=== PATIENT | female | born 1960 | race Caucasian/White ===

== ENCOUNTER 2023-03-20 22:38 | Emergency (ER) | payer OTHER, SELFPAY ==
[2023-03-20 22:45] VITALS: BP 123/101; PULSE 85; RESP 22; O2SAT 92; BMI 48.5
[2023-03-20 23:36] VITALS: PULSE 84; RESP 22; O2SAT 91
[2023-03-20] MEDS: IPRATROPIUM/ALBUTEROL SULFATE 3 ML AMPUL.NEB IH (23:36)
[2023-03-21 00:05] VITALS: BP 122/97; PULSE 84; RESP 20; O2SAT 90
--- NOTE | 2023-03-21 00:05 | ED_ITS ---
HPI - SOB/Dyspnea General Chief Complaint: Shortness of Breath/Dyspnea Stated Complaint: SOB Time Seen by Provider: 03/21/23 00:05 Source: patient Mode of arrival: walk-in History of Present Illness HPI Narrative: history of COPD and diabetes. Presents complaining of shortness of breath for the past week. Increased tonight. No fever or chest pain. no associated nausea. Prescribed zithromax by her PCP and has completed 4 days of therapy. Has noticed a pruritic rash on her extremities and is questioning if she may be allergic to zithromax MD elicited complaint: shortness of breath Pertinent past history: COPD Onset (ago): week(s) Related Data Home Medications Medication Instructions Recorded Confirmed atorvastatin 20 mg tablet mg 03/20/23 citalopram 20 mg tablet mg 03/20/23 empagliflozin 25 mg tablet mg 03/20/23 (Jardiance) glimepiride 4 mg tablet mg 03/20/23 lisinopril 10 mg tablet mg 03/20/23 Allergies Allergy/AdvReac Type Severity Reaction Status Date / Time No Known Drug Allergies Allergy Verified 03/20/23 22:58 Review of Systems ROS Status of ROS 10 or more systems reviewed and unremarkable except as noted in history and below Respiratory Reports: shortness of breath, cough and wheezing Exam Constitutional Vital Signs - 24 hr 03/20/23 22:45 03/20/23 23:36 03/21/23 00:05 Pulse Rate [Monitor] 85 84 84 Respiratory Rate 22 22 20 Blood Pressure [Left Arm] 123/101 H 122/97 H Blood Pressure [Right Arm] Pulse Oximetry 92 L 91 L 90 L Oxygen Delivery Method Room Air Room Air Room Air Oxygen Delivery Flow Rate 03/21/23 00:08 03/21/23 01:00 Pulse Rate [Monitor] 82 77 Respiratory Rate 18 20 Blood Pressure [Left Arm] Blood Pressure [Right Arm] 122/76 H Pulse Oximetry 92 L 93 L Oxygen Delivery Method Nasal Cannula Nasal Cannula Oxygen Delivery Flow Rate 2 1.5 HENMT Common normals: normocephalic and head/scalp atraumatic Eye Common normals: PERRL, EOMs intact bilaterally and conjunctivae normal Neck & C-Spine Common normals: full ROM and no lymphadenopathy Chest Chest: symmetrical chest wall rise Other: diffuse wheeze Cardio Common normals: regular rate, regular rhythm and S1 normal heart sound GI Common normals: Normal to inspection, nondistended, normoactive bowel sounds present and soft to palpation Extremity Common normals: normal to inspection, normal capillary refill and no joint enlargement General: normal exam except as noted Neuro Common normals: oriented x3, CN's II-XII intact bilaterally, moves all extremities and no focal motor deficits Psych Appearance: grossly normal Course Vital Signs Vital signs: Vital Signs Pulse Rate 85 03/20/23 22:45 Respiratory Rate 22 03/20/23 22:45 Blood Pressure 123/101 H 03/20/23 22:45 Pulse Oximetry 92 L 03/20/23 22:45 Oxygen Delivery Method Room Air 03/20/23 22:45 Pulse Rate 77 03/21/23 01:00 Respiratory Rate 20 03/21/23 01:00 Blood Pressure 122/76 H 03/21/23 00:08 Pulse Oximetry 93 L 03/21/23 01:00 Oxygen Delivery Method Nasal Cannula 03/21/23 01:00 Oxygen Delivery Flow Rate 1.5 03/21/23 01:00 MDM - SOB/Dyspnea MDM Narrative Medical decision making narrative: history of COPD and diabetes. Presents ill for the past week with worsening cough. Exam with diffuse wheezing. cxray with bibasiar interstitial opacities. Patient improved and is wheezing less after duoneb x2 and solumedrol 125 IVP. blood cultures ordered and levaquin ordered for CAP. discussed with the hospi talist and patient accepted for admission Differential Diagnosis Differential diagnosis: Likely acute exacerbation of chronic obstructive airways disease and community acquired pneumonia Lab Data Labs: Lab Results 03/21/23 Range/Units 00:00 WBC 11.1 H (4.0-11.0) 10^3/uL RBC 5.41 H (4.20-5.40) 10^6/uL Hgb 14.8 (12.0-16.0) g/dL Hct 45.9 (36.0-48.0) % MCV 84.8 (81.0-99.0) fL MCH 27.4 (26.7-34.0) pg MCHC 32.2 (29.9-35.2) g/dL RDW 15.4 H (11.0-15.0) % Plt Count 319 (150-450) 10^3/uL MPV 10.6 (9.5-13.5) fL Neut % (Auto) 45.6 (43.0-75.0) % Lymph % (Auto) 42.0 (20.5-60.0) % [place] % (Auto) 8.4 (1.7-12.0) % Eos % (Auto) 2.6 (0.9-7.0) % Baso % (Auto) 0.8 (0.2-2.0) % Neut # (Auto) 5.0 (1.4-6.5) 10^3/uL Lymph # (Auto) 4.7 H (1.2-3.8) 10^3/uL [place] # (Auto) 0.9 H (0.3-0.8) 10^3/uL Eos # (Auto) 0.3 (0.0-0.7) 10^3/uL Baso # (Auto) 0.1 (0.0-0.1) 10^3/uL D-Dimer 0.34 (<=0.59) mg/L FEU Sodium 139 (136-145) mmol/L Potassium 4.4 (3.5-5.1) mmol/L Chloride 101 (98-107) mmol/L Carbon Dioxide 25.9 (21.0-32.0) mmol/L Anion Gap 16.5 BUN 13.0 (7.0-18.0) mg/dL Creatinine 0.80 (0.55-1.02) mg/dL Est GFR ( Amer) >60 (>=60) Est GFR (Non-Af Amer) >60 (>=60) BUN/Creatinine Ratio 16.2 Glucose 185 H (74-106) mg/dL Calcium 9.1 (8.5-10.1) mg/dL Troponin I High Sens 4.6 (4.0-51.3) pg/mL NT-Pro-B Natriuret Pep 46.0 (<=900.0) pg/mL Discharge Plan Discharge Chief Complaint: Shortness of Breath/Dyspnea Clinical Impression: Acute exacerbation of chronic obstructive pulmonary disease, Pneumonia, Acute infective exacerbation of chronic obstructive airway disease, Community acquired pneumonia Patient Disposition: Admitted As Inpatient
[2023-03-21 00:08] VITALS: BP 122/76; BP 138/29; PULSE 80; PULSE 82; RESP 16; RESP 18; O2SAT 92; O2SAT 94
--- NOTE | 2023-03-21 00:08 | XR_ITS ---
The [address] [address] Patient Name: MARCIE MENG MRN: [id number] date: 1960 Sex: F Assigned Patient Location: ER Current Patient Location: ER Accession/Order Number: [id number] Exam Date: 03/21/2023 00:10 Report Date: 03/21/2023 01:00 At the request of: CARMELITA BROUSSARD Procedure: XR chest 1V CXR HISTORY: Shortness of breath. COMPARISON: None. TECHNIQUE: 1 view of the chest submitted for review. FINDINGS: Interstitial opacities in the lung bases. The lungs are hyperaerated. The cardiac silhouette measures within normal. Pulmonary vascularity is unremarkable. Osseous structures are normal for age. IMPRESSION: Airspace opacities lung bases. Please correlate for pneumonia vs atelectasis. Electronically authenticated by: KENZIE BHAKTA Date: 03/21/2023 01:00
[2023-03-21 00:30] LABS: Basophils Absolute Auto 0.1 10^3/uL (0.0-0.1); Basophils Percent Auto 0.8 % (0.2-2.0); Eosinophils Absolute Auto 0.3 10^3/uL (0.0-0.7); Eosinophils Percent Auto 2.6 % (0.9-7.0); Hematocrit 45.9 % (36.0-48.0); Hemoglobin 14.8 g/dL (12.0-16.0); Immature Granulocytes Abs Auto 0.07 10^3/uL (0.00-0.03); Immature Granulocytes Pct Auto 0.6 % (0.0-0.5); Lymphocytes Absolute Auto 4.7 10^3/uL (1.2-3.8); Mean Corpuscular HGB Conc 32.2 g/dL (29.9-35.2); Mean Corpuscular Hemoglobin 27.4 pg (26.7-34.0); Mean Corpuscular Volume 84.8 fL (81.0-99.0); Mean Platelet Volume 10.6 fL (9.5-13.5); Monocytes Absolute Auto 0.9 10^3/uL (0.3-0.8); Monocytes Percent Auto 8.4 % (1.7-12.0); Neutrophils Percent Auto 45.6 % (43.0-75.0); Platelet Count 319 10^3/uL (150-450); Red Blood Count 5.41 10^6/uL (4.20-5.40); Red Cell Distribution Width 15.4 % (11.0-15.0); White Blood Count 11.1 10^3/uL (4.0-11.0)
[2023-03-21 00:49] LABS: Anion Gap 16.5; BUN Creatinine Ratio 16.2; Calcium 9.1 mg/dL (8.5-10.1); Carbon Dioxide 25.9 mmol/L (21.0-32.0); Chloride 101 mmol/L (98-107); Estimated GFR (African America >60 (>=60); Estimated GFR (Non-African Ame >60 (>=60); Glucose 185 mg/dL (74-106); Potassium 4.4 mmol/L (3.5-5.1); Sodium 139 mmol/L (136-145); Troponin I High Sensitivity 4.6 pg/mL (4.0-51.3)
[2023-03-21 00:55] LABS: D Dimer 0.34 mg/L FEU (<=0.59)
[2023-03-21] MEDS: METHYLPREDNISOLONE SOD SUCC PF 125 MG/2 ML VIAL IVP (00:55)
[2023-03-21 01:00] VITALS: PULSE 77; RESP 20; O2SAT 93
[2023-03-21] MEDS: IPRATROPIUM/ALBUTEROL SULFATE 3 ML AMPUL.NEB IH (01:00)
--- NOTE | 2023-03-21 03:51 | PC.NURSE ---
Patient zack out AMA. Would not be admitted. RX's provided. Instructed to return if worsens
== END 2023-03-21 03:52 | disposition left against medical advice (07) ==
PROVIDERS: Emergency Provider Internal Medicine; PCP Family Medicine
DX: J18.9 Pneumonia, unspecified organism (principal); J44.1 Chronic obstructive pulmonary disease with (acute) exacerbation; J44.0 Chronic obstructive pulmonary disease with (acute) lower respiratory infection; Z79.899 Other long term (current) drug therapy
CPT/HCPCS: 36415; 71045; 80048; 83880; 84484; 85025; 85378; 87040; 94640; 96365; 96368; 96375; 99285; J2930

== ENCOUNTER 2023-08-20 18:59 | Emergency (ER) | payer OTHER, SELFPAY ==
[2023-08-20 19:01] VITALS: BP 178/78; PULSE 100; RESP 20; TEMP 36.9; O2SAT 96; BMI 49.4
--- NOTE | 2023-08-20 19:09 | XR_ITS ---
The [place] [id number] Patient Name: MARCIE MENG MRN: [id number] date: 1960 Sex: F Assigned Patient Location: ER Current Patient Location: ED.MAIN Accession/Order Number: [id number] Exam Date: 08/20/2023 19:35 Report Date: 08/20/2023 19:56 At the request of: ANNEL MOON Procedure: XR hip RT 2V w/ pelvis EXAM: XR hip RT 2V w/ pelvis HISTORY: Pain COMPARISON: None. TECHNIQUE: AP pelvis and 2 views of the right hip FINDINGS: No osseous lesion, fracture, dislocation or subluxation. Symmetric bilateral hip joint space narrowing and small osteophytes. Age-related changes of the pubic symphysis and sacroiliac joints. Enthesophytes off the tendinous insertions.. No visualized effusion. XR/XR hip RT 2V w/ pelvis IMPRESSION: No visualized acute abnormality Electronically authenticated by: MISA TARIQ Date: 08/20/2023 19:56
--- NOTE | 2023-08-20 19:13 | PC.NURSE ---
pt presents to ED because patient states that she has osteoarthritis to right hip and needs a right hip replacement but has to lose weight before she is able to have the surgery done. patient states that she was on prednisone initially and was told that if that didn't help with the pain then she would end up needing cortisone shots but the patient has been scared to have them done. patient states today she was unable to get in to the bath d/t pain. pt did take a tylenol arthiritis around 9am. patient is able to bear weight to right leg. no new injury.
[2023-08-20] MEDS: KETOROLAC TROMETHAMINE 60 MG/2 ML VIAL IM (19:23)
--- NOTE | 2023-08-20 19:40 | ED.GENADUL1 ---
HPI - General Adult General Chief complaint: Extremity Problem, Nontraumatic Stated complaint: HIP PAIN Time Seen by Provider: 08/20/23 19:09 Source: patient Mode of arrival: walk-in Limitations: no limitations History of Present Illness HPI narrative: 63-year-old female presents here with chief complaint of exacerbation of left hip pain. Patient has chronic hip pain states over last three days since gotten colder she's had increased pain. Patient was taking steroids for her pain previously and states that are not helping. She has seen Dr. Leos for her hip. Patient's had no new injury or trauma.States she was told she needed his way in order to having his hip replacement. Patient is type II diabetic. Patient is ambulating and brought herself to the emergency room. Related Data Home Medications Medication Instructions Recorded Confirmed empagliflozin 25 mg tablet mg 03/20/23 (Jardiance) glimepiride 4 mg tablet mg 03/20/23 lisinopril 10 mg tablet 10 mg PO DAILY 03/20/23 08/20/23 dulaglutide 0.75 mg/0.5 mL mg subcut 08/20/23 subcutaneous pen injector (Trulicity) Allergies Allergy/AdvReac Type Severity Reaction Status Date / Time No Known Drug Allergies Allergy Verified 03/20/23 22:58 Review of Systems ROS Narrative All Systems are negative except as noted/marked.All systems reviewed and otherwise negative PFSH PFS Social History Smoking status: Former smoker Exam Narrative Exam Narrative: Nurses note and vital signs reviewed and patient is not hypoxic. General: The patient appears well and in no apparent distress. Patient is resting comfortably on cart. Skin: Warm, dry, no pallor noted. There is no rash noted. Head: Normocephalic, atraumatic Eye: Normal conjunctiva, no drainage, EOMI. PERRL Ears, Nose, Mouth, and Throat: oral mucosa is moist. Nares patent. Mouth without vesicles. Ear canals patent. Tm's without Erythema Musculoskeletal: left hip tenderness, no leg shortening, neurovascularly intact, all other extremities within normal limits patient has no evidence of calf tenderness, no pitting edema, symmetrical pulses noted bilaterally Neurological: A&O x4, normal speech Psychiatric: Cooperative Constitutional Vital Signs, click to edit/add: Last Vital Signs Temp 98.5 F 08/20/23 19:01 Pulse 100 H 08/20/23 19:01 Resp 20 08/20/23 19:01 BP 178/78 H 08/20/23 19:01 Pulse Ox 96 08/20/23 19:01 O2 Del Method Room Air 08/20/23 19:01 Course Vital Signs Vital signs: Vital Signs Temperature 98.5 F 08/20/23 19:01 Pulse Rate 100 H 08/20/23 19:01 Respiratory Rate 20 08/20/23 19:01 Blood Pressure 178/78 H 08/20/23 19:01 Pulse Oximetry 96 08/20/23 19:01 Oxygen Delivery Method Room Air 08/20/23 19:01 Temperature 98.5 F 08/20/23 19:01 Pulse Rate 100 H 08/20/23 19:01 Respiratory Rate 20 08/20/23 19:01 Blood Pressure 178/78 H 08/20/23 19:01 Pulse Oximetry 96 08/20/23 19:01 Oxygen Delivery Method Room Air 08/20/23 19:01 Medical Decision Making MDM Narrative Medical decision making narrative: Patient presented here chief complaint exacerbation of hip pain. Cc Dr. Leos. X-rays are consistent with chronic arthritis nothing acute. Patient be discharged home and been medicated with Toradol. Discharged home patient patient's 2nd encouraged to follow up with Deric's office. Medical Records Medical records reviewed: Yes I reviewed the patient's medical records Imaging Data hip: Attestation: I have reviewed the pertinent imaging results. My impression: no acute fracture Radiologist's impression: MARCIE MENG MRN: [facility]:[id number] date: 1960 Sex: F Assigned Patient Location: ER Current Patient Location: ED.MAIN Accession/Order Number: [id number] Exam Date: 08/20/2023 19:35 Report Date: 08/20/2023 19:56 At the request of: ANNEL MOON Procedure: XR hip RT 2V w/ pelvis EXAM: XR hip RT 2V w/ pelvis HISTORY: Pain COMPARISON: None. TECHNIQUE: AP pelvis and 2 views of the right hip FINDINGS: No osseous lesion, fracture, dislocation or subluxation. Symmetric bilateral hip joint space narrowing and small osteophytes. Age-related changes of the pubic symphysis and sacroiliac joints. Enthesophytes off the tendinous insertions.. No visualized effusion. IMPRESSION: No visualized acute abnormality Electronically authenticated by: MISA TARIQ Date: 08/20/2023 19 Discharge Plan Discharge Chief Complaint: Extremity Problem, Nontraumatic Clinical Impression: Chronic hip pain Patient Disposition: Home, Self-Care Time of Disposition Decision: 19:52 Condition: Good Prescriptions / Home Meds: No Action lisinopril 10 mg tablet 10 mg PO DAILY glimepiride 4 mg tablet Jardiance 25 mg tablet Trulicity 0.75 mg/0.5 mL pen injector SUBCUT Instructions: Chronic Pain (ED), Hip Pain (ED) Stand Alone Forms: Portal Instructions Referrals: RANJIT BARNARD [Primary Care Provider] - 1 week
== END 2023-08-20 20:21 | disposition home or self-care (01) ==
PROVIDERS: Emergency Provider Emergency Medicine; PCP Family Medicine
DX: M25.552 Pain in left hip (principal); G89.29 Other chronic pain; E11.9 Type 2 diabetes mellitus without complications; Z79.899 Other long term (current) drug therapy; Z87.891 Personal history of nicotine dependence; Z79.85 Long-term (current) use of injectable non-insulin antidiabetic drugs
CPT/HCPCS: 73502; 96372; 99284

== ENCOUNTER 2023-09-07 14:30 | Outpatient (OUT) | payer OTHER, SELFPAY | END 2023-09-07 14:31 | disposition home or self-care (01) | LOC: PST 14:30 | PROVIDERS: PCP Family Medicine; Visit Provider Surgery | DX: Z01.818 Encounter for other preprocedural examination (principal); Z12.11 Encounter for screening for malignant neoplasm of colon; Z86.010 Personal history of colon polyps ==

== ENCOUNTER 2023-09-22 06:23 | Day surgery (SDC) | payer OTHER, SELFPAY ==
--- NOTE | 2023-09-22 | OP_ITS ---
OPERATION DATE: 09/22/2023 PREOPERATIVE DIAGNOSIS: Personal history of colon polyps. POSTOPERATIVE DIAGNOSIS: Sigmoid diverticulosis. PROCEDURE: Colonoscopy to cecum. SURGEON: Caden Villalobos M.D. ANESTHESIA: Monitored anesthesia care. ESTIMATED BLOOD LOSS: Zero. INDICATIONS AND CONSENT: Patient is a 63-year-old female presents for surveillance colonoscopy. Indications, risks, benefits, alternatives of proceeding with colonoscopy were explained extensively to the patient, including the risks of bleeding, colon perforation or anesthetic complications. All of her questions were answered. Informed consent was obtained. PROCEDURE: Patient brought to the operating room, placed in the left lateral decubitus position. Monitored anesthesia care was provided. Rectal exam was performed which revealed no masses or blood. The scope was inserted into the anal canal. Under direct visualization was advanced. It was advanced to the cecum where cecal markings were clearly identified. Upon withdrawal of the scope, mucosal surfaces were carefully examined. There were no mass lesions or polyps. No inflammatory changes or ulcerations. There was moderate sigmoid diverticulosis without inflammatory changes or scarring. The scope was retroflexed in the anal canal. There were prominent rectal veins. No significant hemorrhoidal disease. Scope was then withdrawn. Patient tolerated procedure well, was sent to recovery room in good condition.f/u screening colonoscopy in 10 years. CC: Patient?s family physician, Dr. James GIBSON
[2023-09-22 06:49] VITALS: BP 146/79; PULSE 79; RESP 20; TEMP 35.9; O2SAT 94; BMI 49.1
[2023-09-22 06:54] LABS: Glucometer 176 mg/dL (74-106)
--- NOTE | 2023-09-22 06:54 | PC.NURSE ---
NPO after 2 AM; finished prep at this time
[2023-09-22] MEDS: LACTATED RINGER'S SOLUTION 1,000 ML 50 ML IV (07:02)
[2023-09-22 07:50] VITALS: BP 125/84; PULSE 75; RESP 16; TEMP 36.7; O2SAT 97
[2023-09-22 08:05] VITALS: BP 148/81; PULSE 81; RESP 16; O2SAT 97
[2023-09-22 08:20] VITALS: BP 144/88; PULSE 78; RESP 18; O2SAT 93
== END 2023-09-22 08:20 | disposition home or self-care (01) ==
PROVIDERS: PCP Family Medicine; Visit Provider Surgery
PROC: (CPT 811; principal; 2023-09-22 07:30)
DX: Z12.11 Encounter for screening for malignant neoplasm of colon (principal); Z86.010 Personal history of colon polyps; K57.30 Diverticulosis of large intestine without perforation or abscess without bleeding; J44.9 Chronic obstructive pulmonary disease, unspecified; Z87.891 Personal history of nicotine dependence; I10 Essential (primary) hypertension; E66.01 Morbid (severe) obesity due to excess calories; Z68.42 Body mass index [BMI] 45.0-49.9, adult; E61.1 Iron deficiency; E11.9 Type 2 diabetes mellitus without complications; Z79.85 Long-term (current) use of injectable non-insulin antidiabetic drugs; Z80.0 Family history of malignant neoplasm of digestive organs; Z90.710 Acquired absence of both cervix and uterus; Z79.899 Other long term (current) drug therapy
CPT/HCPCS: 45378; 36415; 82948; J2704

== ENCOUNTER 2024-01-19 08:19 | Outpatient (OUT) | payer OTHER, SELFPAY ==
--- OUTSIDE RECORDS SUMMARY | 2024-01-19 08:22 | XMS_ITS | CCD ---
Author Organization [facility] Care Team Providers Care Auto Service Representative Name Role Phone Keagan Gilliland Primary Care Provider JO-ANN ARNETT Attending Unavailable JO-ANN ARNETT Referring Unavailable KEAGAN GILLILAND Primary Care Unavailable JAMIL MAX Admitting Unavailable JAMIL MAX Consulting Unavailable DARSHANA, DR LESLIE Primary Care Unavailable JAMIL MAX Attending Unavailable DARSHANA, DR LESLIE Consulting Unavailable SUSANVILLE, DR LESLIE Attending Unavailable DARSHANA, DR LESLIE Admitting Unavailable DARSHANA, DR LESLIE Primary Care Unavailable KIET, DR STEVEN Hobbs Consulting Unavailable Roberto Ramirez Primary Care Physician MD Britton Link Attending Provider MD Roberto Ramirez Primary Care Provider Britton Link Attending Unavailable Roberto Ramirez Primary Care Unavailable Britton Link Admitting Unavailable Britton Link Attending Unavailable Roberto Ramirez Primary Care Unavailable Britton Link Admitting Unavailable Roberto Ramirez MD Primary Care Provider [phone] BRITTON NEWSOME Attending Unavailable BRITTON NEWSOME Attending Unavailable BRITTON NEWSOME Attending Unavailable GERALD SCHULTZ Referring Unavailable STEVEN MAZA Attending Unavailable Caden ROLLINS Attending Unavailable Roberto Ramirez Attending Unavailable Roberto Ramirez Attending Unavailable Ginny Gibson Attending Unavailable oRberto Ramirez Attending Unavailable Roberto Ramirez Attending Unavailable Roberto Ramirez Attending Unavailable Roberto Ramirez Attending Unavailable Roberto Ramirez Admitting Unavailable Ginny Gibson Admitting Unavailable Ginny Gibson Attending Unavailable Caden ROLLINS Attending Unavailable Allergies Allergy Classification Reported Allergen(s) Allergy Type Date of Onset Reaction(s) Facility (1 source) Latex Drug allergy (disorder) 5 [facility] Repository (2 sources) Adhesive bandage; Translations: [Adhesive Bandage] Propensity to adverse reactions to substance Eruption of skin (disorder) [facility] (3 sources) natural latex rubber; Translations: [Latex, Natural Rubber] Allergy to substance 3 [facility] (3 sources) Latex Allergy to substance 6 Hives, Rash [facility] Work Phone: (3 sources) Wound Dressing Adhesive Drug Intolerance 3 Rash [facility] (1 source) No Known Medication Allergies; Translations: [No Known Medication Allergies] Propensity to adverse reactions (disorder) [facility] Repository NEGATED: Highlighted row has been ruled out! (1 source) Drug allergy [facility] Medications Current Medications Medication Drug Class(es) Dates Sig (Normalized) Sig (Original) 0.25 MG, 0.5 MG Dose 3 ML semaglutide 0.68 MG/ML Pen Injector [Ozempic] (1 source) Start: 07-08-2023 Ozempic 2 mg/3 mL (0.25 mg or 0.5 mg dose) subcutaneous solution 0.25 mg, SubCutaneous, qWeek, # 1 EA, Refills(s) 0, Pharmacy: [facility] #[id number], 166.5, cm, 07/08/23 8:19:00 EDT, Height/Length Dosing, 136.7, kg, 07/08/23 8:19:00 EDT, Weight Dosing Start Date: 07/08/23 Status: Ordered acetaminophen 325 mg / HYDROcodone bitartrate 5 mg oral tablet (2 sources) Opioid Agonist Start: 10-14-2023 take 1 tablet by mouth every six hours Hydrocodone-Acetam inophen Active 1 TAB PO Q6H October 14, 2023 12:00am atorvastatin 20 mg oral tablet (5 sources) HMG-CoA Reductase Inhibitor Start: 09-08-2023 take 1 tablet by mouth in the morning atorvastatin (Lipitor) 20 MG tablet Take 20 mg by mouth in the morning. 0 09/08/2023 Active Start: 07-08-2023 take 1 tablet by mouth in the morning cholecalciferol 0.05 mg oral capsule (2 sources) Vitamin D Start: 10-14-2023 take 1 capsule by mouth once daily Cholecalciferol (Vitamin D3) (Vitamin D3) 50 mcg (2,000 unit) Capsule Active 50 MCG PO Daily October 14, 2023 12:00am 0.5 ml dulaglutide 3 mg/ml auto-injector (7 sources) GLP-1 Receptor Agonist Start: 07-23-2023 inject 1.5 mg by subcutaneous injection every week Trulicity 1.5 MG/0.5ML solution pen-injector INJECT 1.5 MG SUBCUTANEOUSLY ONCE A WEEK 0 07/23/2023 Active Start: 07-08-2023 inject 1.5 mg by sub cutaneous injection every week Trulicity Pen 0.75 mg/0.5 mL subcutaneous solution 2 mL, INJECT 0.75 MG UNDER THE SKIN ONCE WEEKLY FOR 4 WEEKS THEN INJECT 1.5 MG ONCE WEEKLY THEREAFTER, Refills(s) 0 Start Date: 07/08/23 Status: Ordered empagliflozin 25 mg oral tablet (7 sources) Sodium-Glucose Cotransporter 2 Inhibitor Start: 07-08-2023 take 1 tablet by mouth once daily Empagliflozin (Jardiance) 25 mg tablet Active 25 MG PO Daily October 14, 2023 12:00am fluconazole 150 mg oral tablet (1 source) Azole Antifungal Start: 08-04-2023 take 1 tablet by mouth once Diflucan 150 mg Tab 150 mg = 1 tab(s), Oral, Once, # 1 tab(s), Refills(s) 0, Pharmacy: [facility] #[id number], 166.5, cm, 08/04/23 8:45:00 EDT, Height/Length Dosing, 137.8, kg, 08/04/23 8:45:00 EDT, Weight Dosing Start Date: 08/04/23 Status: Ordered glimepiride 4 mg oral tablet (7 sources) Sulfonylurea Start: 10-14-2023 take 4 mg by mouth once daily Glimepiride Active 4 MG PO Daily October 14, 2023 12:00am Start: 07-08-2023 take 4 tablets by mo uth twice daily, then take 1 tablet by mouth in the morning, then take 1 tablet by mouth at bedtime Incruse Ellipta 62.5 mcg inhalation powder (2 sources) Start: 07-08-2023 take 62.5 ug by inhalation in the morning lisinopril 10 mg oral tablet (7 sources) Angiotensin Converting Enzyme Inhibitor Start: 08-04-2023 take 1 tablet by mouth once daily lisinopril 40 mg Tab 40 mg = 1 tab(s), Oral, Daily, # 90 tab(s), Refills(s) 0, [facility]acy: [facility] #[id number], 166.5, cm, 08/04/23 8:45:00 EDT, Height/Length Dosing, 137.8, kg, 08/04/23 8:45:00 EDT, Weight Dosing Start Date: 08/04/23 Status: Ordered Start: 07-08-2023 take 10 mg by mouth once daily in the morning Lisinopril Active 10 MG PO Every morning October 14, 2023 12:00am Multi Vitamin+ (2 sources) Start: 07-08-2023 Multi Vitamin+ See Instructions, Refill(s) 0, one tab daily Start Date: 07/08/23 Status: Ordered Multiple Vitamin (multivitamin) tablet (3 sources) take 1 tablet by mouth in the morning Multiple Vitamin (multivitamin) tablet Take 1 tablet by mouth in the morning. 0 Active Ds-Rfz-Biwbp-Calcium Carb-K1 (Women's 50 Plus Multivitamin) 400 mcg-500 mg calcium-20 mcg Tablet (2 sources) Start: 10-14-2023 take 1 tablet by mouth once daily Nw-Tkk-Ylupk-Calci um Carb-K1 (Women's 50 Plus Multivitamin) 400 mcg-500 mg calcium-20 mcg Tablet Active 1 TAB PO Daily October 14, 2023 12:00am polysaccharide iron complex 391 mg oral capsule (3 sources) Start: 08-21-2023 take 1 capsule by mouth in the morning ProFe 391.3 (180 Fe) MG capsule Take 1 capsule by mouth in the morning. 0 08/21/2023 Active ProFe 180 mg oral capsule (1 source) Start: 07-12-2023 take 1 capsule by mouth once daily ProFe 180 mg oral capsule 180 mg = 1 cap(s), Oral, Daily, # 100 cap(s), Refills(s) 3, Pharmacy: [facility] #[id number], 166.5, cm, 07/08/23 8:19:00 EDT, Height/Length Dosing, 136.7, kg, 07/08/23 8:19:00 EDT, Weight Dosing Start Date: 07/12/23 Status: Ordered terbinafine 250 mg oral tablet (2 sources) Allylamine Antifungal Start: 10-14-2023 take 25 mg by mouth once daily in the morning Terbinafine Hcl Active 25 MG PO Every morning October 14, 2023 12:00am 7 actuat umeclidinium 0.0625 mg/actuat dry powder inhaler (3 sources) Anticholinergic Umeclidinium [place] (Incruse Ellipta) 62.5 MCG/ACT aerosol powder Inhale. 0 Active Completed/Discontinued Medications Medication Drug Class(es) Dates Sig (Normalized) Sig (Original) citalopram 20 mg oral tablet (2 sources) Serotonin Reuptake Inhibitor Start: 07-08-2023 take 1 tablet by mouth once daily citalopram 20 mg Tab 90 EA, take 1 tablet by mouth once daily, Refills(s) 0 Start Date: 07/08/23 Status: Ordered Problems Active Problems Problem Classification Problem Date Documented Date Episodic/Chronic Chronic obstructive pulmonary disease and bronchiectasis (2 sources) Chronic obstructive lung disease 07-08-2023 Chronic Deficiency and other anemia (1 source) Anemia due to unknown mechanism 07-08-2023 Episodic Diabetes mellitus with complications (4 sources) Type 2 diabetes mellitus with other circulatory complications; Translations: [TYP 2 DM W/CIRC COMPLICATIONS] Onset: 12-22-2022 Chronic Diabetes mellitus without complication (2 sources) Type 2 diabetes mellitus 07-08-2023 Chronic Essential hypertension (3 sources) Essential (primary) hypertension; Translations: [Hypertensive disorder] Onset: 12-25-2022 07-08-2023 Chronic Mycoses (3 sources) Candidiasis of vagina; Translations: [Onychomycosis] 07-22-2023 Episodic Nutritional deficiencies (1 source) Vitamin D deficiency, unspecified; Translations: [VITAMIN D DEFICIENCY UNSPECIFIED] Onset: 12-25-2022 Chronic Nutritional deficiencies (1 source) Iron deficiency 07-12-2023 Episodic Osteoarthritis (1 source) Unilateral primary osteoarthritis, right hip; Translations: [UNI PRIM OSTEOARTHRITIS RT HIP] Onset: 09-26-2022 Chronic Other and unspecified benign neoplasm (2 sources) History of polyp of colon; Translations: [Personal history of colonic polyps] Onset: 08-25-2023 Episodic Other connective tissue disease (2 sources) Pain in toe; Translations: [Pain in unspecified toe(s)] 11-30-2023 Episodic Other female genital disorders (1 source) Other specified noninflammatory disorders of vagina; Translations: [Other specified noninflammatory disorders of vagina] Onset: 10-28-2023 Episodic Other female genital disorders (3 sources) Vaginal mass; Translations: [Other specified noninflammatory disorders of vagina] Onset: 10-19-2023 10-19-2023 Episodic Other nervous system disorders (2 sources) Difficulty walking; Translations: [Difficulty in walking, not elsewhere classified] 11-30-2023 Chronic Other non-traumatic joint disorders (2 sources) Hip pain 07-08-2023 Episodic Other nutritional; endocrine; and metabolic disorders (2 sources) Body mass index 40+ - severely obese; Translations: [Body mass index (BMI) 45.0-49.9, adult] Onset: 08-25-2023 Chronic Other nutritional; endocrine; and metabolic disorders (1 source) Morbid obesity 08-25-2023 Chronic Other screening for suspected conditions (not mental disorders or infectious disease) (1 source) Screening for malignant neoplasm of colon done; Translations: [Encounter for screening for malignant neoplasm of colon] Onset: 08-25-2023 Episodic Other skin disorders (2 sources) Skin tag 07-08-2023 Episodic Other skin disorders (1 source) Epidermal cyst; Translations: [Epidermal cyst] Onset: 10-28-2023 Episodic Other skin disorders (3 sources) Epidermoid cyst; Translations: [Epidermal cyst] Onset: 10-19-2023 10-19-2023 Episodic Other skin disorders (2 sources) Dystrophia unguium; Translations: [Nail dystrophy] 11-30-2023 Episodic Screening and history of mental health and substance abuse codes (2 sources) Ex-smoker 07-08-2023 Episodic Spondylosis; intervertebral disc disorders; other back problems (1 source) Low back pain; Translations: [Low back pain] Episodic Unclassified (3 sources) Patient encounter status 07-08-2023 Unclassified (1 source) Encounter for preprocedural laboratory examination; Translations: [Encounter for preprocedural laboratory examination] Onset: 10-14-2023 Past or Other Problems Problem Classification Problem Date Documented Da te Episodic/Chronic Other non-traumatic joint disorders (4 sources) Pain in right hip; Translations: [PAIN IN RIGHT HIP] Onset: 09-22-2022 Episodic Results Test Name Value Interpretation Reference Range Facil ity Ambulatory Visit Summaryon 0 12-21-2023 Ambulatory Visit Summary KASSI MENG :1960 Visit Date:12/21/2023 Ambulatory Visit Instructions Your Diagnosis HTN (hypertension) BMI 45.0-49.9, adult Class 3 obesity Former smoker Type 2 diabetes mellitus Your Care Team Attending Physician - Roberto Ramirez MD Primary Care Physician - Roberto Ramirez MD This Is Your Medications List lisinopril (lisinopril 20 mg Tab) Contact prescribing physician if questions or concerns atorvastatin (atorvastatin 20 mg Tab) dulaglutide (Trulicity Pen 0.75 mg/0.5 mL subcutaneous solution) empagliflozin (Jardiance 25 mg oral tablet) glimepiride (glimepiride 4 mg Tab) iron polysaccharide (ProFe 180 mg oral capsule) multivitamin (Multi Vitamin+) umeclidinium (Incruse Ellipta 62.5 mcg inhalation powder) Procedures Performed Excision of mass (10/29/2023), Bunionectomy, Colonoscopy, Colonoscopy, Colonoscopy, Correction of hammer toe, AMEE BSO - Total abdominal hysterectomy and bilateral salpingo-oophorecto my, Tonsillectomy and adenoidectomy. Discharge Vitals Temperature (Temporal Artery) 36.2 ?C Heart Rate (Peripheral) 88 Respiratory Rate 16 Blood Pressure 142/80 Height 166.5 cm Height 66 in Weight 137.3 kg Weight 302.06 lb BMI 49.53 What to do next Scheduled Follow-Up Appointments February. 2023 2:00 PM EDT With: Roberto Ramirez MD Where: [facility] Tony Normal [facility] Family Medicine Office/Clini c Noteon 12-21-2023 Family Medicine Office/Clinic Note HPI Staff Kassi is a 63 year old female presenting for 6 week blood pressure check MCKAY elevated BP but not on any meds Patient is here for follow up on hypertension. How often are you checking your blood pressure? Doesnt check BP at home What are your average readings? N/A, Not checking at home Yearly BMP: 07/08/23 flu: UTD 06/24/23 questions/concerns: none History of Present Illness Patient is here for blood pressure recheck. Patient's blood pressure is elevated today. Patient is not checking her blood pressures at home. Patient has a machine but does not use it. Review of Systems PHQ Score Initial Depression Screen Score: 0 SCORE Physical Exam Vitals & Measurements T: 36.2 ?C(Temporal Artery) HR: 88(Peripheral) RR: 16 BP: 142/80 SpO2: 96% HT: 66 in HT: 166.5 cm WT: 137.3 kg WT: 302.06 lb BMI: 49.53 General: alert, no acute distress ENMT: oral mucosa moist, Cardiovascular: regular rate and rhythm, normal peripheral perfusion Respiratory: Lungs CTA, respirations non labored Extremities: no deformity, no trauma Neurological: oriented x 4, LOC appropriate for age, CN II-XII intact, motor strength equal & normal bilaterally, speech normal Abdomen: Soft, Nontender, Non-distended, + BS Assessment/Plan 1. HTN (hypertension) (I10: Essential (primary) hypertension) Patient's blood pressure is elevated today. With that we are going to increase her lisinopril to 20. Patient is a follow-up in 2 months. Ordered: Body Mass Index (BMI) documented 3008F Current tobacco non-user 1036F Depression Screening Negative 3352F Influenza immunization administered or previously received 4274F Most recent diastolic blood pressure 80-89 mm Hg 3079F Most recent systolic blood pressure >= 140 mm Hg 3077F 2. BMI 45.0-49.9, adult (Z68.42: Body mass index [BMI] 45.0-49.9, adult) BMI education uploaded to the chart Ordered: Body Mass Index (BMI) documented 3008F Current tobacco non-user 1036F Depression Screening Negative 3352F Influenza immunization administered or previously received 4274F Most recent diastolic blood pressure 80-89 mm Hg 3079F Most recent systolic blood pressure >= 140 mm Hg 3077F 3. Class 3 obesity (E66.01: Morbid (severe) obesity due to excess calories) Diet and exercise advised Ordered: Body Mass Index (BMI) documented 3008F Current tobacco non-user 1036F Depression Screening Negative 3352F Influenza immunization administered or previously received 4274F Most recent diastolic blood pressure 80-89 mm Hg 3079F Most recent systolic blood pressure >= 140 mm Hg 3077F 4. Former smoker (Z87.891: Personal history of nicotine dependence) Please continue not to smoke Ordered: Body Mass Index (BMI) documented 3008F Current tobacco non-user 1036F Depression Screening Negative 3352F Influenza immunization administered or previously received 4274F Most recent diastolic blood pressure 80-89 mm Hg 3079F Most recent systolic blood pressure >= 140 mm Hg 3077F 5. Type 2 diabetes mellitus (E11.9: Type 2 diabetes mellitus without complications) Patient states the last A1c was 8.1 Encouraged the patient to discuss increasing Trulicity with her hand weaver as soon as possible. Orders: lisinopril, 20 mg = 1 tab(s), Oral, Daily, # 90 tab(s), Refills(s) 0, Pharmacy: [facility] #[id number], 66.5, cm, 12/21/23 13:52:00 EST, Height/Length Dosing, 137.3, kg, 12/21/23 13:52:00 EST, Weight Dosing Follow-up No qualifying data available Patient Education BMI for Adults Problem List/Past Medical History Ongoing BMI 45.0-49.9, adult COPD without exacerbation Former smoker Hip pain, right HTN (hypertension) Iron deficiency Morbid obesity Personal history of colonic polyps Screening for colorectal cancer Screening for malignant neoplasm of colon Skin tag Type 2 diabetes mellitus Vaginal yeast infection Historical No qualifying data Procedure/Surgical History Excision of mass (10/29/2023), Bunionectomy, Colonoscopy, Colonoscopy, Colonoscopy, Correction of hammer toe, AMEE BSO - Total abdominal hysterectomy and bilateral salpingo-oophorecto my, Tonsillectomy and adenoidectomy. Medications atorvastatin 20 mg Tab glimepiride 4 mg Tab, BID Incruse Ellipta 62.5 mcg inhalation powder Jardiance 25 mg oral tablet lisinopril 20 mg Tab, 20 mg= 1 tab(s), Oral, Daily Multi Vitamin+, See Instructions ProFe 180 mg oral capsule, 180 mg= 1 cap(s), Oral, Daily, 3 refills Trulicity Pen 0.75 mg/0.5 mL subcutaneous solution Allergies Adhesive Bandage (Rash) No Known Medication Allergies Social History Alcohol - Denies Alcohol Use, 08/25/2023 Substance Abuse Past, Marijuana, IV drug use: No. Drug use interferes with work/home: No. Ready to change: No. Household substance abuse concerns: No., 08/25/2023 Tobacco Former smoker, quit more than 30 days ago Tobacco Use:. Former smokeless tobacco user, quit more than 30 days ago Smokeless Tobacco Use:. Cigarettes, Vaping (more content not included)... Normal [facility] Comment on above: Result Comment: Elec tronically Signed By: James SORIANO, Roberto Wallace\.br\Date and Time Signed: 12/21/23 14:19 EST Patient Educationon 12-21-19 Patient Education Nutrition BMI for Adults What is BMI? Body mass index (BMI) is a number that is calculated from a person's weight and height. BMI can help estimate how much of a person's weight is composed of fat. BMI does not measure body fat directly. Rather, it is an alternative to procedures that directly measure body fat, which can be difficult and expensive. BMI can help identify people who may be at higher risk for certain medical problems. What are BMI measurements used for? BMI is used as a screening tool to identify possible weight problems. It helps determine whether a person is obese, overweight, a healthy weight, or underweight. BMI is useful for: ? Identifying a weight problem that may be related to a medical condition or may increase the risk for medical problems. ? Promoting changes, such as changes in diet and exercise, to help reach a healthy weight. BMI screening can be repeated to see if these changes are working. How is BMI calculated? BMI involves measuring your weight in relation to your height. Both height and weight are measured, and the BMI is calculated from those numbers. This can be done either in [place] or metric measurements. Note that charts and online BMI calculators are available to help you find your BMI quickly and easily without having to do these calculations yourself. To calculate your BMI in [place] measurements: 1. Measure your weight in pounds (lb). 2. Multiply the number of pounds by 703. ? For example, for a person who weighs 180 lb, multiply that number by 703, which equals 126,540. 3. Measure your height in inches. Then multiply that number by itself to get a measurement called inches squared. ? For example, for a person who is 70 inches tall, the inches squared measurement is 70 inches x 70 inches, which equals 4,900 inches squared. 4. Divide the total from step 2 (number of lb x 703) by the total from step 3 (inches squared): 126,540 ? 4,900 = 25.8. This is your BMI. To calculate your BMI in metric measurements: 1. Measure your weight in kilograms (kg). 2. Measure your height in meters (m). Then multiply that number by itself to get a measurement called meters squared. ? For example, for a person who is 1.75 m tall, the meters squared measurement is 1.75 m x 1.75 m, which is equal to 3.1 meters squared. 3. Divide the number of kilograms (your weight) by the meters squared number. In this example: 70 ? 3.1 = 22.6. This is your BMI. What do the results mean? BMI charts are used to identify whether you are underweight, normal weight, overweight, or obese. The following guidelines will be used: ? Underweight: BMI less than 18.5. ? Normal weight: BMI between 18.5 and 24.9. ? Overweight: BMI between 25 and 29.9. ? Obese: BMI of 30 or above. Keep these notes in mind: ? Weight includes both fat and muscle, so someone with a muscular build, such as an athlete, may have a BMI that is higher than 24.9. In cases like these, BMI is not an accurate measure of body fat. ? To determine if excess body fat is the cause of a BMI of 25 or higher, further assessments may need to be done by a health care provider. ? BMI is usually interpreted in the same way for men and women. Where to find more information For more information about BMI, including tools to quickly calculate your BMI, go to these websites: ? Centers for Disease Control and Prevention: www.cdc.gov ? [place] [employer]: www.heart.org ? National Heart, Lung, and Blood [employer]: www.nhlbi.nih.gov Summary ? Body mass index (BMI) is a number that is calculated from a person's weight and height. ? BMI may help estimate how much of a person's weight is composed of fat. BMI can help identify those who may be at higher risk for certain medical problems. ? BMI can be measured using [place] measurements or metric measurements. ? BMI charts are used to identify whether you are underweight, normal weight, overweight, or obese. This information is not intended to replace advice given to you by your health care provider. Make sure you discuss any questions you have with your health care provider. Document Revised: 06/26/2020 Document Reviewed: 05/03/2020 [employer] Patient Education ? 2022 [employer]. Normal [facility] Consultation Noteon 11-10-19 24 Consultation Note [id number] C#1.00TIFF [facility] Lab Reportson 11-10-2023 Lab Reports [id number] 50#1.00TIFF [facility] Pathology Noteon 11-10-2023 Pathology Note [id number] 760#1.00TIFF [facility] Family Medicine Office/Clini c Noteon 11-04-2023 Family Medicine Office/Clinic Note HPI Staff Kassi is a 63 year old female presenting for 3 month follow up Dm, HTN Patient is here for follow up on hypertension. How often are you checking your blood pressure? Doesnt check BP at home What are your average readings? N/A, Not checking at home Yearly BMP: 07/08/23 Do you have any of the following symptoms? Foot Exam: none Eye Exam: UTD Last A1C: doing A1C tomorrow ( see endo) Statin: atorvastatin 20 flu: UTD 06/24/23 questions/concerns: recent surgery last wednesday, ( mass excised from labia and skin tags off) did biopsy will find out results tomorrow History of Present Illness - Here for follow up. - See staff HPI. Review of Systems PHQ Score Initial Depression Screen Score: 0 SCORE Physical Exam Vitals & Measurements T: 36.7 ?C(Temporal Artery) HR: 82(Peripheral) RR: 16 BP: 150/82 SpO2: 95% HT: 66 in HT: 166.5 cm WT: 139.0 kg WT: 305.8 lb BMI: 50.14 General: alert, no acute distress ENMT: oral mucosa moist, Cardiovascular: regular rate and rhythm, normal peripheral perfusion Respiratory: Lungs CTA, respirations non labored Extremities: no deformity, no trauma Neurological: oriented x 4, LOC appropriate for age, CN II-XII intact, motor strength equal & normal bilaterally, speech normal Abdomen: Soft, Nontender, Non-distended, + BS Assessment/Plan 1. HTN (hypertension) (I10: Essential (primary) hypertension) - Elevated today, but not on meds - Will recheck in 6 weeks - If still elevated, we will increase meds Ordered: Body Mass Index (BMI) documented 3008F Current tobacco non-user 1036F Depression Screening Negative 3352F Influenza immunization administered or previously received 4274F Most recent diastolic blood pressure 80-89 mm Hg 3079F Systolic BP <130 mm Hg (Most Recent) 3074F 2. Type 2 diabetes mellitus (E11.9: Type 2 diabetes mellitus without complications) - Monitor and will get A1c from Endo Ordered: Body Mass Index (BMI) documented 3008F Current tobacco non-user 1036F Depression Screening Negative 3352F Influenza immunization administered or previously received 4274F Most recent diastolic blood pressure 80-89 mm Hg 3079F Systolic BP <130 mm Hg (Most Recent) 3074F 3. BMI 50.0-59.9, adult (Z68.43: Body mass index [BMI] 50.0-59.9, adult) - BMI education given Ordered: Body Mass Index (BMI) documented 3008F Current tobacco non-user 1036F Depression Screening Negative 3352F Influenza immunization administered or previously received 4274F Most recent diastolic blood pressure 80-89 mm Hg 3079F Systolic BP <130 mm Hg (Most Recent) 3074F 4. Class 3 severe obesity due to excess calories in adult (E66.01: Morbid (severe) obesity due to excess calories) - Diet and exercise advised. Ordered: Body Mass Index (BMI) documented 3008F Current tobacco non-user 1036F Depression Screening Negative 3352F Influenza immunization administered or previously received 4274F Most recent diastolic blood pressure 80-89 mm Hg 3079F Systolic BP <130 mm Hg (Most Recent) 3074F 5. Former smoker (Z87.891: Personal history of nicotine dependence) - Please continue to not smoke. Ordered: Body Mass Index (BMI) documented 3008F Current tobacco non-user 1036F Depression Screening Negative 3352F Influenza immunization administered or previously received 4274F Most recent diastolic blood pressure 80-89 mm Hg 3079F Systolic BP <130 mm Hg (Most Recent) 3074F 6. COPD without exacerbation (J44.9: Chronic obstructive pulmonary disease, unspecified) - Stable - Not on meds Orders: lisinopril, 10 mg = 1 tab(s), Oral, Daily, # 30 tab(s), Refills(s) 0, Pharmacy: [facility] #[id number], 166.5, cm, 11/04/23 12:46:00 EST, Height/Length Dosing, 139, kg, 11/04/23 12:46:00 EST, Weight Dosing Follow-up No qualifying data available Problem List/Past Medical History Ongoing BMI 45.0-49.9, adult COPD without exacerbation Former smoker Hip pain, right HTN (hypertension) Iron deficiency Morbid obesity Personal history of colonic polyps Screening for colorectal cancer Screening for malignant neoplasm of colon Skin tag Type 2 diabetes mellitus Vaginal yeast infection Historical No qualifying data Procedure/Surgical History Excision of mass (10/29/2023), Bunionectomy, Colonoscopy, Colonoscopy, Colonoscopy, Correction of hammer toe, AMEE BSO - Total abdominal hysterectomy and bilateral salpingo-oophorecto my, Tonsillectomy and adenoidectomy. Medications atorvastatin 20 mg Tab, Not taking glimepiride 4 mg Tab, BID Incruse Ellipta 62.5 mcg inhalation powder Jardiance 25 mg oral tablet lisinopril 10 mg Tab, 10 mg= 1 tab(s), Oral, Daily Multi Vitamin+, See Instructions ProFe 180 mg oral capsule, 180 mg= 1 cap(s), Oral, Daily, 3 refills Trulicity Pen 0.75 mg/0.5 mL subcutaneous solution, Not taking Allergies Adhesive Bandage (Rash) No Known Medication Allergies Social History Alcohol - Denies Alcohol Use, 08/25/2023 [facility] (more content not included)... Normal [facility] Comment on above: Result Comment: Elec tronically Signed By: James SORIANO, Roberto Wallace\.br\Date and Time Signed: 11/04/23 13:03 EST Glucose Glucometer (BldC) [M ass/Vol]Ordered By: Britton Link on 10-28-2023 Glucose [Mass/Vol] 170 mg/dL [facility] Comment on above: Random Glucose Refer ence Range is dependent on time and content of last meal. Glucose of more than 200 mg/dL in a nonstressed, ambulatory subject supports the diagnosis of Diabetes Mellitus. Glucose Poct Glucometerson 0 10-28-2023 Glucose [Mass/Vol] 170 mg/dL Normal [facility] Comment on above: Result Comment: [place] om Glucose Reference Range is dependent on time and content of last meal. Glucose of more than 200 mg/dL in a nonstressed, ambulatory subject supports the diagnosis of Diabetes Mellitus. PERFORMED BY: [address] [place] [address] PATHOLOGIST TRUCK WASHER MIGUEL FOLEY M.D. Performed By: #### G LULS #### Point of Care testing , Commemt1 Glu2: Cleaned Meter Normal [facility] Comment on above: Result Comment: PERF ORMED BY: [facility] [address] [place] [address] PATHOLOGIST TRUCK WASHER MIGUEL FOLEY M.D. Performed By: #### G LULS #### Point of Care testing , Glucose [Mass/Vol] 217 mg/dL Normal [facility] Comment on above: Result Comment: [place] om Glucose Reference Range is dependent on time and content of last meal. Glucose of more than 200 mg/dL in a nonstressed, ambulatory subject supports the diagnosis of Diabetes Mellitus. Performed By: #### G LULS #### Point of Care testing , Obey 10-28-2023 L Specimen: [id number] Received: 10/28/23 Status: [facility] Num: [id number] Spec Type: Surgical Subm Dr: Britton Link MD Tissues: A Skin-Other than Cyst, tag, debridement or plastic repair (RT THIGH MASS) B Skin-Other than Cyst, tag, debridement or plastic repair (LT LABIAL MASS) C Skin-Other than Cyst, tag, debridement or plastic repair (LT CHEST MASS) Procedures: S 100, HE/3, Gross/Micro L4/3, AE1-AE3, Ki-67, SOX-10 Age/ Patient Sex Location Account Attending Physician Kassi Meng 63/F [place] [id number] Britton Link MD SPEC NUM: [id number] RECD: 10/28/23 STATUS: [facility] [place] NUM: [id number] NANNETTE: 10/28/23 [facility] DR: Britton Link MD ENTERED: 10/28/[address] [facility] [address]: SPEC TYPE: Surgical DEPT: S ORDERED: S 100, HE/3, Gross/Micro L4/3, AE1-AE3, Ki-67, SOX-10 ORDERED: S 100, HE/3, Gross/Micro L4/3, AE1-AE3, Ki-67, SOX-10 Pathological Diagnosis A. Skin Lesion, Right Thigh, Biopsy: Fibroepithelial Polyp (skin Tag). B. Mass, Left Labia, Biopsy: Features consistent with Granular Cell Tumor. Diagnosis is confirmed with SOX10, S100, Pankeratin and Ki67 immunostain. C. Skin Lesion, Left Chest, Biopsy: Fibroepithelial Polyp (skin Tag). Clinical Information Vaginal mass, skin tags Gross Description A. Received in formalin labeled with the patient's name, date of and right thigh mass is a 1.0 x 0.7 x 0.4 cm seals-pink, polypoid skin that is inked and bisected. Entirely submitted in one cassette labeled A1. B. Received in formalin labeled with the patient's name, date of and left labial mass is a 2.0 x 1.3 x 1.3 cm yellow-seals, rubbery tissue that is inked and sectioned. The cut surface is predominantly rubbery, rouse-white with yellow-seals, lobular tissue. Entirely submitted in one cassette labeled B1. Specimen: [id number] Received: 10/28/23 Status: [facility] [place] Num: [id number] Spec Type: Surgical Subm Dr: Britton Link MD Tissues: A Skin-Other than Cyst, tag, debridement or plastic repair (RT THIGH MASS) B Skin-Other than Cyst, tag, debridement or plastic repair (LT LABIAL MASS) C Skin-Other than Cyst, tag, debridement or plastic repair (LT CHEST MASS) Procedures: S 100, HE/3, Gross/Micro L4/3, AE1-AE3, Ki-67, SOX-10 Patient: Kassi Meng [id number] (Continued) Specimen: Received: 10/28/23 (Continued) Gross Description (Continued) Signed (signatur e on file) Maya Pak MD 11/07/23 2249 Specimen: S2 Received: 10/28/23 Status: [facility] [place] Num: [id number] Spec Type: Surgical Subm Dr: Britton Link MD Tissues: A Skin-Other than Cyst, tag, debridement or plastic repair (RT THIGH MASS) B Skin-Other than Cyst, tag, debridement or plastic repair (LT LABIAL MASS) C Skin-Other than Cyst, tag, debridement or plastic repair (LT CHEST MASS) Procedures: S 100, HE/3, Gross/Micro L4/3, AE1-AE3, Ki-67, SOX-10 Patient: TeKassi [id number] (Continued) Specimen: [id number] Received: 10/28/23 (Continued) Gross Description (Continued) C. Received in formalin labeled with the patient's name, date of and left chest mass is a 1.0 x 0.9 x 0.4 cm seals-white, polypoid and wrinkled skin that is inked and bisected. Entirely submitted in one cassette labeled C1. Microscopic Description A. One H E slide reviewed. The microscopic examination confirms the diagnosis. B. One H E slide reviewed. The microscopic examination confirms the diagnosis. C. One H E slide reviewed. The microscopic examination confirms the diagnosis. CPT Codes 06498, 10184g7 Specimen: [id number] Received: 10/28/23 Status: [facility] [place] Num: [id number] Spec Type: Surgical Subm Dr: Britton Link MD Tissues: A Skin-Other than Cyst, tag, debridement or plastic repair (RT THIGH MASS) B Skin-Other than Cyst, tag, debridement or plastic repair (LT LABIAL MASS) C Skin-Other than Cyst, tag, debridement or plastic repair (LT CHEST MASS) Procedures: S 100, HE/3, Gross/Micro L4/3, AE1-AE3, Ki-67, SOX-10 (more content not included)... Normal [facility] No Panel InformationOrdered By: Britton Link on 10-28-2023 Bedside Glucose Comment Glu2: cleaned meter [facility] ECG 12-Leadon 10-20-2023 ECG 12-Lead [id number] 5F#1.00TIFF Normal [facility] Basic Metabolic Panelon 12-2 Anion gap [Moles/Vol] 10.3 mmol/L Normal 6.0-15.0 [facility] Comment on above: Performed By: #### B MP, CBC #### [facility] [address] [place] [address] Calcium [Mass/Vol] 9.3 mg/dL Normal 8.6-10.3 [facility] Comment on above: Result Comment: PERF ORMED BY: [place] [address] PATHOLOGIST TRUCK WASHER MIGUEL FOLEY M.D. Performed By: #### B MP, CBC #### [facility] [address] [place] [address] [place] Chloride [Moles/Vol] 103 mmol/L Normal 98-107 [facility] Comment on above: Performed By: #### B MP, CBC #### [facility] [address] CO2 [Moles/Vol] 27.2 mmol/L Normal 21.0-31.0 [facility] Comment on above: Performed By: #### B MP, CBC #### [address] Creatinine [Mass/Vol] 0.65 mg/dL Normal 0.60-1.20 [facility] Comment on above: Performed By: #### B MP, CBC #### [place] [address] [place] GFR/1.73 sq M.predicted MDRD (S/P/Bld) [Vol rate/Area] mL/min/{1.73_m2} Normal [facility] Comment on above: Performed By: #### B MP, CBC #### [place] [address] [place] Glucose [Mass/Vol] 153 mg/dL High 70-100 [facility] Comment on above: Result Comment: [place] Glucose Reference Range is dependent on time and content of last meal. Glucose of more than 200 mg/dL in a nonstressed, ambulatory subject supports the diagnosis of Diabetes Mellitus. ADA recommended reference range Performed By: #### B MP, CBC #### [address] Potassium [Moles/Vol] 4.5 mmol/L Normal 3.5-5.1 [facility] Comment on above: Performed By: #### B MP, CBC #### [facility] [address] Sodium [Moles/Vol] 136 mmol/L Normal 136-145 [facility] Comment on above: Performed By: #### B MP, CBC #### [facility] [address] Urea nitrogen [Mass/Vol] 15 mg/dL Normal 7-25 [facility] Comment on above: Performed By: #### B MP, CBC #### [facility] [address] Basophils Auto (Bld) [#/Vol] Ordered By: Britton Link on 10-14-2023 Basophils (Bld) [#/Vol] 0.1 10*3/uL 0.0-0.2 [facility] Basophils/100 WBC Auto (Bld) Ordered By: Britton Link on 10-14-2023 Basophils/100 WBC (Bld) 0.7 % . [facility] Calcium [Mass/volume] in Ser um or PlasmaOrdered By: Britton Link on 10-14-2023 Calcium [Mass/Vol] 9.3 mg/dL 8.6-10.3 [facility] Carbon dioxide, total [Moles /volume] in Serum or PlasmaOrdered By: Britton Link on 10-14-2023 CO2 [Moles/Vol] 27.2 mmol/L 21.0-31.0 [facility] Chloride [Moles/volume] in S nadege or PlasmaOrdered By: Britton Link on 10-14-2023 Chloride [Moles/Vol] 103 mmol/L 98-107 [facility] Complete Blood Count Auto Di ffon 10-14-2023 Basophils (Bld) [#/Vol] 0.1 10*3/uL Normal 0.0-0.2 [facility] Comment on above: Result Comment: PERF ORMED BY: [facility] [address] [place] [address] PATHOLOGIST TRUCK WASHER MIGUEL FOLEY M.D. Performed By: #### B MP, CBC #### [facility] [address] [place] [address] [place] Basophils/100 WBC (Bld) 0.7 % Normal . [facility] Comment on above: Performed By: #### B MP, CBC #### [facility] [address] [place] [address] [place] Eosinophils (Bld) [#/Vol] 0.2 10*3/uL Normal 0.0-0.45 [facility] Comment on above: Performed By: #### B MP, CBC #### [facility] [address] Eosinophils/100 WBC (Bld) 1.9 % Normal . [facility] Comment on above: Performed By: #### B MP, CBC #### [address] Erythrocyte distribution width (RBC) [Ratio] 14.9 % Normal 11.9-15.3 [facility] Comment on above: Performed By: #### B MP, CBC #### [address] Hematocrit (Bld) [Volume fraction] 46.4 % Normal 34.0-46.4 [facility] Comment on above: Performed By: #### B MP, CBC #### [address] Hemoglobin (Bld) [Mass/Vol] 15.0 g/dL Normal 11.8-15.4 [facility] Comment on above: Performed By: #### B MP, CBC #### [facility] [address] [place] [address] [place] Lymphocytes (Bld) [#/Vol] 3.7 10*3/uL Normal 1.00-4.8 [facility] Comment on above: Performed By: #### B MP, CBC #### [facility] [address] [place] [address] [place] Lymphocytes/100 WBC (Bld) 32.7 % Normal . [facility] Comment on above: Performed By: #### B MP, CBC #### [facility] [address] MCH (RBC) [Entitic mass] 25.5 pg Normal 24.7-34.3 [facility] Comment on above: Performed By: #### B MP, CBC #### [facility] [address] MCV (RBC) [Entitic vol] 79.1 fL Low 80-100 [facility] Comment on above: Performed By: #### B MP, CBC #### [facility] [address] Mean Corpuscular HGB Conc 32.3 g/dL Normal 32.0-35.0 [facility] Comment on above: Performed By: #### B MP, CBC #### [facility] [address] Monocytes (Bld) [#/Vol] 0.5 10*3/uL Normal 0.0-0.8 [facility] Comment on above: Performed By: #### B MP, CBC #### [facility] [address] [place] [address] [place] Monocytes/100 WBC (Bld) 4.5 % Normal . [facility] Comment on above: Performed By: #### B MP, CBC #### [facility] [address] Neutrophils (Bld) [#/Vol] 6.7 10*3/uL Normal 1.8-7.7 [facility] Comment on above: Performed By: #### B MP, CBC #### [facility] [address] [place] [address] [place] Neutrophils/100 WBC (Bld) 60.2 % Normal . [facility] Comment on above: Performed By: #### B MP, CBC #### [facility] [address] NRBC% 0.1 /100{WBC} Normal 0-0.5 [facility] Comment on above: Performed By: #### B MP, CBC #### [facility] [address] Platelet mean volume (Bld) [Entitic vol] 7.6 fL Normal 6.3-10.7 [facility] Comment on above: Performed By: #### B MP, CBC #### [facility] [address] Platelets (Bld) [#/Vol] 303 10*3/uL Normal 150-450 [facility] Comment on above: Performed By: #### B MP, CBC #### [address] RBC (Bld) [#/Vol] 5.86 10*6/uL High 3.60-5.00 [facility] Comment on above: Performed By: #### B MP, CBC #### [address] WBC (Bld) [#/Vol] 11.2 10*3/uL Normal 3.8-11.6 [facility] Comment on above: Performed By: #### B MP, CBC #### [address] Creatinine [Mass/volume] in Serum or PlasmaOrdered By: Britton Link on 10-14-2023 Creatinine [Mass/Vol] 0.65 mg/dL 0.60-1.20 [facility] ECG 12 lead ECGon 10-14-2023 ECG 12 lead ECG [facility] Main [place] [address] [place] [address] Electrocardiograph Report Signed Patient: Kassi Meng MR#: [id number] 0 : 1960 Acct:[id number] Age/Sex: 63 / F ADM Date: 10/14/23 Loc: Room: Type: [facility] Attending Dr: Britton Link MD Ordering Provider: Britton Link MD Date of Service: 10/14/23 ECG/ECG 12 lead ECG: for surgery 10/28/23 Copies to: Test Reason : Blood Pressure : / mmHG Vent. Rate : 082 BPM Atrial Rate : 082 BPM P-R Int : 182 ms QRS Dur : 074 ms QT Int : 354 ms P-R-T Axes : 053 052 041 degrees QTc Int : 413 ms Normal sinus rhythm Septal infarct , age undetermined Abnormal ECG No previous ECGs available Confirmed by EDITA LUNA DO ([id number]) on 10/14/2023 3:35:35 PM Referred By: NIKOLAY Electronically Signed By:EDITA LUNA DO Transcribed By: MUS Signed By Edita Luna DO 10/14 1535 Normal [facility] Eosinophils Auto (Bld) [#/Vo l]Ordered By: Britton Link on 10-14-2023 Eosinophils (Bld) [#/Vol] 0.2 10*3/uL 0.0-0.45 [facility] Eosinophils/100 WBC Auto (Bl d)Ordered By: Britton Link on 10-14-2023 Eosinophils/100 WBC (Bld) 1.9 % . [facility] Erythrocyte distribution wid th Auto (RBC) [Ratio]Ordered By: Britton Link on 10-14-2023 Erythrocyte distribution width (RBC) [Ratio] 14.9 % 11.9-15.3 [facility] Glucose [Mass/volume] in Ser um or PlasmaOrdered By: Britton Link on 10-14-2023 Glucose [Mass/Vol] 153 mg/dL 70-100 [facility] Comment on above: ADA recommended refe rence rangeRandom Glucose Reference Range is dependent on time and content of last meal. Glucose of more than 200 mg/dL in a nonstressed, ambulatory subject supports the diagnosis of Diabetes Mellitus. Hematocrit Auto (Bld) [Volum e fraction]Ordered By: Britton Link on 10-14-2023 Hematocrit (Bld) [Volume fraction] 46.4 % 34.0-46.4 [facility] Hemoglobin [Mass/volume] in BloodOrdered By: Britton Link on 10-14-2023 Hemoglobin (Bld) [Mass/Vol] 15.0 g/dL 11.8-15.4 [facility] Leukocytes [#/volume] correc mc for nucleated erythrocytes in Blood by Automated counOrdered By: Britton Link on 10-14-2023 WBC corrected for nucl RBC Auto (Bld) [#/Vol] 11.2 10*3/uL 3.8-11.6 [facility] Lymphocytes Auto (Bld) [#/Vo l]Ordered By: Britton Link on 10-14-2023 Lymphocytes (Bld) [#/Vol] 3.7 10*3/uL 1.00-4.8 [facility] Lymphocytes/100 WBC Auto (Bl d)Ordered By: Britton Link on 10-14-2023 Lymphocytes/100 WBC (Bld) 32.7 % . [facility] MCH Auto (RBC) [Entitic mass ]Ordered By: Britton Link on 10-14-2023 MCH (RBC) [Entitic mass] 25.5 pg 24.7-34.3 [facility] MCHC Auto (RBC) [Mass/Vol]Or dered By: Britton Link on 10-14-2023 MCHC (RBC) [Mass/Vol] 32.3 g/dL 32.0-35.0 [facility] MCV Auto (RBC) [Entitic vol] Ordered By: Britton Link on 10-14-2023 MCV (RBC) [Entitic vol] 79.1 fL 80-100 [facility] Monocytes Auto (Bld) [#/Vol] Ordered By: Britton Link on 10-14-2023 Monocytes (Bld) [#/Vol] 0.5 10*3/uL 0.0-0.8 [facility] Monocytes/100 WBC Auto (Bld) Ordered By: Britton Link on 10-14-2023 Monocytes/100 WBC (Bld) 4.5 % . [facility] Neutrophils Auto (Bld) [#/Vo l]Ordered By: Britton Link on 10-14-2023 Neutrophils (Bld) [#/Vol] 6.7 10*3/uL 1.8-7.7 [facility] Neutrophils/100 WBC Auto (Bl d)Ordered By: Britton Link on 10-14-2023 Neutrophils/100 WBC (Bld) 60.2 % . [facility] No Panel InformationOrdered By: Britton Link on 10-14-2023 Estimated GFR (CKD-EPI) > 60.0 mL/Min [facility]acy Creatinine Clearance (Chem N/A [facility] Nucleated erythrocytes [Pres ence] in Blood by Automated countOrdered By: Britton Link on 10-14-2023 Nucleated RBC Auto Ql (Bld) 0.1 /100{WBC} 0-0.5 [facility] Platelet mean volume Auto (B ld) [Entitic vol]Ordered By: Britton Link on 10-14-2023 Platelet mean volume (Bld) [Entitic vol] 7.6 fL 6.3-10.7 [facility] Platelets Auto (Bld) [#/Vol] Ordered By: Britton Link on 10-14-2023 Platelets (Bld) [#/Vol] 303 10*3/uL 150-450 [facility] Potassium [Moles/volume] in Serum or PlasmaOrdered By: Britton Link on 10-14-2023 Potassium [Moles/Vol] 4.5 mmol/L 3.5-5.1 [facility] RBC Auto (Bld) [#/Vol]Ordere d By: Britton Link on 10-14-2023 RBC (Bld) [#/Vol] 5.86 10*6/uL 3.60-5.00 [facility] Serum or plasma anion gap de terminationOrdered By: Britton Link on 10-14-2023 Anion gap [Moles/Vol] 10.3 mmol/L 6.0-15.0 [facility] Sodium [Moles/volume] in Ser um or PlasmaOrdered By: Britton Link on 10-14-2023 Sodium [Moles/Vol] 136 mmol/L 136-145 [facility] Urea nitrogen [Mass/volume] in Serum or PlasmaOrdered By: Britton Link on 10-14-2023 Urea nitrogen [Mass/Vol] 15 mg/dL 7-25 [facility] WBC Auto (Bld) [#/Vol]Ordere d By: Britton Link on 10-14-2023 WBC (Bld) [#/Vol] 11.2 10*3/uL 3.8-11.6 [facility] Outside Colonoscopyon 2022 Outside Colonoscopy [id number] 9A#1.00TIFF [facility] Reminderson 09-24-2023 Reminders -- From: Kimberly Birmingham LPN To: N - Clinical; Sent: 09/24/2023 08:37:43 EST Show up: 08/23/2033 07:00:00 EST Subject: colonoscopy recall Due Date/Time: 09/22/2033 07:00:00 EST Reminder/Recall Patient due for screening colonoscopy 09/22/2033. [facility] Lab Reportson 09-23-2023 Lab Reports [id number] 7B#1.00TIFF [facility] Consultation Noteon 09-15-20 Consultation Note [id number] 53#1.00TIFF [facility] Insurance Correspondenceon 11-06-2022 Insurance Correspondence [id number] 447#1.00TIFF [facility] Consent for Procedure/Surger yon 08-26-2023 Consent for Procedure/Surgery [id number] 6B#1.00TIFF [facility] Ambulatory Visit Summaryon 10-25-2022 Ambulatory Visit Summary KASSI MENG :1960 Visit Date:08/25/2023 Ambulatory Visit Instructions Your Diagnosis Screening for malignant neoplasm of colon BMI 45.0-49.9, adult Your Care Team Attending Physician - AYO SORIANO, Caden Hobbs Primary Care Physician - James SORIANO, Roberto Wallace This Is Your Medications List Contact prescribing physician if questions or concerns atorvastatin (atorvastatin 20 mg Tab) citalopram (citalopram 20 mg Tab) dulaglutide (Trulicity Pen 0.75 mg/0.5 mL subcutaneous solution) empagliflozin (Jardiance 25 mg oral tablet) fluconazole (Diflucan 150 mg Tab) glimepiride (glimepiride 4 mg Tab) iron polysaccharide (ProFe 180 mg oral capsule) lisinopril (lisinopril 40 mg Tab) multivitamin (Multi Vitamin+) umeclidinium (Incruse Ellipta 62.5 mcg inhalation powder) Procedures Performed Bunionectomy, Colonoscopy, Colonoscopy, Colonoscopy, Correction of hammer toe, AMEE BSO - Total abdominal hysterectomy and bilateral salpingo-oophorecto my, Tonsillectomy and adenoidectomy. Discharge Vitals Heart Rate (Peripheral) 64 Respiratory Rate 16 Blood Pressure 120/66 Height 166.5 cm Height 66 in Weight 138 kg Weight 303.6 lb BMI 49.78 What to do next Scheduled Follow-Up Appointments 2023 1:00 PM EST With: Roberto Ramirez MD Where: [facility] Consultation Noteon 08-24-20 Consultation Note [id number] B#1.00TIFF [facility] RAD - MISCon 08-24-2023 [facility] [id number] 8D#1.00TIFF [facility] Ambulatory Visit Summaryon 1 Ambulatory Visit Summary KASSI MENG :1960 Visit Date:08/04/2023 Ambulatory Visit Instructions Your Diagnosis HTN (hypertension) Type 2 diabetes mellitus BMI 45.0-49.9, adult Class 3 obesity Iron deficiency COPD without exacerbation Your Care Team Attending Physician - Roberto Ramirez MD Primary Care Physician - Roberto Ramirez MD This Is Your Medications List atorvastatin (atorvastatin 20 mg Tab) citalopram (citalopram 20 mg Tab) dulaglutide (Trulicity Pen 0.75 mg/0.5 mL subcutaneous solution) empagliflozin (Jardiance 25 mg oral tablet) glimepiride (glimepiride 4 mg Tab) iron polysaccharide (ProFe 180 mg oral capsule) lisinopril (lisinopril 10 mg Tab) multivitamin (Multi Vitamin+) umeclidinium (Incruse Ellipta 62.5 mcg inhalation powder) Procedures Performed Surgery, AMEE BSO - Total abdominal hysterectomy and bilateral salpingo-oophorecto my, Tonsillectomy and adenoidectomy. Discharge Vitals Temperature (Temporal Artery) 36.6 ?C Heart Rate (Peripheral) 74 Respiratory Rate 16 Blood Pressure 156/82 Height 66 in Height 166.5 cm Weight 303.16 lb Weight 137.8 kg BMI 49.71 What to do next Scheduled Follow-Up Appointments 2023 1:00 PM EST With: James SORIANO, Roberto Wallace Where: [facility] Family Medicine Office/Clini c Noteon 08-04-2023 Family Medicine Office/Clinic Note HPI Staff Kassi is a 63 year old female presenting for follow up dm, Htn Do you have any of the following symptoms? Foot Exam: none Eye Exam: UTD Last A1C: 7.5% 07/21/23 Statin: atorvastatin 10mg but she forgets it often Patient is here for follow up on hypertension. How often are you checking your blood pressure? Doesnt check BP at home What are your average readings? N/A, Not checking at home Yearly BMP: 07/08/23 flu: UTD questions/concerns: trulicty not agreeing with her. Dr Max upped the dose and she itches all over and has loose bowels from it. Previously on ozempic and she liked it but insurance won't cover History of Present Illness Here for follow up. - No issues today except with her Trulicity - GI upset and Itching. No rash noted - Wants to change meds - Discussed hydration. Review of Systems PHQ Score Initial Depression Screen Score: 0 Physical Exam Vitals & Measurements T: 36.6 ?C(Temporal Artery) HR: 74(Peripheral) RR: 16 BP: 156/82 SpO2: 96% HT: 66 in HT: 166.5 cm WT: 137.8 kg WT: 303.16 lb BMI: 49.71 General: alert, no acute distress ENMT: oral mucosa moist, Cardiovascular: regular rate and rhythm, normal peripheral perfusion Respiratory: Lungs CTA, respirations non labored Extremities: no deformity, no trauma Neurological: oriented x 4, LOC appropriate for age, CN II-XII intact, motor strength equal & normal bilaterally, speech normal Abdomen: Soft, Nontender, Non-distended, + BS Assessment/Plan 1. HTN (hypertension) (I10: Essential (primary) hypertension) - Elevated today. - Will increase meds - Will recheck. Ordered: Body Mass Index (BMI) documented 3008F Current tobacco non-user 1036F Depression Screening Negative 3352F Influenza immunization administered or previously received 4274F Most recent diastolic blood pressure 80-89 mm Hg 3079F Most recent systolic blood pressure >= 140 mm Hg 3077F 2. Type 2 diabetes mellitus (E11.9: Type 2 diabetes mellitus without complications) - Not controlled at this time. - Seeing Endo - May need to switch to Ozempic given Ordered: Body Mass Index (BMI) documented 3008F Current tobacco non-user 1036F Depression Screening Negative 3352F Influenza immunization administered or previously received 4274F Most recent diastolic blood pressure 80-89 mm Hg 3079F Most recent systolic blood pressure >= 140 mm Hg 3077F 3. BMI 45.0-49.9, adult (Z68.42: Body mass index [BMI] 45.0-49.9, adult) - BMI education given. Ordered: Body Mass Index (BMI) documented 3008F Current tobacco non-user 1036F Depression Screening Negative 3352F Influenza immunization administered or previously received 4274F Most recent diastolic blood pressure 80-89 mm Hg 3079F Most recent systolic blood pressure >= 140 mm Hg 3077F 4. Class 3 obesity (E66.01: Morbid (severe) obesity due to excess calories) - Diet and exercise advised. Ordered: Body Mass Index (BMI) documented 3008F Current tobacco non-user 1036F Depression Screening Negative 3352F Influenza immunization administered or previously received 4274F Most recent diastolic blood pressure 80-89 mm Hg 3079F Most recent systolic blood pressure >= 140 mm Hg 3077F 5. Iron deficiency (E61.1: Iron deficiency) - Continue Iron Supplement - Will recheck in 3 months. 6. COPD without exacerbation (J44.9: Chronic obstructive pulmonary disease, unspecified) - Stable. - Continue on meds. Orders: lisinopril, 40 mg = 1 tab(s), Oral, Daily, # 90 tab(s), Refills(s) 0, Pharmacy: [id number], 166.5, cm, 08/04/23 8:45:00 EDT, Height/Length Dosing, 137.8, kg, 08/04/23 8:45:00 EDT, Weight Dosing Follow-up No qualifying data available Problem List/Past Medical History Ongoing COPD without exacerbation Former smoker Hip pain, right HTN (hypertension) Iron deficiency Screening for colorectal cancer Skin tag Type 2 diabetes mellitus Vaginal yeast infection Historical No qualifying data Procedure/Surgical History Surgery, AMEE BSO - Total abdominal hysterectomy and bilateral salpingo-oophorecto my, Tonsillectomy and adenoidectomy. Medications atorvastatin 20 mg Tab citalopram 20 mg Tab glimepiride 4 mg Tab, BID Incruse Ellipta 62.5 mcg inhalation powder Jardiance 25 mg oral tablet lisinopril 40 mg Tab, 40 mg= 1 tab(s), Oral, Daily Multi Vitamin+, See Instructions ProFe 180 mg oral capsule, 180 mg= 1 cap(s), Oral, Daily, 3 refills Trulicity Pen 0.75 mg/0.5 mL subcutaneous solution Allergies No Known Allergies Social History Substance Abuse Current, Marijuana, IV drug use: No. Drug use interferes with work/home: No. Ready to change: No. Household substance abuse concerns: No., 07/08/2023 Tobacco Never (less than 100 in lifetime) Tobacco Use:. Never Smokeless Tobacco Use:. Household tobacco concerns: No., 08/04/2023 Family History Family history is negative Immunizations Vaccine Date Status influenza virus vaccine, [facility] (more content not included)... Normal [facility] Comment on above: Result Comment: Elec tronically Signed By: James SORIANO, Roberto Wallace\.br\Date and Time Signed: 08/04/23 09:26 EDT PAP [id number] 07-27-2023 Cytology report Cyto stain Doc (Cvx/Vag) Note Invalid Interpretation Code [facility] Comment on above: Result Comment: TEST S RESULT FLAG UNITS REF RANGE LAB Clinician Provided Cytology Information Source.............Vagina No. of containers..01 ThinPrep Vial DIAGNOSIS: 01 NEGATIVE FOR INTRAEPITHELIAL LESION OR MALIGNANCY. FUNGAL ORGANISMS MORPHOLOGICALLY CONSISTENT WITH HARRY SPECIES ARE PRESENT. Specimen adequacy: 01 Satisfactory for evaluation. Performed by: 01 Christy Aly, Refueler ([facility]) . 01 Note: Note 01 The Pap smear is a screening test designed to aid in the detection of premalignant and malignant conditions of the uterine cervix. It is not a diagnostic procedure and should not be used as the sole means of detecting cervical cancer. Both false-positive and false-negative reports do occur. Test Methodology: Note 01 This liquid based ThinPrep(R) pap test was screened with the use of an image guided system. HPV Genotype Reflex Note 01 Criteria not met, HPV Genotype not performed. FLAG LEGEND: L-Low Normal,H-High Normal,LL-Alert Low,HH-Alert High <-Panic Low,>-Panic High,A-Abnormal,AA-Critical Abnormal Performed at: [address] [address] Pricila Recinos MD, Performed By: #### 1 [id number] ####[address] [place] [address] HPV 16+18+31+33+35+39+45+51 +52+56+58+59+66+68 DNA Probe+sig amp Ql (Cvx) Negative Invalid Interpretation Code Negative [facility] Comment on above: Result Comment: This nucleic acid amplification test detects fourteen high-risk HPV types (16,18,31,33,35,39,45,51,52,56,58,59,66,68) without differentiation. Performed at: [facility] [address] [facility] [address] [place], [place] [id number] MD Jorje Mcnulty Performed at: =G [facility] [address] [place], [place] [id number] MD Jorje Mcnulty Performed By: #### 1 [id number] ####[facility] [address] [place] [address] Consultation Noteon 07-26-20 Consultation Note [id number] 2E#1.00TIFF Normal [facility] Family Medicine Office/Clini c Noteon 07-22-2023 Family Medicine Office/Clinic Note HPI Staff Kassi is a 63 year old female presenting for well woman Woman check up: Last pap: 2011 Results of lap pap: normal Where was it done: Dr Ocampo hx: # of pregnancies..2. abortions... live births..2. living children...2 menstrual cycle (normal,heavy,ect): none History of STD: no Do you want tested for STD today: no Vaginal discharge, odor, itching: no Self breast exam at home? yes Hx of breast, cervical or uterine cancer in the family: no pt would like to discuss any medication for hair growing on chin History of Present Illness pt presents today for well woman exam. pt had hysterectomy in 1988 Review of Systems PHQ Score Initial Depression Screen Score: 0 Constitutional: No fever, No chills, No sweats, No weakness. No Weight change; No fatigue. Skin: No rash, No lesions. ENMT: No ear pain, No sore throat, No congestion. Respiratory: No shortness of breath, No cough, No orthopnea, No wheezing. Cardiovascular: No chest pain, No palpitations, No peripheral edema. Gastrointestinal: No nausea, No vomiting, No diarrhea, No GI bleeding. Genitourinary: No dysuria, No hematuria, No discharge, No pain. Gynecology: No abnormal vaginal discharge, No vaginal itching/burning, No vaginal dryness, No painful periods, No abnormal bleeding, No pelvic pain, No painful intercourse, No hair loss/growth, No hot flashes Breast: No breast pain, No skin changes, No masses/lumps, No nipple discharge. Musculoskeletal: No back pain, No trauma. Neurological: No headache, No dizziness, No numbness, No weakness. Psychiatric: No sleeping problems, No irritability, No mood swings/depression. Heme/Lymph: No bleeding tendency, No bruising tendency, No petechiae, No swollen. Physical Exam Vitals & Measurements HR: 80(Peripheral) RR: 18 BP: 138/80 SpO2: 95% HT: 66 in HT: 166.5 cm WT: 137.3 kg WT: 302.06 lb BMI: 49.53 General: Well developed, well nourished, in no acute distress Neck: Neck supple. No masses or palpable cervical nodes. Trachea midline. Thyroid without nodules, masses, tenderness, or enlargement Breast: No mass, nodule, discharge, or erythema bilaterally, and no axillary lymphadenopathy Lungs: Normal respiratory effort and clear to auscultation Cardio: Regular rate and rhythm, normal S1 and S2, no murmur, no rub Abdomen: Soft, non-distended, non-tender, normal bowel sounds x4 Gyno: normal external genitalia. Urethra no discharge. Vagina normal without lesions, thich white vaginal discharge. Hysterectomy Neurologic: Grossly normal Skin: [place], moist, no tenting Lymph Nodes: No cervical adenopathy, nodes normal Mental Status: Alert and oriented x3. Normal mood and affect Assessment/Plan 1. Well woman exam (Z01.419: Encounter for gynecological examination (general) (routine) without abnormal findings) pt presents today for well woman exam. had hysterectomy many years ago. pap obtained without difficulty. large amount of thick white vaginal discharge noted on exam. will send in Diflucan. BSE discussed. pt had mammogram last month at [facility] that was negative. all questions answered. RTC as needed 2. Cervical cancer screening (Z12.4: Encounter for screening for malignant neoplasm of cervix) cells obtained from vaginal wall Ordered: PAP w/ HPV and Genotype rflx 3. Vaginal yeast infection (B37.31: Acute candidiasis of vulva and vagina) Diflucan sent to pharmacy 4. BMI 45.0-49.9, adult (Z68.42: Body mass index [BMI] 45.0-49.9, adult) BMI education complete Ordered: PAP w/ HPV and Genotype rflx 5. Non-smoker (Z78.9: Other specified health status) continue not smoking Ordered: PAP w/ HPV and Genotype rflx Follow-up No qualifying data available Problem List/Past Medical History Ongoing Cervical cancer screening COPD without exacerbation Former smoker Hip pain, right HTN (hypertension) Iron deficiency Screening for colorectal cancer Skin tag Type 2 diabetes mellitus Vaginal yeast infection Well woman exam Historical No qualifying data Procedure/Surgical History Surgery, AMEE BSO - Total abdominal hysterectomy and bilateral salpingo-oophorecto my, Tonsillectomy and adenoidectomy. Medications atorvastatin 20 mg Tab citalopram 20 mg Tab glimepiride 4 mg Tab, BID Incruse Ellipta 62.5 mcg inhalation powder Jardiance 25 mg oral tablet lisinopril 10 mg Tab Multi Vitamin+, See Instructions ProFe 180 mg oral capsule, 180 mg= 1 cap(s), Oral, Daily, 3 refills Trulicity Pen 0.75 mg/0.5 mL subcutaneous solution Allergies No Known Allergies Social History Substance Abuse Current, Marijuana, IV drug use: No. Drug use interferes with work/home: No. Ready to change: No. Household substance abuse concerns: No., 07/08/2023 Tobacco Never (less than 100 in lifetime) Tobacco Use:. Never Smokeless Tobacco Use:. Household tobacco concerns: No., 07/22/2023 Immunizations Vaccine Date Status influenza virus va (more content not included)... Normal [facility] Comment on above: Result Comment: Elec tronically Signed By: Ginny Woods\.br\Date and Time Signed: 07/22/23 09:56 EDT PAP [id number] 07-22-2023 Gynecological Body Site VAGINA Normal [facility] Comment on above: Performed By: #### 1 [id number] ####[facility] [address] [place] [address] Pre-Certification Formon Pre-Certification Form [id number] E#1.00CD:127 Normal [facility] Lab Reportson 07-12-2023 Lab Reports [id number] B#1.00CD:127 Normal [facility] Ambulatory Visit Summaryon 0 07-08-2023 Ambulatory Visit Summary KASSI MENG :1960 Visit Date:07/08/2023 Ambulatory Visit Instructions Your Diagnosis HTN (hypertension) Type 2 diabetes mellitus COPD without exacerbation Anemia of unknown etiology Non-smoker Skin tag Hip pain, right Screening for colorectal cancer BMI 45.0-49.9, adult Former smoker Encounter for screening for malignant neoplasm of rectum Your Care Team Attending Physician - Roberto Ramirez MD Primary Care Physician - Roberto Ramirez MD This Is Your Medications List semaglutide (Ozempic 2 mg/3 mL (0.25 mg or 0.5 mg dose) subcutaneous solution) Contact prescribing physician if questions or concerns atorvastatin (atorvastatin 20 mg Tab) citalopram (citalopram 20 mg Tab) dulaglutide (Trulicity Pen 0.75 mg/0.5 mL subcutaneous solution) empagliflozin (Jardiance 25 mg oral tablet) glimepiride (glimepiride 4 mg Tab) lisinopril (lisinopril 10 mg Tab) multivitamin (Multi Vitamin+) umeclidinium (Incruse Ellipta 62.5 mcg inhalation powder) Procedures Performed Surgery, AMEE BSO - Total abdominal hysterectomy and bilateral salpingo-oophorecto my, Tonsillectomy and adenoidectomy. Discharge Vitals Heart Rate (Peripheral) 74 Respiratory Rate 18 Blood Pressure 128/68 Height 166.5 cm Height 66 in Weight 136.7 kg Weight 300.74 lb BMI 49.31 What to do next Scheduled Follow-Up Appointments 2022 9:20 AM EDT With: Ginny Woods Where: [facility] Normal [address] [place] [address]- \.br\ Someone Will Contact You Regarding These Appointments\.b r\ [facility] [place] External Ambulatory Referral, Dermatology, 07/08/23 8:48:00 EDT, Skin tag\.br\ Medications\.br \ What How Much When Instructions\.b r\ New semaglutide (Ozempic 2 mg/ 3 mL (0.25 mg or 0.5 mg dose) subcutaneous solution) 0.25 Milligram Subcutaneous Every week Pickup at [facility] #[id number]\.br\ Unchanged atorvastatin (atorvastatin 20 mg Tab) 20 Unknown, oral, 1 Refill(s), Take 1 tablet (20 mg total) by mouth in the morning. Contact prescribing physician if questions or concerns \.br\ Unchanged citalopram (citalopram 20 mg Tab) 90 EA, take 1 tablet by mouth once daily Contact prescribing physician if questions or concerns \.br\ Unchanged dulaglutide (Trulicity Pen 0.75 mg/ 0.5 mL subcutaneous solution) 2 mL, INJECT 0.75 MG UNDER THE SKIN ONCE WEEKLY FOR 4 WEEKS THEN INJECT 1.5 MG ONCE WEEKLY THEREAFTER Contact prescribing physician if questions or concerns \.br\ Unchanged empagliflozin (Jardiance 25 mg oral tablet) 25 Unknown, oral, 1 Refill(s), Take 1 tablet (25 mg total) by mouth in the morning. Contact prescribing physician if questions or concerns \.br\ Unchanged glimepiride (glimepiride 4 mg Tab) 2 times a day 4 Unknown, oral, 1 Refill(s), Take 1 tablet (4 mg total) by mouth in the morning and 1 tablet (4 mg total) before bedtime. Contact prescribing physician if questions or concerns \.br\ Unchanged lisinopril (lisinopril 10 mg Tab) 10 Unknown, oral, 1 Refill(s), Take 1 tablet (10 mg total) by mouth in the morning. Contact prescribing physician if questions or concerns \.br\ Unchanged multivitamin (Multi Vitamin+) See instructions one tab daily Contact prescribing physician if questions or concerns \.br\ Unchanged umeclidinium (Incruse Ellipta 62.5 mcg inhalation powder) 1 Unknown, 1 Refill(s), 1 puff in the morning. Contact prescribing physician if questions or concerns \.br\ Pharmacy Information\.br \ [facility] #[id number]: [address], [place] [id number] [phone]\.br\ Allergies\.br\ No active allergies\.br\ Problems\.br\ Ongoing - Any problem that you are currently receiving treatment for.\.br\ Anemia of unknown etiology\.br\ COPD without exacerbation\.b r\ Former smoker\.br\ Hip pain, right\.br\ HTN (hypertension)\ .br\ Screening for colorectal cancer\.br\ Skin tag\.br\ Type 2 diabetes mellitus\.br\ \.br\ [facility] Auto Diffon 07-08-2023 Basophils/100 WBC (Bld) 0.6 % Normal 0.0-2.0 [facility] Comment on above: Order Comment: Order Added by Discern Expert. Performed By: #### 2 [id number], [id number], [id number], [id number] ####[facility] [address] [place] [address] Basophils/Leukocytes Auto (Bld) [Pure # fraction] 0.1 E9/L Normal 0.0-0.2 [facility] Comment on above: Order Comment: Order Added by Discern Expert. Performed By: #### 2 [id number], [id number], [id number], [id number] ####[address] [address] Eosinophils/100 WBC (Bld) 3.2 % Normal 0.0-8.0 [facility] Comment on above: Order Comment: Order Added by Discern Expert. Performed By: #### 2 409250, [id number], 8812120, 5011251 ####[address] [place] [address] Eosinophils/Leukocytes Auto (Bld) [Pure # fraction] 0.3 E9/L Normal 0.0-0.5 [facility] Comment on above: Order Comment: Order Added by Discern Expert. Performed By: #### 2 098861, [id number], 2235614, 2236160 ####[address] [place] [address] Lymphocytes/100 WBC (Bld) 44.4 % Normal 14.0-50.0 [facility] Comment on above: Order Comment: Order Added by Discern Expert. Performed By: #### 2 946359, [id number], 1799207, 3905868 ####[facility] [address] [place] [address] Lymphocytes/Leukocytes Auto (Bld) [Pure # fraction] 4.0 E9/L Normal 1.0-4.0 [facility] Comment on above: Order Comment: Order Added by Discern Expert. Performed By: #### 2 179846, 83692382, 6615497, 9261028 ####[address] [place] [address] Monocytes/100 WBC (Bld) 6.0 % Normal 4.0-14.0 [facility] Comment on above: Order Comment: Order Added by Discern Expert. Performed By: #### 2 398002, [id number], 3590412, 7510013 ####[address] [place] [address] Monocytes/Leukocytes Auto (Bld) [Pure # fraction] 0.5 E9/L Normal 0.2-1.0 [facility] Comment on above: Order Comment: Order Added by Discern Expert. Performed By: #### 2 280739, [id number], 8431590, 9860426 ####[address] [address] Neutrophils/100 WBC (Bld) 45.8 % Normal 36.0-75.0 [facility] Comment on above: Order Comment: Order Added by Discern Expert. Performed By: #### 2 555375, 74466607, 9150649, 9435198 ####[address] [address] Neutrophils/Leukocytes Auto (Bld) [Pure # fraction] 4.2 E9/L Normal 2.0-7.5 [facility] Comment on above: Order Comment: Order Added by Discern Expert. Performed By: #### 2 753984, [id number], 1027236, 9323518 ####[address] [place] [address] CBC w/ Auto Diffon 3 Erythrocyte distribution width (RBC) [Ratio] 15.6 % High 10.9-14.2 [facility] Comment on above: Performed By: #### 2 845838, [id number], 1606001, 3917237 ####[facility] [address] [place] [address] Hematocrit (Bld) [Volume fraction] 47.2 % High 34.0-46.0 [facility] Comment on above: Performed By: #### 2 176423, [id number], 5327994, 0951112 ####[facility] [id number] Hemoglobin (Bld) [Mass/Vol] 15.2 g/dL Normal 12.0-16.0 [facility] Comment on above: Performed By: #### 2 111105, 33046931, 2581282, 1276246 ####[address] MCH (RBC) [Entitic mass] 25.6 pg Low 27.0-34.0 [facility] Comment on above: Performed By: #### 2 475392, 65898024, 8241330, 3489316 ####[address] [address] MCHC (RBC) [Mass/Vol] 32.1 g/dL Normal 31.4-36.0 [facility] Comment on above: Performed By: #### 2 030017, [id number], 8362238, 6329255 ####[address] [address] MCV (RBC) [Entitic vol] 79.8 fL Low 80.0-100.0 [facility] Comment on above: Performed By: #### 2 785187, 44255150, 0217649, 9828069 ####[address] [address] Platelet mean volume (Bld) [Entitic vol] 8.1 fL Normal 6.4-10.8 [facility] Comment on above: Performed By: #### 2 637356, 20834722, 5051645, 0842573 ####[address] [place] [address] Platelets (Bld) [#/Vol] 297.0 E9/L Normal 150.0-500.0 [facility] Comment on above: Performed By: #### 2 304611, 12660573, 8587916, 4891929 ####[facility] [address] [place] [address] RBC (Bld) [#/Vol] 5.9 E12/L Normal 4.3-5.9 [facility] Comment on above: Performed By: #### 2 443157, 21567387, 9387320, 6753989 ####[facility] [address] [place] [address] WBC corrected for nucl RBC Auto (Bld) [#/Vol] 9.1 E9/L Normal 4.0-11.0 [facility] Comment on above: Performed By: #### 2 618291, 00223099, 8848352, 9001551 ####[facility] [address] [place] [address] CHEMISTRYOrdered By: SYSTEM SYSTEM on 07-08-2023 Albumin [Mass/Vol] 4.1 g/dL Normal 3.3 - 5.0 gm/dL [facility] Albumin/Globulin [Mass ratio] 1.1 {ratio} Normal 1.1 - 2.2 [facility] Rem[facility] ALP [Catalytic activity/Vol] 79 [iU]/d Normal 21 - 98 Int._Unit/L [facility] Remisol ALT No additional P-5'-P [Catalytic activity/Vol] 29 [iU]/d Normal 6 - 46 Int._Unit/L [facility] Anion gap [Moles/Vol] 15 mmol/L Normal 6 - 16 mEq/L [facility] Remisol AST [Catalytic activity/Vol] 24 [iU]/d Normal 5 - 43 Int._Unit/L [facility] Bilirubin [Mass/Vol] 0.2 mg/dL Normal 0.0 - 1.1 mg/dL [facility] Calcium [Mass/Vol] 9.1 mg/dL Normal 8.9 - 11. 1 mg/dL [facility] Chloride [Moles/Vol] 102 mmol/L Normal 101 - 1 11 mmol/L [facility] CO2 [Moles/Vol] 23 mmol/L Normal 21 - 31 mmol/L [facility] Creatinine [Mass/Vol] 0.7 mg/dL Normal 0.5 - 1.3 mg/d L [facility] [place] Remisol GFR/1.73 sq M.predicted among non-blacks MDRD (S/P/Bld) [Vol rate/Area] 98 mL/min/1.73 m2 Normal >=59mL/min/1.73 m2 [facility] [place] Chem S Globulin (S) [Mass/Vol] 3.6 g/dL Normal 1.4 - 4.0 gm /dL FT Remisol Glucose [Mass/Vol] 138 mg/dL Normal 55 - 199 mg/dL [facility] Remisol Potassium [Moles/Vol] 4.4 mmol/L Normal 3.5 - 5.3 mmol/L [facility] [place] Remisol Protein [Mass/Vol] 7.7 g/dL Normal 6.0 - 7.8 gm/dL [facility] [place] Remisol Sodium [Moles/Vol] 136 mmol/L Normal 135 - 145 mmol/L [facility] [place] Remisol Urea nitrogen [Mass/Vol] 15 mg/dL Normal 5 - 21 mg/dL [facility] [place] Remisol Urea nitrogen/Creatinine [Mass ratio] 21 mg/mg High 10 - 20 [facility] [place] Remisol CMPon 07-08-2023 Albumin [Mass/Vol] 4.1 g/dL Normal 3.3-5.0 [facility] Comment on above: Performed By: #### 2 [id number], [id number], [id number], [id number] ####[facility] [address] [place] [address] Albumin/Globulin (S) [Mass conc ratio] 1.1 Normal 1.1-2.2 [facility] Comment on above: Performed By: #### 2 [id number], [id number], [id number], [id number] ####[facility] [address] [place] [address] ALP [Catalytic activity/Vol] 79 Int._Unit/L Normal 21-98 [facility] Comment on above: Performed By: #### 2 544025, [id number], [id number], 6388192 ####[facility] [address] [place] [address] ALT No additional P-5'-P [Catalytic activity/Vol] 29 Int._Unit/L Normal 6-46 [facility] Comment on above: Performed By: #### 2 591477, [id number], 2845927, 9117058 ####[facility] [address] [place] [address] Anion gap [Moles/Vol] 15 mmol/L Normal 6-16 [facility] Comment on above: Performed By: #### 2 018921, [id number], 4242424, 4833223 ####[address] [place] [address] AST [Catalytic activity/Vol] 24 Int._Unit/L Normal 5-43 [facility] Comment on above: Performed By: #### 2 703418, [id number], 6582856, 7833408 ####[facility] [address] [place] [address] Bilirubin [Mass/Vol] 0.2 mg/dL Normal 0.0-1.1 [facility] Comment on above: Performed By: #### 2 329225, [id number], 7546621, 4854825 ####[facility] [address] [place] [address] Calcium [Mass/Vol] 9.1 mg/dL Normal 8.9-11.1 [facility] Comment on above: Performed By: #### 2 606847, [id number], 1511209, 1508347 ####[facility] [address] [place] [address] Chloride [Moles/Vol] 102 mmol/L Normal 101-111 [facility] Comment on above: Performed By: #### 2 961982, [id number], 8469681, 1747302 ####[facility] [address] [place] [address] CO2 [Moles/Vol] 23 mmol/L Normal 21-31 [facility] Comment on above: Performed By: #### 2 467768, 38657773, 8771301, 6734104 ####[facility] [address] [place] [address] Creatinine [Mass/Vol] 0.7 mg/dL Normal 0.5-1.3 [facility] Comment on above: Performed By: #### 2 170123, [id number], 6059739, 8950852 ####[facility] [address] [place] [address] Globulin (S) [Mass/Vol] 3.6 g/dL Normal 1.4-4.0 [facility] Comment on above: Performed By: #### 2 378682, [id number], 0563474, 5481038 ####[facility] [address] [place] [address] Glucose [Mass/Vol] 138 mg/dL Normal 55-199 [facility] Comment on above: Result Comment: If t his glucose result represents a fasting glucose, interpretation should refer to the following reference range: 55-99 mg/dL Performed By: #### 2 032068, [id number], 7320672, 8250887 ####[facility] [address] [place] [address] Potassium [Moles/Vol] 4.4 mmol/L Normal 3.5-5.3 [facility] Comment on above: Performed By: #### 2 696370, 71439095, 9774396, 8843516 ####[facility] [address] [place] [address] Protein [Mass/Vol] 7.7 g/dL Normal 6.0-7.8 [facility] Comment on above: Performed By: #### 2 596832, 78276772, 0552077, 5252867 ####[facility] [address] [place] [address] Sodium [Moles/Vol] 136 mmol/L Normal 135-145 [facility] Comment on above: Performed By: #### 2 858340, 74642526, 3458183, 0025305 ####[facility] [address] [place] [address] Urea nitrogen [Mass/Vol] 15 mg/dL Normal 5-21 [facility] Comment on above: Performed By: #### 2 233145, 38821923, 6340986, 6466313 ####[facility] [address] [place] [address] Urea nitrogen/Creatinine [Mass ratio] 21 No Units High 10-20 [facility] Comment on above: Performed By: #### 2 379700, 18104279, 2489679, 7414673 ####[facility] [address] [place] [address] Family Medicine Office/Clini c Noteon 07-08-2023 Family Medicine Office/Clinic Note HPI Staff Kassi is a 63 year old female presenting to establish care Establish Care: History: htn,DM, copd, anemia Any previous diagnosis: History of seeing any specialist(s): no When was your last doctor visit: Last provider: Dr Gilliland Any recent labs: yes, [facility] within the last year(labs requested from [facility]) Health Maintenence UTD: Colonoscopy:6 years ago, Family Hx colon cancer mom and both uncles of colon cancer Mammogram: 1 month ago, normal Pelvic/pap: 10 years ago normal covid: UTD flu: UTD 06/24/23 Acute: Current issues/complaints: pt wants to discuss losing weight she states she was denied a colonoscopy due to BMI pt has skin tags would like referral to derm no refills needed at this time History of Present Illness - Here to establish - Former patient of [facility] - See staff HPI Review of Systems PHQ Score Initial Depression Screen Score: 0 Physical Exam Vitals & Measurements HR: 74(Peripheral) RR: 18 BP: 128/68 SpO2: 98% HT: 66 in HT: 166.5 cm WT: 136.7 kg WT: 300.74 lb BMI: 49.31 General: alert, no acute distress, Morbidly Obese ENMT: oral mucosa moist, Cardiovascular: regular rate and rhythm, normal peripheral perfusion Respiratory: Lungs CTA, respirations non labored Extremities: no deformity, no trauma Neurological: oriented x 4, LOC appropriate for age, CN II-XII intact, motor strength equal & normal bilaterally, speech normal Abdomen: Soft, Nontender, Non-distended, + BS Irritated skin tags noted Assessment/Plan 1. HTN (hypertension) (I10: Essential (primary) hypertension) - Controlled - Continue meds as before Ordered: CBC w/ Auto Diff Cologuard Screening Test Comprehensive Metabolic Panel [facility] [place] Internal Ambulatory Referral 2. Type 2 diabetes mellitus (E11.9: Type 2 diabetes mellitus without complications) - Not controlled. - Cannot take metformin - Trulicity wylie - Would like ozempic Ordered: CBC w/ Auto Diff Cologuard Screening Test Comprehensive Metabolic Panel [facility] [place] Internal Ambulatory Referral 3. COPD without exacerbation (J44.9: Chronic obstructive pulmonary disease, unspecified) - Continue with meds as before Ordered: CBC w/ Auto Diff Cologuard Screening Test Comprehensive Metabolic Panel [facility] [place] Internal Ambulatory Referral 4. Anemia of unknown etiology (D64.9: Anemia, unspecified) - Will check labs today Ordered: CBC w/ Auto Diff Cologuard Screening Test Comprehensive Metabolic Panel [facility] [place] Internal Ambulatory Referral 5. Non-smoker (Z78.9: Other specified health status) - Please continue not to smoke Ordered: CBC w/ Auto Diff Cologuard Screening Test Comprehensive Metabolic Panel [facility] [place] Internal Ambulatory Referral 6. Skin tag (L91.8: Other hypertrophic disorders of the skin) - Will send to Derm Ordered: CBC w/ Auto Diff Comprehensive Metabolic Panel [facility] [place] External Ambulatory Referral 7. Hip pain, right (M25.551: Pain in right hip) - Diet and exercise advised Ordered: CBC w/ Auto Diff Comprehensive Metabolic Panel 8. Screening for colorectal cancer (Z12.11: Encounter for screening for malignant neoplasm of colon) - Will order Cologuard - Will send for colonoscopy with our group to see if they will take her with an elevated BMI Ordered: CBC w/ Auto Diff Comprehensive Metabolic Panel 9. BMI 45.0-49.9, adult (Z68.42: Body mass index [BMI] 45.0-49.9, adult) - As above Ordered: CBC w/ Auto Diff Comprehensive Metabolic Panel 10. Former smoker (Z87.891: Personal history of nicotine dependence) - Encouraged that the patient has stopped smoking Ordered: CBC w/ Auto Diff Comprehensive Metabolic Panel Encounter for screening for malignant neoplasm of rectum (Z12.12: Encounter for screening for malignant neoplasm of rectum) - As above Orders: semaglutide, 0.25 mg, SubCutaneous, qWeek, # 1 EA, Refills(s) 0, Pharmacy: [id number], 166.5, cm, 07/08/23 8:19:00 EDT, Height/Length Dosing, 136.7, kg, 07/08/23 8:19:00 EDT, Weight Dosing Follow-up No qualifying data available Problem List/Past Medical History Ongoing Anemia of unknown etiology COPD without exacerbation Former smoker Hip pain, right HTN (hypertension) Screening for colorectal cancer Skin tag Type 2 diabetes mellitus Historical No qualifying data Procedure/Surgical History Surgery, AMEE BSO - Total abdominal hysterectomy and bilateral salpingo-oophorecto my, Tonsillectomy and adenoidectomy. Medications atorvastatin 20 mg Tab citalopram 20 mg Tab glimepiride 4 mg Tab, BID Incruse Ellipta 62.5 mcg inhalation powder Jardiance 25 mg oral tablet lisinopril 10 mg Tab Multi Vitamin+, See Instructions Ozempic 2 mg/3 mL (0.25 mg or 0.5 mg dose) subcutaneous solution, 0.25 mg, SubCutaneous, qWeek Trulicity Pen 0.75 mg/0.5 mL subcutaneous solution Allergies No active allergies Social History Substance Abuse Current, Marijuana, IV drug use: No. Drug use interferes (more content not included)... Normal [facility] Comment on above: Result Comment: Elec tronically Signed By: James SORIANO, Roberto Chinchilla.br\Date and Time Signed: 07/08/23 08:51 EDT Formson 07-08-2023 Forms [id number] 4#1.00CD:127 Normal [facility] HEMATOLOGYOrdered By: SYSTEM SYSTEM on 07-08-2023 Basophils/100 WBC (Bld) 0.6 % Normal 0.0 - 2.0 % [facility] Basophils/Leukocytes Auto (Bld) [Pure # fraction] 0.1 E9/L Normal 0.0 - 0.2 E9/L [facility] Eosinophils/100 WBC (Bld) 3.2 % Normal 0.0 - 8.0 % [facility] Eosinophils/Leukocytes Auto (Bld) [Pure # fraction] 0.3 E9/L Normal 0.0 - 0.5 E9/L [facility] Lymphocytes/100 WBC (Bld) 44.4 % Normal 14.0 - 50.0 % [facility] Lymphocytes/Leukocytes Auto (Bld) [Pure # fraction] 4.0 E9/L Normal 1.0 - 4.0 E9/L [facility] Monocytes/100 WBC (Bld) 6.0 % Normal 4.0 - 14.0 % [facility] Monocytes/Leukocytes Auto (Bld) [Pure # fraction] 0.5 E9/L Normal 0.2 - 1.0 E9/L [facility] Neutrophils/100 WBC (Bld) 45.8 % Normal 36.0 - 75.0 % [facility] Neutrophils/Leukocytes Auto (Bld) [Pure # fraction] 4.2 E9/L Normal 2.0 - 7.5 E9/L [facility] HEMATOLOGYOrdered By: Elle Pittman on 07-08-2023 Erythrocyte distribution width (RBC) [Ratio] 15.6 % High 10.9 - 14.2 % [facility] Hematocrit (Bld) [Volume fraction] 47.2 % High 34.0 - 46.0 % [facility] Hemoglobin (Bld) [Mass/Vol] 15.2 g/dL Normal 12.0 - 16.0 gm/dL [facility] MCH (RBC) [Entitic mass] 25.6 pg Low 27.0 - 34.0 pg [facility] MCHC (RBC) [Mass/Vol] 32.1 g/dL Normal 31.4 - 36.0 gm/dL [facility] MCV (RBC) [Entitic vol] 79.8 fL Low 80.0 - 100.0 fL [facility] Platelet mean volume (Bld) [Entitic vol] 8.1 fL Normal 6.4 - 10.8 fL [facility] Platelets (Bld) [#/Vol] 297.0 E9/L Normal 150. 0 - 500.0 E9/L [facility] RBC (Bld) [#/Vol] 5.9 E12/L Normal 4.3 - 5.9 E12/L [facility] HemeAutoSS WBC corrected for nucl RBC Auto (Bld) [#/Vol] 9.1 E9/L Normal 4.0 - 11.0 E9/L [facility] [place] [facility] HemeAutoSS Physician Referralon 023 Physician Referral [id number] 636#1.00CD:127 Normal [facility] eGFRon 07-08-2023 GFR/1.73 sq M.predicted among non-blacks MDRD (S/P/Bld) [Vol rate/Area] 98 mL/min/1.73 m2 Normal >=59 [facility] Comment on above: Order Comment: Order added by Discern Expert. Result Comment: Work Manager rivera kidney disease could be indicated at eGFR's of less than 60 mL/min/1.73m2. Kidney failure is indicated at less than 15 mL/min/1.73m2. Performed By: #### 2 [id number], [id number], [id number], [id number] ####[facility] [address] [place] [address] LIPID PROFILEon 12-22-2022 CHOL-HDL RATIO NORM SEE BELOW Normal [facility] Comment on above: Result Comment: 3.3 - 4.4 LOW RISK 4.4 - 7.1 AVERAGE RISK 7.1 - 11.0 MODERATE RISK >11.0 HIGH RISK Performed By: #### R ENAL, LIPID #### [facility] [address] [address] [address] Martha Sutherland Cholesterol [Mass/Vol] 253 mg/dL Critically high <=200 [facility] Comment on above: Performed By: #### R ENAL, LIPID #### [facility] [address] [place], [place] [address] Dr. Martha Sutherland Cholesterol in HDL [Mass/Vol] 45 mg/dL Normal 40-60 [facility] Comment on above: Performed By: #### R ENAL, LIPID #### [facility] [address] [place], [place] [address] Dr. Martha Sutherland Cholesterol in LDL [Mass/Vol] 153.4 mg/dL Normal [facility] Comment on above: Performed By: #### R ENAL, LIPID #### [facility] [address] [address] [address] Martha Sutherland Cholesterol.total/Liyah sterol in HDL [Mass ratio] 5.6 {ratio} Normal [facility] Comment on above: Performed By: #### R ENAL, LIPID #### [facility] [address] [address] [address] Martha Sutherland HDL NORMAL > or = 60 mg/dl - LOW CARDIOVASCULAR RISK <40 mg/dl - HIGH CARDIOVASCULAR RISK Normal [facility] Comment on above: Performed By: #### R ENAL, LIPID #### [facility] [address] [address] [address] Martha Sutherland LDL CALC NORMAL SEE BELOW Normal [facility] Comment on above: Result Comment: <100 mg/dl OPTIMAL 100 - 129 mg/dl NEAR OR ABOVE OPTIMAL 130 - 159 mg/dl BORDERLINE HIGH 160 - 189 mg/dl HIGH >190 mg/dl VERY HIGH Performed By: #### R ENAL, LIPID #### [facility] [address] [address] [address] Martha Sutherland Triglyceride [Mass/Vol] 273 mg/dL Critically high <=150 [facility] Comment on above: Performed By: #### R ENAL, LIPID #### [facility] [address] [address] [address] Martha Sutherland VLDL CALC 54.6 mg/dL Normal [facility] Comment on above: Performed By: #### R ENAL, LIPID #### [facility] [address] [address] [address] Martha Sutherland MICROALB CREAT RATIO RANDOMo n 12-22-2022 mALB 2.0 mg/L Normal <=30.0 [facility] Comment on above: Performed By: #### M CRR #### [facility] [address] [place] [address] Dr. Martha Sutherland MALB CR RATIO 28.7 mg/g Normal 0.0-29.9 [facility] Comment on above: Performed By: #### M CRR #### [facility] [address] [address] [address] Martha Sutherland MALB CR RATIO RANGE SEE BELOW Normal [facility] Comment on above: Result Comment: NO M ICROALBUMINURIA 0-29 MG/G CLINICAL MICROALBUMINURIA 30-300 MG/G MACROALBUMINURIA >300 MG/G Performed By: #### M CRR #### [facility] [address] [address] [address] Martha Sutherland URINE CREAT 69.72 mg/dL Normal 20.00-300.00 [facility] Comment on above: Performed By: #### M CRR #### [facility] [address] [address] [address] Martha Sutherland RENAL FUNCTION PANELon 12-22 Albumin [Mass/Vol] 3.6 g/dL Normal 3.4-5.0 [facility] Comment on above: Performed By: #### R ENJAKNI, LIPID #### [facility] [address] [address] [address] Martha Sutherland Calcium [Mass/Vol] 9.2 mg/dL Normal 8.5-10.1 [facility] Comment on above: Performed By: #### R ENJANKI, LIPID #### [facility] [address] [address] [address] Martha Sutherland Chloride [Moles/Vol] 102 mmol/L Normal 98-107 [facility] Comment on above: Performed By: #### R ENAL, LIPID #### [facility] [address] [address] [address] Martha Sutherland CO2 [Moles/Vol] 29.6 mmol/L Normal 21.0-32.0 [facility] Comment on above: Performed By: #### R ENAL, LIPID #### [facility] [address] [address] [address] Martha Sutherland Creatinine [Mass/Vol] 0.76 mg/dL Normal 0.55-1.02 [facility] Comment on above: Performed By: #### R ENAL, LIPID #### [facility] [address] [address] [address] Martha Sutherland EGFR-AF CITIZEN OF [place] >60 Normal >=60 [facility] Comment on above: Performed By: #### R ENAL, LIPID #### [facility] [address] [place] [address] Dr. Martha Sutherland EGFR-NON AF CITIZEN OF [place] >60 Normal >=60 [facility] Comment on above: Performed By: #### R ENAL, LIPID #### [facility] [address] [place] [address] Dr. Martha Sutherland Glucose [Mass/Vol] 212 mg/dL Critically high 74-106 [facility] Comment on above: Performed By: #### R ENAL, LIPID #### [facility] [address] [place] [address] Dr. Martha Sutherland Phosphate [Mass/Vol] 3.3 mg/dL Normal 2.6-4.7 [facility] Comment on above: Performed By: #### R ENJANKI, LIPID #### [facility] [address] [place] [address] Dr. Martha Sutherland Potassium [Moles/Vol] 5.0 mmol/L Normal 3.5-5.1 [facility] Comment on above: Performed By: #### R ENJANKI, LIPID #### [facility] [address] [place] [address] Dr. Martha Sutherland Sodium [Moles/Vol] 140 mmol/L Normal 136-145 [facility] Comment on above: Performed By: #### R ENAL, LIPID #### [facility] [address] [place] [address] Dr. Martha Sutehrland Urea nitrogen [Mass/Vol] 13.0 mg/dL Normal 7.0-18.0 [facility] Comment on above: Performed By: #### R ENAL, LIPID #### [facility] [address] [place] [address] Dr. Martha Sutherland VITAMIN D 25 OHon 12-22-2022 VIT D 25-OH 28.5 ng/mL Normal [facility] Comment on above: Performed By: #### V ITAD #### [facility] [address] [place] [address] Dr. Martha Sutherland VIT D RANGES SEE BELOW Normal [facility] Comment on above: Result Comment: <20 ng/mL Vit D deficient 20 - <30 ng/mL Vit D insufficient 30 - 100 ng/mL Vit D sufficient >100 ng/mL Potential Toxicity Performed By: #### V ITAD #### [facility] [address] [address] [address] Martha Sutherland XR LUMBAR SPINE 2-3 VIEWS (S TANDARD)on 11-23-2018 XR LUMBAR SPINE 2-3 VIEWS (STANDARD) EXAMINATION: XR LUMBAR SPINE 2-3 VIEWS (STANDARD): HISTORY: ORDERING SYSTEM PROVIDED HISTORY: Low back pain, TECHNOLOGIST PROVIDED HISTORY: Reason for exam: lbp radiates down rt side Illness/Other Cancer History: n Surgery, RadiationHistory: n Encounter Type: Ongoing Additional signs and symptoms: n ORDERING SYSTEM PROVIDED DIAGNOSIS CODES: M54.5 Low back pain Low back pain. COMPARISON: None. TECHNIQUE: Three views of the lumbar spine. FINDINGS: Bones appear osteopenic. There are 5 ong-mze-ixvtgpo lumbar type vertebral bodies segments noted. Convex right curvature of the thoracolumbar junction. Pedicles appear symmetric. No compression fracture is identified. No malalignment is seen. Ogrz-rf-igxzbgeq endplate spur along the lumbar spine is noted. Facet disease most pronounced along the lower lumbar spine. Mild calcific plaque in the abdominal aorta is seen. IMPRESSION: 1. Osteopenia. No acute fracture identified. 2. Convex right curvature of the thoracolumbar spine with zeya-bf-dythfhcr degenerative disc disease. MPH/aw Workstation ID: [id number] Dictated by: BAYLEE TYSON on WedNov 23, 2018 2:09:01 PM EST Transcribed by: SHOAIB TORRES on WedNov 23, 2018 2:34:25 PM EST Finalized by: BAYLEE TYSON on WedNov 23, 2018 2:38:[address] [facility] Comment on above: Order Comment: Reaso n for exam?:lbp radiates down rt side Injury/Trauma or Illness?:Illness/Other How long have you had these symptoms (acute/chronic)?:Chronic History of cancer?:n Surgeries, chemotherapy, or radiation?:n Type of Exam?:Ongoing Additional signs and symptoms?:n XR Lumbar Spine 2-3 Views (S tandard)on 11-23-2018 1. Osteopenia. No acute fracture identified. 2. Convex right curvature of the thoracolumbar spine with eryt-ut-ovlywijh degenerative disc disease. MPH/[employer] Workstation ID: [id number] [facility] EXAMINATION: XR LUMBAR SPINE 2-3 VIEWS (STANDARD): HISTORY: ORDERING SYSTEM PROVIDED HISTORY: Low back pain, TECHNOLOGIST PROVIDED HISTORY: Reason for exam: lbp radiates down rt side Illness/Other Cancer History: n Surgery, RadiationHistory: n Encounter Type: Ongoing Additional signs and symptoms: n ORDERING SYSTEM PROVIDED DIAGNOSIS CODES: M54.5 Low back pain Low back pain. COMPARISON: None. TECHNIQUE: Three views of the lumbar spine. FINDINGS: Bones appear osteopenic. There are 5 yhu-itx-jkylmrs lumbar type vertebral bodies segments noted. Convex right curvature of the thoracolumbar junction. Pedicles appear symmetric. No compression fracture is identified. No malalignment is seen. Ppyi-nk-rjzdfops endplate spur along the lumbar spine is noted. Facet disease most pronounced along the lower lumbar spine. Mild calcific plaque in the abdominal aorta is seen. [facility] Interface[facility]/23/2018 2:41 PM EST EXAMINATION: XR LUMBAR SPINE 2-3 VIEWS (STANDARD): HISTORY: ORDERING SYSTEM PROVIDED HISTORY: Low back pain, TECHNOLOGIST PROVIDED HISTORY: Reason for exam: lbp radiates down rt side Illness/Other Cancer History: n Surgery, RadiationHistory: n Encounter Type: Ongoing Additional signs and symptoms: n ORDERING SYSTEM PROVIDED DIAGNOSIS CODES: M54.5 Low back pain Low back pain. COMPARISON: None. TECHNIQUE: Three views of the lumbar spine. FINDINGS: Bones appear osteopenic. There are 5 ooo-vur-zgygycb lumbar type vertebral bodies segments noted. Convex right curvature of the thoracolumbar junction. Pedicles appear symmetric. No compression fracture is identified. No malalignment is seen. Tfub-lr-cswstmbh endplate spur along the lumbar spine is noted. Facet disease most pronounced along the lower lumbar spine. Mild calcific plaque in the abdominal aorta is seen. IMPRESSION: 1. Osteopenia. No acute fracture identified. 2. Convex right curvature of the thoracolumbar spine with jlhn-iy-pegarawe degenerative disc disease. M[facility]/[employer] Workstation ID: [id number] [facility] Vital Signs Date Time Vital Sign Value Performing Clinician Facility 11-30-2023 10:10-0500 Body height 167.6 cm Steven Maza DPM Work Phone: [facility] 11-30-2023 10:10-0500 Body mass index (BMI) [Ratio] 48.74 kg/m2 Steven Maza DPM Work Phone: [facility] 11-30-2023 10:10-0500 Body weight 136.99 kg Steven Maza DPM Work Phone: [facility] 10-28-2023 10:50-0500 Diastolic blood pressure 83 mm[Hg] MD Roberto Ramirez Work Phone: [facility] [facility]28[facility]23 10:50-0500 Heart rate 68 /min MD Roberto Ramirez Work Phone: [facility] 10-28-2023 10:50-0500 Respiratory rate 18 /min MD Roberto Ramirez Work Phone: [facility] 10-28-2023 10:50-0500 SaO2% (BldA) [Mass fraction] 94 % MD Roberto Ramirez Work Phone: [facility] 10-28-2023 10:50-0500 Systolic blood pressure 164 mm[Hg] MD Roberto Ramirez Work Phone: [facility] 10-28-2023 10:20-0500 Inhaled oxygen flow rate 8 L/min MD Roberto Ramirez Work Phone: [facility] 10-28-2023 09:11-0500 Body height 167.64 cm MD Roberto Ramirez Work Phone: [facility] 10-28-2023 09:11-0500 Body mass index (BMI) [Ratio] 49.1 kg/m2 MD Roberto Ramirez Work Phone: [facility] 10-28-2023 09:11-0500 Body weight 138 kg MD Roberto Ramirez Work Phone: [facility] 10-28-2023 07:23-0500 Body temperature 98 [degF] MD Roberto Ramirez Work Phone: [facility] 08-25-2023 15:05-0500 Blood Pressure Location Caden ROLLINS [facility] [place] 08-25-2023 15:05-0500 Diastolic blood pressure 66 mm[Hg] Caden TEEL [facility] [place] 08-25-2023 15:05-0500 Heart rate 64 /min Caden TEEL [facility] 08-25-2023 15:05-0500 Respiratory rate 16 /min Caden ROLLINS [facility] [place] 08-25-2023 15:05-0500 Systolic blood pressure 120 mm[Hg] Caden ROLLINS [facility] [place] Encounters Encounter Date Encounter Type Care Provider Facility Start: 02-17-2024 ambulatory Roberto Ramirez Facility :[facility] [place] Start: 12-21-2023 End: 12-22-2023 ambulatory Roberto Ramirez Facility:[facility] Start: 11-30-2023 Bamboo flowsheet Steven Yin er DPM Work Phone: [facility] Start: 11-30-2023 Bamboo flowsheet Steven Yin er DPM Work Phone: [facility] Start: 11-30-2023 End: 11-30-2023 ambulatory STEVEN MAZA Not Available Start: 11-30-2023 End: 11-30-2023 Office outpatient visit 15 minutes Steven Maza DPM Work Phone: [facility] Comment on above: Onychomycosis (Prima ry Dx); Dystrophic nail; Pain around toenail; Difficulty walking Start: 11-09-2023 End: 11-09-2023 ambulatory BRITTON LINK V Not Available Start: 11-04-2023 End: 11-05-2023 ambulatory Roberto Ramirez Facility:[facility] Start: 10-28-2023 End: 10-28-2023 ambulatory Britton Link Facility:[facility] Start: 10-28-2023 End: 10-28-2023 Admission to same day surgery center MD Roberto Ramirez Work Phone: [facility] [place] Start: 10-28-2023 End: 10-28-2023 ambulatory MD Roberto Ramirez Work Phone: [facility] Work Phone: Start: 10-19-2023 End: 10-19-2023 ambulatory BRITTON LINK V Not Available Start: 10-14-2023 End: 10-14-2023 ambulatory Britton Link Facility:[facility] Start: 10-14-2023 End: 10-14-2023 ambulatory MD Roberto Ramirez Work Phone: [facility] Work Phone: Start: 10-14-2023 End: 10-14-2023 Patient encounter procedure MD Roberto Ramirez Work Phone: [facility] Work Phone: Start: 09-22-2023 End: 09-23-2023 ambulatory Caden R NILL Facility:CD:[id number] Start: 09-15-2023 End: 09-15-2023 ambulatory BRITTON LINK V Not Available Start: 08-25-2023 End: 08-26-2023 ambulatory Caden R NILL Facility:[facility] Start: 08-25-2023 End: 08-25-2023 Patient encounter procedure Caden R NILL [facility] Start: 08-04-2023 End: 08-05-2023 ambulatory Roberto Ramirez Facility:[facility] Start: 08-03-2023 ambulatory Caden NILL Facility:[facility] Start: 07-23-2023 ambulatory Caden NILL Facility:[facility] Start: 07-22-2023 End: 07-23-2023 ambulatory Ginny Gibson Facility:[facility] Start: 07-08-2023 End: 07-09-2023 ambulatory Roberto Ramirez Facility:[facility] Start: 07-08-2023 End: 07-08-2023 Lab Drop off Roberto Ramirez [facility] Start: 06-08-2023 ambulatory Caden ROLLINS Facility:[facility] Start: 12-22-2022 End: 12-23-2022 ambulatory JAMIL ORLANDOGH Facility:[facility] Start: 09-22-2022 End: 09-23-[address] KEAGAN GILLILAND Facility:[facility] Start: 11-23-2018 End: 11-24-2018 Patient encounter procedure JO-ANN PORFIRIO [facility] Start: 11-23-2018 End: 11-23-2018 Patient encounter procedure Jo-Ann Zhu [facility] Work Phone: [facility] Comment on above: Low back pain Procedures Date Procedure Procedure Detail Performing Clinician Start: 10-28-2023 Excision of cyst MD Dao Ramirez Work Phone: Start: 05-14-2023 Mammography Steven simmons DPM Work Phone: Start: 11-23-2018 Radex spine lumbosac ral 2/3 views External Transcribed Colonoscopy Caden ROLLINS Excision of bunion Caden HERNANDEZ Hammer toe operation Caden ROLLINS Surgical procedure Roberto johns Tonsillectomy and adenoidectomy Roberto Ramirez Total abdominal hysterectomy with bilateral salpingo-oophorectomy Roberto Ramirez Plan of Treatment Date Care Activity Detail Author Start: 05-14-2024 Screening for malign ant neoplasm of breast Mammogram [facility] Start: 02-28-2024 End: 02-28-2024 Patient encounter procedure 02/28/2024 10:30 AM EDT Office Visit [facility] [address] [place] [address] Steven Maza, FRANKLYN [address] [place], [place] [id number] [facility] Start: 11-30-2023 End: 11-30-2023 Patient encounter procedure 11/30/2023 10:15 AM EST Office Visit [facility] [address] [place] [address] Steven Maza DPM [address] [place] [address] Arrived [facility] Comment on above: Arrived Start: 10-28-2023 [facility] Start: 10-28-2023 [facility] Start: 06-18-2018 Influenza vaccinatio n given SEQUENTIAL INFLUENZA VACCINE (#1) [facility] Start: 1991 Screening for malign ant neoplasm of cervix [facility] Start: 1982 Screening for malign ant neoplasm of cervix Pap Smear [facility] Start: 1961 Hepatitis C antibody , confirmatory test HEPATITIS C SCREENING [facility] Start: 1961 Protein mass conc COLONOSCOPY [facility] Start: 1961 Screening for malign ant neoplasm of cervix PAP SMEAR [facility] Start: 1961 Screening for malign ant neoplasm of colon [facility] Start: 1961 Tetanus vaccination TETANUS EVERY 10 YR [facility] Patient Education Laceration Rep air With Glue (DC) [facility] Work Phone: Patient referral [facility] Work Phone: Immunizations Immunization Date Immunization Notes Care Provider Fa cility 06-24-2023 influenza virus vacc ine, unspecified formulation Roberto Ramirez [facility] 06-03-2022 influenza virus vacc ine, unspecified formulation Roberto Ramirez [facility] 06-03-2022 zoster vaccine recombinant Roberto Ramirez [facility] 02-27-2022 COVID-19 (Pfizer) MD Roberto Ramirez Work Phone: [facility] 02-27-2022 SARS-CoV-2 mRNA (sxxihszyccm-vgar-uikvkz e) vaccine Roberto Ramirez [facility] 08-17-2021 COVID-19 (Pfizer) MD Roberto Ramirez Work Phone: [facility] 08-17-2021 SARS-CoV-2 (COVID-19 ) mRNA BNT-162b2 vax Roberto Ramirez [facility] 07-15-2021 influenza virus vacc ine, unspecified formulation Roberto Ramirez [facility] 07-15-2021 zoster vaccine recombinant Roberto Ramirez [facility] 01-31-2021 COVID-19 (Pfizer) MD Roberto Ramirez Work Phone: [facility] 01-31-2021 SARS-CoV-2 (COVID-19 ) mRNA BNT-162b2 vax Roberto Ramirez [facility] 01-10-2021 COVID-19 (Pfizer) MD Roberto Ramirez Work Phone: [facility] 01-10-2021 SARS-CoV-2 (COVID-19 ) mRNA BNT-162b2 vatravis Ramirez [facility] 07-21-2020 influenza virus vacc ine, unspecified formulation Roberto Ramirez [facility] 07-21-2020 pneumococcal conjuga te vaccine, 13 valent Roberto Ramirez [facility] 06-06-2019 influenza virus vacc ine, unspecified formulation Roberto Ramirez [facility] 06-22-2018 influenza virus vacc ine, unspecified formulation Roberto Ramirez [facility] 06-22-2018 pneumococcal polysaccharide vaccine, 23 valent Roberto Ramirez [facility] 05-28-2017 influenza virus vacc ine, unspecified formulation Roberto Ramirez [facility] 08-16-2016 influenza virus vacc ine, unspecified formulation Roberto Ramirez [facility] 07-31-2015 influenza virus vacc ine, unspecified formulation Roberto Ramirez [facility] Payers Date Payer Category Payer Self-pay [id number] 2019 Medicaid [employer] [place] [employer] [id number] 2019-Present [address] [place] [address] [id number] 2016 Unknown [employer] xxxxxxxxxxxx 2016-Present [id number] 1961 Unknown [id number] [id number] 1961 Unknown [id number] [id number]3 1961 Unknown [id number] 2.16.840.1.280056.3.579.2.593 1961 Unknown [id number] 2.16.840.1.428563.3.579.2.125 9 1961 Unknown [id number] 2.16.840.1.139045.3.579.2.125 9 1961 Unknown [id number] 2.16.840.1.958366.3.579.2.125 9 1961 Unknown [id number] 2.16.840.1.882444.3.579.2.125 9 1961 Unknown [id number] 2.16.840.1.207280.3.579.2.727 1961 Unknown [id number] 2.16.840.1.573645.3.579.2.727 1961 Unknown [id number] 2.16.840.1.956480.3.579.2.727 1961 Unknown [id number] 2.16.840.1.960924.3.579.2.727 1961 Unknown [id number] 2.16.840.1.034925.3.579.2.727 1961 Unknown [id number] 2.16.840.1.674445.3.579.2.727 1961 Unknown [id number] 2.16.840.1.582403.3.579.2.727 1961 Unknown [id number] 2.16.840.1.497333.3.579.2.727 1961 Unknown [id number] 2.16840.1.867201.3.579.2.727 1961 Unknown [id number] 2.16.840.1.670270.3.579.2.727 1959 Unknown [id number] Unknown [id number] 2.16840.1.106253.3.579.2.531 Unknown [id number] [id number] Social History Date Type Detail Facility Tobacco smoking stat [facility] Unknown if ever smoked [facility] Sex Assigned At Not on file [facility] Start: 07-08-2023 Tobacco smoking status Never smoked tobacco (finding) [facility] Start: 11-09-2023 Sex Assigned At Female [facility] Start: 08-25-2023 End: 09-15-2023 Tobacco smoking status Ex-smoker (finding) [facility] Start: 1960 Sex Assigned At Female [facility] Start: 10-18-1975 End: 10-18-2016 History of tobacco use Current smoker [facility] Start: 10-18-1975 End: 10-18-2016 History of tobacco use Cigarette Smoker [facility] Start: 09-15-2023 End: 11-09-2023 Cigarettes smoked current (pack per day) - Reported 2 [facility] Start: 09-15-2023 Tobacco use and exposure Smokeless tobacco non-user [facility] Start: 11-09-2023 End: 11-30-2023 Alcohol intake Lifetime non-drinker (finding) [facility] Start: 07-14-2023 Gender identity Identifies as female gender (finding) [facility] Start: 07-14-2023 Sexual orientation Heterosexual (finding) [facility] Goals Date Patient Goal Desired Activity /State Functional Status Date Assessment Result Facility 08-25-2023 Functional Status N/A [facility] Clinical Notes 09-22-2022 to 11-30-2023 Steven Maza, [facility] - 11/30/2023 10:15 AM ESTPatient Instructions Note Date & Type Note Facility 11-30-2023 History of Present illness Narrative Images from the original note were not included. Subjective Patient ID: Dayana Meng is a 63 y.o. female who presents for DM Foot Care (Pt presents today requesting nail care, /BS: 147 A1C: 8.1/Lv Dr. Max 11-05-2023/SS: 9.5-10). HPI Follow-up assessment: Symptomatic onychodystrophy/mycosis right great toe. Patient completed most recent 90 day course of oral terbinafine therapy early October 2023 without adverse effects. She does note slight interval improvement. The condition is again symptomatic with shoe gear pressure, impacting ADLs and walking activity. Denies bleeding or drainage. Attempts at self-care are difficult, ineffective and not practical; increasing risk exposure. Family members unable to provide effective care. Risk factors: Type II diabetes. Mobility and flexibility restraints. Toenail deformity. Digital and/or shoe trauma and related complications. Medications Current Outpatient Medications: atorvastatin (Lipitor) 20 MG tablet, Take 20 mg by mouth in the morning., Disp: , Rfl: empagliflozin (Jardiance) 25 MG, Take 25 mg by mouth., Disp: , Rfl: glimepiride (Amaryl) 4 MG tablet, Take 4 mg by mouth in the morning. Take before meals., Disp: , Rfl: lisinopril 10 MG tablet, Take 10 mg by mouth in the morning., Disp: , Rfl: Multiple Vitamin (multivitamin) tablet, Take 1 tablet by mouth in the morning., Disp: , Rfl: ProFe 391.3 (180 Fe) MG capsule, Take 1 capsule by mouth in the morning., Disp: , Rfl: Trulicity 1.5 MG/0.5ML solution pen-injector, INJECT 1.5 MG SUBCUTANEOUSLY ONCE A WEEK, Disp: , Rfl: Umeclidinium Austin (Incruse Ellipta) 62.5 MCG/ACT aerosol powder , Inhale., Disp: , Rfl: Allergies Latex and Wound dressing adhesive Past Surgical History Past Surgical History: Procedure Laterality Date BUNIONECTOMY Right 2007 hammertoes SECTION, LOW TRANSVERSE 1995 COLONOSCOPY FOOT SURGERY 1971 blood vessel broken HYSTERECTOMY 1998 OTHER SURGICAL HISTORY Left 2006 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 Pleasant disposition. FOOT EXAM: Date of Last Foot Exam 11/30/2023 Sensory testing performed: sensations normal Sensory and motor testing performed: strength normal Pedal pulse taking performed: 2+ Vascular: DORSALIS PEDIS PULSE:2/4, bilaterally. POSTERIOR TIBIAL PULSE:2/4, bilaterally. TEMPERATURE GRADIENT:warm to cool. EDEMA:none. CAPILLARY FILLING TIME(sec):capillary fill intact bilateral digits less than 3 secs. Neurologic: SHARP SENSATION:tactile and light touch sensation intact. SEMMES-BALWINDER 5.07 MONOFILAMENT normal. Dermatologic: SKIN FINDINGS:intact. Skin turgor is good. HYPERTROPHIC LESION:no forefoot or digital discrete keratotic pressure lesions are noted. NAIL PATHOLOGY: Right great toe: Estimate 20-25% residual DSO along the medial margin; reflecting interval proximal nail plate clearing. The distal nail plate remains thickened, dystrophic, discolored, with subungual and periungual keratotic and mycotic debris. No drainage is noted. The lunula remains spared. The lateral paronychia margin is cryptotic, tender, non-inflamed, without drainage. 5th digit right foot: Toenail dystrophy, discoloration and clinical mycosis. All remaining toenails: Clear and minimally dystrophic INGROWN NAIL PATHOLOGY:medial margin right great toe. MYCOSIS SCALE: total with debris; right great toe at baseline. INTERDIGITAL MACERATION:clean, dry, non-inflamed. TINEA PEDIS:dry keratotic scaling bilateral; minimally inflamed base. Orthopedic: JOINT RANGE OF MOTION:functional ankle, subtalar, midtarsal and MTP joint range of motion. 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 MUSCLE STRENGTHno focal deficits. Radiology: Assessment/Plan Recalcitrant, symptomatic onychodystrophy/mycosis right great toe; generally improved from baseline with previous oral terbinafine therapy, completed 90 day course without adverse effects. Type II diabetes. Surgical reduction HAV and digital deformities right foot ([facility]) Plan: Clinical Notes: review of clinical findings, etiology and contributing factors, response to date, treatment strategy, rationale and objectives. Review of overall efficacy, anticipated time frame for effective nail plate clearing; potential for recalcitrance and/or relapse and the need for further therapy. Adjunctive topical care: Use of vinegar and/or Listerine as directed; compliance is encouraged as able to do so. Diabetic education and assessment. Hygiene and skin care measures discussed. Procedure: Toenail Debridement: Aseptic technique: power/manual instrumentation: onychodebridement length and thickness, curretage of offending crypotic margins, nick-ungual debris, providing effective pressure and symptom relief, reducing shoe and digital trauma; reducing fungal reservoir. This note was created with the assistance of a speech recognition program. While intending to generate a timely document that accurately reflects the content of the visit, no guarantee can be provided that every grammatical or spelling mistake has been or will be identified or corrected. Thank you for your understanding. Steven Maza DPM documented in this encounter [facility] 11-30-2023 Instructions Steven Maaz DPM - 11/30/2023 10:15 AM EST As noted documented in this encounter [facility] 08-25-2023 Note Chief Complaint consultation for colonoscopy HPI Staff 63 year old female presents on consultation from Dr. Ramirez for surveillance colonoscopy. Denies abdominal or rectal pain. Patient with chronic rectal bleeding. Reports frequent loose stools for which she contributes to use of Trulicity. Denies nausea, vomiting or unexplained weight loss. Patient reports last colonoscopy completed within the past 10 years; reports normal. She reports remote history of colon polyp; pathology not available for review at this time. Mother with history of colon cancer, diagnosed age 81. History of Present Illness 63 yo female with h/o htn, DMII, COPD, referred for surveillance colonoscopy; h/o colon polyps in remote past; denies change in bms or blood in stools, no abd complaints; abdominal operations significant for AMEE with bso; last colonoscopy reportedly within the last 10 years, reportedly normal at that time; no asa or NSAID use, no SBE prophylaxis, fmhx of colon cancer in patient's mother, dx in her 80's; no fmhx of IBD; former smoker. Review of Systems ROS - Provider Constitutional: no fever, no sweats, no weight loss. Eyes: no glasses, no blurred vision, no visual loss. ENMT: no dentures, no hoarseness, no swallowing difficulties, no hearing loss, no ear infection(s), no nose bleeds. Cardiovascular: normal blood pressure, no chest pain, regular heartbeat, no heart murmur. Respiratory: no shortness of breath, no cough, no asthma, no wheezing. Gastrointestinal: no nausea, no vomiting, no diarrhea, no constipation, no blood in stool, no change in bowel habits, no abdominal pain, no hepatitis. Genitourinary: no kidney stones, no urine infection, no dysuria. Musculoskeletal: no pain, no weakness. Skin: no changing moles, no rash, no skin lumps. Neurologic: no seizures, no epilepsy, no headache. Psychiatric: no emotional or psychiatric problem. Heme/Lymph: no bleeding problems, no anemia, no blood clots, no transfusions. Allergy/Immunologic: no swollen lymph nodes/glands, no IV drug abuse. Other: Additional ROS info: Except as noted in the above Review of Systems and in the History of Present Illness, all other systems have been reviewed and are negative or noncontributory. Physical Exam Vitals & Measurements HR: 64(Peripheral) RR: 16 BP: 120/66 HT: 66 in HT: 166.5 cm WT: 138 kg WT: 303.6 lb BMI: 49.78 HEENT: normal conjunctiva, sclera clear, no scleral icterus, EOM intact, PERRLA, oral mucosa moist without lesions. Neck: trachea midline, no mass, symmetric, no thyromegaly or nodules, no adenopathy Respiratory: lungs CTA, respirations non labored. Cardiovascular: regular rate and rhythm, no murmur, no pedal edema or varicosities. Gastrointestinal: obese, soft, non distended, no tenderness, no masses, no palpable hernias, diastasis recti no, no hepatosplenomegaly; normal bs Lymphatic: no cervical adenopathy, no supraclavicular adenopathy. Musculoskeletal: normal gait, digits and nails without infection, nodes, cyanosis, clubbing. Skin: no rashes, no lesions, no ulcers, no subcutaneous nodules, induration. Psychiatric/Neuro: oriented to time, place, person, judgement normal, affect appropriate for age, insight intact, no focal deficits. Tests: review of old records completed , Discussed surgical options, risks, and possible complications with patient. Assessment/Plan 1. Personal history of colonic polyps (Z86.010: Personal history of colonic polyps) plan colonoscopy under anesthesia, informed consent obtained. 2. Screening for malignant neoplasm of colon (Z12.11: Encounter for screening for malignant neoplasm of colon) see # 1 3. BMI 45.0-49.9, adult (Z68.42: Body mass index [BMI] 45.0-49.9, adult) recommend diet and exercise. Follow-up No qualifying data available Problem List/Past Medical History Ongoing BMI 45.0-49.9, adult COPD without exacerbation Former smoker Hip pain, right HTN (hypertension) Iron deficiency Morbid obesity Personal history of colonic polyps Screening for colorectal cancer Screening for malignant neoplasm of colon Skin tag Type 2 diabetes mellitus Vaginal yeast infection Historical No qualifying data Procedure/Surgical History Bunionectomy, Colonoscopy, Colonoscopy, Colonoscopy, Correction of hammer toe, AMEE BSO - Total abdominal hysterectomy and bilateral salpingo-oophorectomy, Tonsillectomy and adenoidectomy. Medications atorvastatin 20 mg Tab citalopram 20 mg Tab Diflucan 150 mg Tab, 150 mg= 1 tab(s), Oral, Once glimepiride 4 mg Tab, BID Incruse Ellipta 62.5 mcg inhalation powder Jardiance 25 mg oral tablet lisinopril 40 mg Tab, 40 mg= 1 tab(s), Oral, Daily Multi Vitamin+, See Instructions ProFe 180 mg oral capsule, 180 mg= 1 cap(s), Oral, Daily, 3 refills Trulicity Pen 0.75 mg/0.5 mL subcutaneous solution Allergies Adhesive Bandage (Rash) No Known Medication Allergies Social History Alcohol - Denies Alcohol Use, 08/25/2023 Substance A (more content not included)... [facility] Comment on above: Result Comment: Elec tronically Signed By: AYO SORIANO, Caden Ellison.yuli\Date and Time Signed: 08/25/23 15:51 EST 09-22-2022 Note PROCEDURE: XR HIP RT 2 3V WO PELVIS HISTORY: Pain in right hip joint COMPARISON: None. FINDINGS: BONES:Moderate narrowing of the hip joint space with periarticular degenerative osteophytes. No fracture or dislocation. SOFT TISSUES:No visible soft tissue swelling. EFFUSION:None visible. OTHER: Negative. IMPRESSION: 1. Moderate degenerative joint disease. 2. No acute bone abnormality. Electronically authenticated by: STEVEN SANTA Date: 2022-09-22 14:35 [facility] Evaluation + Plan note Future Appointments Appointment Date:07/22/2023 09:20:00 AM Scheduled Provider:Ginny oWods Location:[facility] Appointment Type: Open Appointment Date:08/04/2023 03:00:00 PM Scheduled Provider:Roberto Ramirez MD Location:[facility] Appointment Type:[facility] Evaluation + Plan note Future Appointments Appointment Date:11/04/2023 01:00:00 PM Scheduled Provider:Roberto Ramirez MD Location:[facility] Appointment Type: Open General Surgery [place] Evaluation note No assessment inform ation available [facility] Work Phone: Evaluation note Diagnosis Onychomycosis- Primary Dermatophytosis of nail Dystrophic nail Other specified disease of nail Pain around toenail Difficulty walking Difficulty in walking documented in this encounter [facility] Narrative No data available for this section [facility] Dis[facility] No data available for this section [facility] note No data available for this section [facility] Diagnosis Low back pain Lumbago Advance Directives No Advanced Directives Records Found Advance Directive Response Recorded Date/ Time Advance Directives No December 22 2:21pm Summary Purpose Family History No Family History Records Found Relationship Condition Age at Onset Recorded Date/T leticia Not Specified Malignant neoplasm of colon Unknown father Myocardial infarction Unknown family member Malignant neoplasm of colon Unknown Chief Complaint and Reason for Visit Chief Complaint Vaginal Mass, Skin T ags Chief Complaint Vaginal Mass, Skin T ags Vaginal Mass, Skin Tags Additional Source Comments INFORMATION SOURCE (unrecogn ized section and content) DATE CREATED AUTHOR 07/23/2019 [facility] DATE CREATED AUTHOR AUTHOR'S ORGANIZ ATION 12/26/2022 [facility] DATE CREATED AUTHOR AUTHOR'S ORGANIZ ATION 11/10/2023 [facility] DATE CREATED AUTHOR AUTHOR'S ORGANIZ ATION 12/01/2023 [facility] EPIC DATE CREATED AUTHOR AUTHOR'S ORGANIZ ATION 12/22/2023 [facility] Patient Care team informatio n (unrecognized section and content) Team Status: Active Member Role Status Dates Roberto Ramirez MD Primary Care Provider Active Team Status: Inactive Member Role Status Dates Britton Link MD Attending Provider Active Roberto Ramirez MD Primary Care Provider Active Auto Service Representative Relationship Specialty Start Date End Date Roberto Ramirez MD [address] [facility] [place] [address] PCP - General Family Medicine 09/15/23 Auto Service Representative Relationship Specialty Start Date End Date Roberto Ramirez MD [address] [place] [address] PCP - General Family Medicine 09/15/23 Goals (unrecognized section and content) Goals may be documented in a n alternate section Reason for Visit (unrecogniz ed section and content) Reason Comments DM Foot Care Pt presents today re questing nail care, BS: 147 A1C: 8.1Lv Dr. Max 11-05-2023SS: 9.5-10 FOR RECORDS PERTAINING TO PATIENTS WHO ARE OR HAVE BEEN ENROLLED IN A CHEMICAL DEPENDENCY/SUBSTANCEABUSE PROGRAM, SOME INFORMATION MAY BE OMITTED. This clinical summary was aggregated from multiple sources. Caution should be exercised in using it in the provision of clinical care. This summary normalizes information from multiple sources, and as a consequence, information in this document may materially change the coding, format and clinical context of patient data. In addition, data may be omitted in some cases. CLINICAL DECISIONS SHOULD BE BASED ON THE PRIMARY CLINICAL RECORDS. [employer] provides no warranty or guarantee of the accuracy or completeness of information in this document.
[2024-01-19 12:23] LABS: Creatinine Urine Random 65.92 mg/dL (20.00-300.00); Microalbumin Urine Random <1.3 mg/dL (<=30.0)
[2024-01-19 12:35] LABS: Albumin Level 3.5 g/dL (3.4-5.0); Anion Gap 12.1; BUN Creatinine Ratio 19.4; Calcium 9.2 mg/dL (8.5-10.1); Carbon Dioxide 29.4 mmol/L (21.0-32.0); Chloride 100 mmol/L (98-107); Chol HDL Ratio 4.9; Cholesterol 225 mg/dL (<=200); Estimated GFR (African America >60 (>=60); Estimated GFR (Non-African Ame >60 (>=60); Glucose 137 mg/dL (74-106); HDL Cholesterol 46 mg/dL (40-60); Phosphorus 3.9 mg/dL (2.6-4.7); Potassium 4.5 mmol/L (3.5-5.1); Sodium 137 mmol/L (136-145); Triglycerides 311 mg/dL (<=150); VLDL CHOLESTEROL 62.2 mg/dL
== END 2024-01-19 08:20 | disposition home or self-care (01) ==
LOC: LAB 08:19
PROVIDERS: PCP Family Medicine; Visit Provider Internal Medicine
DX: E27.8 Other specified disorders of adrenal gland (principal); E11.59 Type 2 diabetes mellitus with other circulatory complications; Z71.3 Dietary counseling and surveillance; E66.01 Morbid (severe) obesity due to excess calories
CPT/HCPCS: 36415; 80061; 80069; 82043; 82306; 82570; 84681

== ENCOUNTER 2024-09-05 13:53 | Outpatient (OUT) | payer OTHER, SELFPAY ==
--- NOTE | 2024-09-05 13:56 | MM_ITS ---
Patient Name: MARCIE MENG MR#: [id number] : 1960 Exam Date: 09/05/2024 Ordering Doctor: DR. RANJIT BARNARD . RADIOLOGY REPORT PROCEDURE: MM TOMOSYNTHESIS SCREENING BI COMPARISON: MM TOMOSYNTHESIS SCREENING BI, 12/05/2021. MM TOMOSYNTHESIS SCREENING BI, 05/14/2023. INDICATIONS: Screening Calculator Name NCI Breast Cancer Risk Assessment Tool 5 Year Breast Cancer Risk 1.40% Lifetime Breast Cancer Risk 6.00% Personal Breast Cancer No Personal Ovarian Cancer No Treatments None Family Cancers Mother with colon cancer at age 81; Uncle-maternal with colon cancer at age ~75. LOCATION: [facility] BREAST COMPOSITION: There are scattered areas of fibroglandular density. FINDINGS: DIAGNOSTIC CATEGORY 2--BENIGN FINDING. NO CHANGE FROM COMPARISON. Scattered benign-appearing nodules are present. Scattered benign-appearing calcifications are present. Scattered benign-appearing lymph nodes are present. RIGHT BREAST: No significant suspicious finding. LEFT BREAST: No significant suspicious finding. RECOMMENDATIONS: ROUTINE MAMMOGRAM AND CLINICAL EVALUATION IN 12 MONTHS. PLEASE NOTE: A NORMAL MAMMOGRAM DOES NOT EXCLUDE THE POSSIBILITY OF BREAST CANCER. A CLINICALLY SUSPICIOUS PALPABLE LUMP SHOULD BE BIOPSIED. Dictated by: Juan Luis Hood MD on 09/06/2024 at 08:24 Approved by: Juan Luis Hood MD on 09/06/2024 at 08:25
== END 2024-09-05 13:54 | disposition home or self-care (01) ==
LOC: MAMMO 13:53
PROVIDERS: PCP Family Medicine; Visit Provider Family Medicine
DX: Z12.31 Encounter for screening mammogram for malignant neoplasm of breast (principal); Z80.0 Family history of malignant neoplasm of digestive organs
CPT/HCPCS: 77063; 77067

== ENCOUNTER 2025-02-26 08:00 | Outpatient (OUT) | payer OTHER, SELFPAY ==
--- OUTSIDE RECORDS SUMMARY | 2025-02-26 08:13 | XMS_ITS | CCD ---
Author Organization [facility] [place] [facility] Care Team Providers Care Technical Translator Name Role Phone Keagan Gilliland Primary Care Provider RAMÓN ARNETT Attending Unavailable RAMÓN ARNETT Referring Unavailable KEAGAN GILLILAND Primary Care Unavailable CIPRIANO MAX Admitting Unavailable CIPRIANO MAX Consulting Unavailable DARSHANA, DR LESLIE Primary Care Unavailable CIPRIANO MAX Attending Unavailable DARSHANA, DR LESLIE Consulting Unavailable COOLIDGE, DR LESLIE Attending Unavailable DARSHANA, DR LESLIE Admitting Unavailable DARSHANA, DR LESLIE Primary Care Unavailable [facility], DR ABHILASH Hobbs Consulting Unavailable Roberto Ramirez Primary Care Physician MD Britton Sainz Attending Provider MD Roberto Ramirez Primary Care Provider [phone] Britton Sainz Attending Unavailable Roberto Ramirez Primary Care Unavailable Britton Sainz Admitting Unavailable Britton Sainz Attending Unavailable Roberto Ramirez Primary Care Unavailable Britton Sainz Admitting Unavailable Roberto Ramirez MD Primary Care Provider Roberto Ramirez Admitting Unavailable Roberto Ramirez Attending Unavailable Roberto Ramirez Attending Unavailable Roberto Ramirez Attending Unavailable Roberto Ramirez MD Primary Care Provider CIPRIANO MAX Attending Unavailable ABHILASH MAZA Attending Unavailable CIPRIANO MAX Attending Unavailable CIPRIANO MAX Referring Unavailable Ginny Gibson Attending Unavailable Roberto Ramirez Attending Unavailable Roberto Ramirez Attending Unavailable Ginny Gibson Attending Unavailable Roberto Ramirez Admitting Unavailable Roberto Ramirez Attending Unavailable Allergies Allergy Classification Reported Allergen(s) Allergy Type Date of Onset Reaction(s) Facility (1 source) Latex Drug allergy (disorder) 5 [facility] Repository (4 sources) Adhesive bandage; Translations: [Adhesive Bandage] Propensity to adverse reactions to substance Eruption of skin (disorder) [facility] [place] (3 sources) natural latex rubber; Translations: [Latex, Natural Rubber] Allergy to substance 3 [facility] (9 sources) Latex Allergy to substance 6 Hives, Rash [facility] Healthcare Work Phone: (9 sources) Wound Dressing Adhesive Drug Intolerance 3 [facility] (2 sources) No Known Medication Allergies; Translations: [No Known Medication Allergies] Propensity to adverse reactions (disorder) [facility] Repository NEGATED: Highlighted row has been ruled out! (1 source) Drug allergy [facility] NEGATED: Highlighted row has been ruled out! (1 source) Drug allergy [facility] Medications Current Medications Medication Drug Class(es) Dates Sig (Normalized) Sig (Original) 0.25 MG, 0.5 MG Dose 3 ML semaglutide 0.68 MG/ML Pen Injector [Ozempic] (1 source) Start: 07-08-2023 Ozempic 2 mg/3 mL (0.25 mg or 0.5 mg dose) subcutaneous solution 0.25 mg, SubCutaneous, qWeek, # 1 EA, Refills(s) 0, [facility]: [facility] #[id number], 166.5, cm, 07/08/23 8:19:00 EDT, Height/Length Dosing, 136.7, kg, 07/08/23 8:19:00 EDT, Weight Dosing Start Date: 07/08/23 Status: Ordered acetaminophen 325 mg / HYDROcodone bitartrate 5 mg oral tablet (8 sources) Opioid Agonist Start: 10-14-2023 take 1 tablet by mouth every six hours as needed HYDROcodone-acetamin ophen ([place]) 5-325 MG tablet Take 1 tablet by mouth every 6 (six) hours if needed 10/14/2023 Active albuterol 0.83 mg/ml inhalation solution (1 source) beta2-Adrenergi c Agonist Start: 08-24-2024 take 2.5 mg by inhalation every six hours for wheezing albuterol 0.083% Inh Mya 3 mL 2.5 mg, 3 mL, Inhalation, q6hr for wheezing, 60 EA, Refill(s) 0, [id number], 166.5, cm, 08/24/24 13:01:00 EST, Height/Length Dosing, 134.5, kg, 08/24/24 13:01:00 EST, Weight Dosing Start Date: 08/24/24 Status: Ordered atorvastatin 20 mg oral tablet (12 sources) HMG-CoA Reductase Inhibitor Start: 07-08-2023 take 1 tablet by mouth once daily atorvastatin (Lipitor) 20 MG tablet Take 20 mg by mouth Daily 09/08/2023 Active cholecalciferol 0.05 mg oral capsule (2 sources) Vitamin D Start: 10-14-2023 take 1 capsule by mouth once daily Cholecalciferol (Vitamin D3) (Vitamin D3) 50 mcg (2,000 unit) Capsule Active 50 MCG PO Daily October 14, 2023 12:00am 0.5 ml dulaglutide 3 mg/ml auto-injector (13 sources) GLP-1 Receptor Agonist Start: 07-23-2023 Trulicity 1.5 MG/0.5ML solution pen-injector 07/23/2023 Active Start: 07-08-2023 inject 1.5 mg by sub cutaneous injection every week Trulicity Pen 0.75 mg/0.5 mL subcutaneous solution 2 mL, INJECT 0.75 MG UNDER THE SKIN ONCE WEEKLY FOR 4 WEEKS THEN INJECT 1.5 MG ONCE WEEKLY THEREAFTER, Refills(s) 0 Start Date: 07/08/23 Status: Ordered empagliflozin 25 mg oral tablet (16 sources) Sodium-Glucose Cotransporter 2 Inhibitor Start: 07-08-2023 End: 01-02-2025 take 1 tablet by mouth once daily empagliflozin (Jardiance) 25 MG Indications: Type 2 diabetes mellitus with hyperglycemia, without long-term current use of insulin ([facility]) Take 1 tablet by mouth once daily 30 tablet 5 12/08/2024 Active fluconazole 150 mg oral tablet (1 source) Azole Antifungal Start: 08-04-2023 take 1 tablet by mouth once Diflucan 150 mg Tab 150 mg = 1 tab(s), Oral, Once, # 1 tab(s), Refills(s) 0, Pharmacy: [facility] #[id number], 166.5, cm, 08/04/23 8:45:00 EDT, Height/Length Dosing, 137.8, kg, 08/04/23 8:45:00 EDT, Weight Dosing Start Date: 08/04/23 Status: Ordered glimepiride 4 mg oral tablet (16 sources) Sulfonylurea Start: 10-14-2023 End: 04-02-2025 take 1 tablet by mouth in the morning glimepiride (Amaryl) 4 MG tablet Indications: Type 2 diabetes mellitus with hyperglycemia, without long-term current use of insulin (CMS/[facility]ER[facility]) Take 1 tablet (4 mg) by mouth in the morning and 1 tablet (4 mg) before bedtime. 180 tablet 1 10/04/2024 04/02/2025 Active Start: 07-08-2023 take 4 tablets by mo ut twice daily, then take 1 tablet by mouth in the morning, then take 1 tablet by mouth at bedtime Handicap Placard, 5 years. (1 source) Start: 02-17-[address], 5 years. Handicap Placard, 5 years., See Instructions, 1 EA, 0, Handicap Placard, 5 years., Supply Start Date: 02/17/24 Status: Ordered Incruse Ellipta 62.5 mcg inhalation powder (3 sources) Start: 08-24-2024 Start: 07-08-2023 take 62.5 ug by inhalation in the morning lisinopril 20 mg oral tablet (14 sources) Angiotensin Converting Enzyme Inhibitor Start: 08-24-2024 take 1 tablet by mouth once daily lisinopril 20 mg Tab See Instructions, Take 1 tablet by mouth once daily, # 90 tab(s), Refills(s) 0, Pharmacy: [id number], 166.5, cm, 08/24/24 13:01:00 EST, Height/Length Dosing, 134.5, kg, 08/24/24 13:01:00 EST, Weight Dosing Start Date: 08/24/24 Status: Ordered Start: 08-04-2023 take 1 tablet by asdia once daily lisinopril 40 mg Tab 40 mg = 1 tab(s), Oral, Daily, # 90 tab(s), Refills(s) 0, [facility]acy: [facility] #[id number], 166.5, cm, 08/04/23 8:45:00 EDT, Height/Length Dosing, 137.8, kg, 08/04/23 8:45:00 EDT, Weight Dosing Start Date: 08/04/23 Status: Ordered Start: 07-08-2023 take 10 mg by mouth once daily in the morning Lisinopril Active 10 MG PO Every morning October 14, 2023 12:00am Multi Vitamin+ (3 sources) Start: 07-08-2023 Multi Vitamin+ See Instructions, Refill(s) 0, one tab daily Start Date: 07/08/23 Status: Ordered Multiple Vitamin (multivitamin) tablet (9 sources) take 1 tablet by mouth once daily Multiple Vitamin (multivitamin) tablet Take 1 tablet by mouth Daily Active take 1 tablet by mouth in the mo rning Multiple Vitamin (multivitamin) tablet Take 1 tablet by mouth in the morning. Active take 1 tablet by mouth in the mo rning Multiple Vitamin (multivitamin) tablet Take 1 tablet by mouth in the morning. 0 Active Um-Tqk-Tskwd-Calcium Carb-K1 (Women's 50 Plus Multivitamin) 400 mcg-500 mg calcium-20 mcg Tablet (2 sources) Start: 10-14-2023 take 1 tablet by mouth once daily Zt-Wmv-Eporm-Calcium Carb-K1 (Women's 50 Plus Multivitamin) 400 mcg-500 mg calcium-20 mcg Tablet Active 1 TAB PO Daily October 14, 2023 12:00am polysaccharide iron complex 391 mg oral capsule (9 sources) Start: 08-21-2023 take 1 capsule by mouth once daily ProFe 391.3 (180 Fe) MG capsule Take 1 capsule by mouth Daily 08/21/2023 Active Start: 08-21-2023 take 1 capsule by mo [facility] in the morning ProFe 391.3 (180 Fe) MG capsule Take 1 capsule by mouth in the morning. 08/21/2023 Active ProFe 180 mg oral capsule (2 sources) Start: 08-24-2024 take 1 capsule by mouth once daily ProFe 180 mg oral capsule 180 mg = 1 cap(s), Oral, Daily, # 100 cap(s), Refills(s) 3, Pharmacy: [id number], 166.5, cm, 08/24/24 13:01:00 EST, Height/Length Dosing, 134.5, kg, 08/24/24 13:01:00 EST, Weight Dosing Start Date: 08/24/24 Status: Ordered Start: 07-12-2023 take 1 capsule by [facility] once daily ProFe 180 mg oral capsule 180 mg = 1 cap(s), Oral, Daily, # 100 cap(s), Refills(s) 3, Pharmacy: [facility] #[id number], 166.5, cm, 07/08/23 8:19:00 EDT, Height/Length Dosing, 136.7, kg, 07/08/23 8:19:00 EDT, Weight Dosing Start Date: 07/12/23 Status: Ordered 1 mg dose 1.5 ml semaglutide 1.34 mg/ml pen injector (8 sources) Start: 08-24-2024 End: 03-21-2025 inject 1 mg by subcutaneous injection every week semaglutide (Ozempic) 2 MG/1.5ML solution pen-injector Indications: Type 2 diabetes mellitus with hyperglycemia, without long-term current use of insulin (CMS/[facility]) Inject 1 mg under the skin 1 (one) time per week 9 mL 1 10/04/2024 02/14/2025 Discontinued (Dose adjustment) Semaglutide, 2 MG/DOSE, (Ozempic, 2 MG/DOSE,) 8 MG/3ML solution pen-injector (2 sources) Start: 02-14-2025 End: 05-15-2025 Semaglutide, 2 MG/DOSE, (Ozempic, 2 MG/DOSE,) 8 MG/3ML solution pen-injector Indications: Type 2 diabetes mellitus with hyperglycemia, without long-term current use of insulin (CMS/HCC) Inject 2 mg under the skin every 7 (seven) days 6 mL 1 02/14/2025 05/15/2025 Active terbinafine 250 mg oral tablet (2 sources) Allylamine Antifungal Start: 10-14-2023 take 25 mg by mouth once daily in the morning Terbinafine Hcl Active 25 MG PO Every morning October 14, 2023 12:00am 7 actuat umeclidinium 0.0625 mg/actuat dry powder inhaler (9 sources) Anticholinergic Umeclidinium [place] (Incruse Ellipta) 62.5 MCG/ACT aerosol powder Inhale Active Completed/Discontinued Medications Medication Drug Class(es) Dates Sig (Normalized) Sig (Original) citalopram 20 mg oral tablet (2 sources) Serotonin Reuptake Inhibitor Start: 07-08-2023 take 1 tablet by mouth once daily citalopram 20 mg Tab 90 EA, take 1 tablet by mouth once daily, Refills(s) 0 Start Date: 07/08/23 Status: Ordered Problems Active Problems Problem Classification Problem Date Documented Date Episodic/Chronic Administrative/social admission (4 sources) Patient encounter status; Translations: [Dietary counseling and surveillance] 10-04-2024 Episodic Chronic obstructive pulmonary disease and bronchiectasis (9 sources) Chronic obstructive lung disease; Translations: [Chronic obstructive pulmonary disease, unspecified] Onset: 05-05-2023 07-08-2023 Chronic Diabetes mellitus with complications (10 sources) Type 2 diabetes mellitus with other circulatory complications; Translations: [Hyperglycemia due to type 2 diabetes mellitus] Onset: 12-22-2022 Chronic Diabetes mellitus without complication (9 sources) Type 2 diabetes mellitus; Translations: [Type 2 diabetes mellitus without complication] Onset: 02-08-2024 07-08-2023 Chronic Essential hypertension (14 sources) Essential (primary) hypertension; Translations: [Hypertensive disorder] Onset: 12-25-2022 07-08-2023 Chronic Mycoses (4 sources) Candidiasis of vagina; Translations: [Onychomycosis] 07-22-2023 Episodic Nutritional deficiencies (5 sources) Vitamin D deficiency, unspecified; Translations: [Vitamin D deficiency] Onset: 12-25-2022 10-04-2024 Chronic Osteoarthritis (13 sources) Unilateral primary osteoarthritis, right hip; Translations: [Arthritis] Onset: 09-26-2022 02-08-2024 Chronic Other and unspecified benign neoplasm (3 sources) History of polyp of colon; Translations: [Personal history of colonic polyps] Onset: 08-25-2023 Episodic Other connective tissue disease (2 sources) Pain in toe; Translations: [Pain in unspecified toe(s)] 11-30-2023 Episodic Other endocrine disorders (10 sources) Disorder of adrenal gland; Translations: [Disorder of adrenal gland, unspecified] Onset: 05-05-2023 02-08-2024 Chronic Other female genital disorders (1 source) Other specified noninflammatory disorders of vagina; Translations: [Other specified noninflammatory disorders of vagina] Onset: 10-28-2023 Episodic Other lower respiratory disease (1 source) Cough 04-14-2024 Episodic Other lower respiratory disease (1 source) Wheezing 04-14-2024 Episodic Other nervous system disorders (2 sources) Difficulty walking; Translations: [Difficulty in walking, not elsewhere classified] 11-30-2023 Chronic Other nutritional; endocrine; and metabolic disorders (9 sources) Body mass index 40+ - severely obese; Translations: [Body mass index (BMI) 45.0-49.9, adult] Onset: 08-25-2023 Chronic Other nutritional; endocrine; and metabolic disorders (8 sources) Morbid obesity; Translations: [Morbid (severe) obesity due to excess calories] Onset: 02-08-2024 08-25-2023 Chronic Other nutritional; endocrine; and metabolic disorders (4 sources) Severe obesity; Translations: [Class 3 severe obesity due to excess calories with serious comorbidity and body mass index (BMI) of 45.0 to 49.9 in adult (CMS/FORMERLY [facility])] 10-04-2024 Chronic Other screening for suspected conditions (not mental disorders or infectious disease) (1 source) Screening for malignant neoplasm of colon done; Translations: [Encounter for screening for malignant neoplasm of colon] Onset: 08-25-2023 Episodic Other skin disorders (3 sources) Skin tag 07-08-2023 Episodic Other skin disorders (1 source) Epidermal cyst; Translations: [Epidermal cyst] Onset: 10-28-2023 Episodic Other skin disorders (2 sources) Dystrophia unguium; Translations: [Nail dystrophy] 11-30-2023 Episodic Screening and history of mental health and substance abuse codes (3 sources) Ex-smoker 07-08-2023 Episodic Spondylosis; intervertebral disc disorders; other back problems (1 source) Low back pain; Translations: [Low back pain] Episodic Unclassified (6 sources) Patient encounter status 07-08-2023 Unclassified (1 source) Encounter for preprocedural laboratory examination; Translations: [Encounter for preprocedural laboratory examination] Onset: 10-14-2023 Past or Other Problems Problem Classification Problem Date Documented Date Episodic/Chronic Deficiency and other anemia (7 sources) Anemia due to unknown mechanism ; Translations: [Anemia, unspecified] Onset: 02-08-2024 07-08-2023 Episodic Nutritional deficiencies (8 sources) Iron deficiency; Translations: [Iron deficiency] Onset: 02-08-2024 07-12-2023 Episodic Other female genital disorders (9 sources) Vaginal mass; Translations: [Other specified noninflammatory disorders of vagina] Onset: 10-19-2023 10-19-2023 Episodic Other non-traumatic joint disorders (4 sources) Pain in right hip; Translations: [PAIN IN RIGHT HIP] Onset: 09-22-2022 Episodic Other non-traumatic joint disorders (9 sources) Hip pain; Translations: [Pain in right hip] Onset: 02-08-2024 07-08-2023 Episodic Other skin disorders (9 sources) Epidermoid cyst; Translations: [Epidermal cyst] Onset: 10-19-2023 10-19-2023 Episodic Results Test Name Value Interpretation Reference Range Facility Family Medicine Office/Clini c Noteon 02-22-2025 Family Medicine Office/Clinic Note Family Medicine Office/Clinic Note Chief Complaint 6m follow up Difficulty remembering to take medication and dietary restrictions related to statin treatment HPI Staff 6m follow up Patient is here for follow up on hypertension. How often are you checking your blood pressure? _NO Yearly BMP: _ BUN: 15 mg/dL (08/24/24 13:37:00) Calcium Lvl: 10.2 mg/dL (08/24/24 13:37:00) Chloride: 96 mmol/L Low (08/24/24 13:37:00) CO2: 35 mmol/L High (08/24/24 13:37:00) Creatinine: 0.9 mg/dL (08/24/24 13:37:00) eGFR: 72 mL/min/1.73 m2 (08/24/24 13:37:00) Glucose Lvl: 84 mg/dL (08/24/24 13:37:00) Potassium Lvl: 4.6 mmol/L (08/24/24 13:37:00) Sodium Lvl: 137 mmol/L (08/24/24 13:37:00) Patient is here for follow up on Diabetes. How often are you checking your blood sugars? _ daily What are your average readings? _120-150 Paresthesias, Ulcerations or sores? no Lisinopril, aspirin, statin therapy? Yes Foot Exam: none Eye Exam: [place] this past June Last A1c: Hgb A1C %: 7.3 % High (08/24/24 13:37:00) Did call our office 10/13/25 c/o possible yeast infection. Medication requested. Diflucan sent to pharmacy. Questions/Concerns: Taking Aleve daily due to hip pain. No refills needed at this time. Did say Dr Howard has orders for blood draw. NEG Mammo 09/05/24 Review of Systems PHQ Score Initial Depression Screen Score: 0 SCORE Physical Exam Vitals & Measurements T: 36.8 ???C(Tympanic) HR: 82(Peripheral) RR: 20 BP: 140/86 SpO2: 96% HT: 165.5 cm HT: 65 in WT: 134.4 kg WT: 296.301 lb BMI: 49.07 Assessment/Plan 1. Type 2 diabetes mellitus (E11.9: Type 2 diabetes mellitus without complications) Ordered: rosuvastatin, 20 mg = 1 tab(s), Oral, Daily, # 90 tab(s), Refills(s) 0, [id number], 165.5, cm, 02/22/25 12:53:00 EDT, Height/Length Dosing, 134.4, kg, 02/22/25 12:53:00 EDT, Weight Dosing Body Mass Index (BMI) documented 3008F Comprehensive Metabolic Panel CT Chest, Low Dose Screening Current tobacco non-user 1036F Depression Screening Negative 3352F Discharge medications reconciled with current medications in outpatient record 1111F Influenza immunization status assessed 1030F Iron Level Medication list documented in medical record 1159F Most recent diastolic blood pressure 80-89 mm Hg 3079F Most recent systolic blood pressure >= 140 mm Hg 3077F Patient screen for fall risk: no falls in last year or 1 fall with no injury in last year 1101F Review of all meds by a prescribing practitioner or clinical pharmacist documented in EHR 1160F 2. COPD without exacerbation (J44.9: Chronic obstructive pulmonary disease, unspecified) Ordered: rosuvastatin, 20 mg = 1 tab(s), Oral, Daily, # 90 tab(s), Refills(s) 0, Pharmacy: [facility], 165.5, cm, 02/22/25 12:53:00 EDT, Height/Length Dosing, 134.4, kg, 02/22/25 12:53:00 EDT, Weight Dosing Comprehensive Metabolic Panel CT Chest, Low Dose Screening Iron Level 3. BMI 45.0-49.9, adult (Z68.42: Body mass index [BMI] 45.0-49.9, adult) Ordered: rosuvastatin, 20 mg = 1 tab(s), Oral, Daily, # 90 tab(s), Refills(s) 0, Pharmacy: [facility], 165.5, cm, 02/22/25 12:53:00 EDT, Height/Length Dosing, 134.4, kg, 02/22/25 12:53:00 EDT, Weight Dosing Comprehensive Metabolic Panel CT Chest, Low Dose Screening Iron Level Screening mammography documented and reviewed 3014F 4. Morbid obesity (E66.01: Morbid (severe) obesity due to excess calories) Ordered: rosuvastatin, 20 mg = 1 tab(s), Oral, Daily, # 90 tab(s), Refills(s) 0, Pharmacy: [facility], 165.5, cm, 02/22/25 12:53:00 EDT, Height/Length Dosing, 134.4, kg, 02/22/25 12:53:00 EDT, Weight Dosing Comprehensive Metabolic Panel CT Chest, Low Dose Screening Iron Level 5. HTN (hypertension) (I10: Essential (primary) hypertension) Ordered: rosuvastatin, 20 mg = 1 tab(s), Oral, Daily, # 90 tab(s), Refills(s) 0, Pharmacy: [facility], 165.5, cm, 02/22/25 12:53:00 EDT, Height/Length Dosing, 134.4, kg, 02/22/25 12:53:00 EDT, Weight Dosing Comprehensive Metabolic Panel CT Chest, Low Dose Screening Iron Level 6. Former smoker (Z87.891: Personal history of nicotine dependence) Ordered: rosuvastatin, 20 mg = 1 tab(s), Oral, Daily, # 90 tab(s), Refills(s) 0, Pharmacy: [facility], 165.5, cm, 02/22/25 12:53:00 EDT, Height/Length Dosing, 134.4, kg, 02/22/25 12:53:00 EDT, Weight Dosing Comprehensive Metabolic Panel CT Chest, Low Dose Screening Iron Level 7. Hyperlipidemia, unspecified (E78.5) Ordered: rosuvastatin, 20 mg = 1 tab(s), Oral, Daily, # 90 tab(s), Refills(s) 0, Pharmacy: [facility], 165.5, cm, 02/22/25 12:53:00 EDT, Height/Length Dosing, 134.4, kg, 02/22/25 12:53:00 EDT, Weight Dosing Comprehensive Metabolic Panel Iron Level Orders: MA Mamm Screen w/CAD if perf and 3D Edgar Follow-up No qualifying data available Patient Education BMI for Adults Problem List/Past Medical History [place] (more content not included)... Normal [facility] Comment on above: Result Comment: Elec tronically Signed By: James SORIANO, Roberto Wallace\.br\Date and Time Signed: 02/22/25 15:22 EDT Family Medicine Office/Clinic Note Family Medicine Office/Clinic Note Chief Complaint 6m follow up Difficulty remembering to take medication and dietary restrictions related to statin treatment HPI Staff 6m follow up Patient is here for follow up on hypertension. How often are you checking your blood pressure? _NO Yearly BMP: _ BUN: 15 mg/dL (08/24/24 13:37:00) Calcium Lvl: 10.2 mg/dL (08/24/24 13:37:00) Chloride: 96 mmol/L Low (08/24/24 13:37:00) CO2: 35 mmol/L High (08/24/24 13:37:00) Creatinine: 0.9 mg/dL (08/24/24 13:37:00) eGFR: 72 mL/min/1.73 m2 (08/24/24 13:37:00) Glucose Lvl: 84 mg/dL (08/24/24 13:37:00) Potassium Lvl: 4.6 mmol/L (08/24/24 13:37:00) Sodium Lvl: 137 mmol/L (08/24/24 13:37:00) Patient is here for follow up on Diabetes. How often are you checking your blood sugars? _ daily What are your average readings? _120-150 Paresthesias, Ulcerations or sores? no Lisinopril, aspirin, statin therapy? Yes Foot Exam: none Eye Exam: [place] this past June Last A1c: Hgb A1C %: 7.3 % High (08/24/24 13:37:00) Did call our office 10/13/25 c/o possible yeast infection. Medication requested. Diflucan sent to pharmacy. Questions/Concerns: Taking Aleve daily due to hip pain. No refills needed at this time. Did say Dr Howard has orders for blood draw. NEG Mammo 09/05/24 History of Present Illness - The patient is a 64 year old female presenting for diabetes and hypertension management. - Reports recent A1c of 7.1 with Type 2 diabetes, managed with Ozempic, increased to 2.0, with improved glucose control. - Difficulty remembering statin intake due to grapefruit preference causing interaction concerns. - Reports elevated blood pressure today and missed medication dose. - Past history of hypertension, COPD without exacerbation, morbid obesity, and history of nicotine dependence. - Discussion of recent A1c of 7.1, diabetes managed with increased Ozempic to 2.0 mg. - Blood pressure monitoring and management; discussion of dietary interactions with statins. - Plans for comprehensive management of diabetes and hypertension, including medication adherence and dietary modifications. - Exploration of potential alternatives to statin choice allowing grapefruit intake (Crestor). Review of Systems PHQ Score Initial Depression Screen Score: 0 SCORE Physical Exam Vitals & Measurements T: 36.8 ???C(Tympanic) HR: 82(Peripheral) RR: 20 BP: 140/86 SpO2: 96% HT: 165.5 cm HT: 65 in WT: 134.4 kg WT: 296.301 lb BMI: 49.07 General: alert, no acute distress ENMT: oral mucosa moist Cardiovascular: Regular rate and rhythm, normal peripheral perfusion Respiratory: Lungs clear to auscultation, respirations non labored Extremities: no deformity, no trauma Neurological: oriented x 4, level of consciousness appropriate for age, CN II-XII intact, motor strength equal & normal bilaterally, speech normal Abdomen: Soft, Non-tender, Non-distended, + Bowel sounds Assessment/Plan 1. Type 2 diabetes mellitus (E11.9: Type 2 diabetes mellitus without complications) - Ozempic increased, noted improvement. Monitor A1c for glycemic control. Ordered: Body Mass Index (BMI) documented 3008F Comprehensive Metabolic Panel CT Chest, Low Dose Screening Current tobacco non-user 1036F Depression Screening Negative 3352F Discharge medications reconciled with current medications in outpatient record 1111F Influenza immunization status assessed 1030F Iron Level Medication list documented in medical record 1159F Most recent diastolic blood pressure 80-89 mm Hg 3079F Most recent systolic blood pressure >= 140 mm Hg 3077F Patient screen for fall risk: no falls in last year or 1 fall with no injury in last year 1101F Review of all meds by a prescribing practitioner or clinical pharmacist documented in EHR 1160F 2. COPD without exacerbation (J44.9: Chronic obstructive pulmonary disease, unspecified) - NO COPD issues at this time Ordered: Comprehensive Metabolic Panel CT Chest, Low Dose Screening Iron Level 3. BMI 45.0-49.9, adult, (Z68.42: Body mass index [BMI] 45.0-49.9, adult)Body mass index [BMI] 45.0-49.9, adult - BMI education added Ordered: Comprehensive Metabolic Panel CT Chest, Low Dose Screening Iron Level Screening mammography documented and reviewed 3014F 4. Morbid obesity (E66.01: Morbid (severe) obesity due to excess calories) - Diet and exercise advised. - Encouraged with the patient's weight loss Ordered: Comprehensive Metabolic Panel CT Chest, Low Dose Screening Iron Level 5. HTN (hypertension) (I10: Essential (primary) hypertension) - Evaluate blood pressure due to missed dose. Recheck management strategies. Ordered: Comprehensive Metabolic Panel CT Chest, Low Dose Screening Iron Level 6. Former smoker (Z87.891: Personal history of nicotine dependence) - Please continue to not smoke. Ordered: Comprehensive Metabolic Panel CT Chest, Low Dose Screening Iron Level 7. H (more content not included)... Normal [facility] Comment on above: Result Comment: Elec tronically Signed By: James SORIANO, Roberto Wallace\.br\Date and Time Signed: 02/22/25 13:18 EDT Glucose (Bld) [Mass/Vol]on 0 02-14-2025 Glucose Blood, POC 144 mg/dL [facility] - Hematology and Cell countson 02-14-2025 HbA1c (Bld) [Mass fraction] 7.1 % [facility] No Panel Informationon 02-14 [facility] Glucose (Bld) [Mass/Vol]Orde red By: Arelis Esqueda on 10-04-2024 Glucose Blood, POC 150 mg/dL [facility] - Hematology and Cell countson 10-04-2024 HbA1c (Bld) [Mass fraction] 7.3 % [facility] No Panel InformationOrdered By: Arelis Esqueda on 10-04-2024 [facility] Healthcare Ambulatory Visit Summaryon 1 11-12-2023 Ambulatory Visit Summary Ambulatory Visit Summary KASSI MENG :1960 Visit Date:09/12/2024 Ambulatory Visit Instructions Your Diagnosis BMI 45.0-49.9, adult Exogenous obesity Former smoker Your Care Team Attending Physician - Roberto Ramirez MD Primary Care Physician - Robetro Ramirez MD This Is Your Medications List [facility] Prescription (Handicap Nora, 5 years.) albuterol (albuterol 0.083% Inh Mya 3 mL) atorvastatin (atorvastatin 20 mg Tab) empagliflozin (Jardiance 25 mg oral tablet) glimepiride (glimepiride 4 mg Tab) iron polysaccharide (ProFe 180 mg oral capsule) lisinopril (lisinopril 20 mg Tab) multivitamin (Multi Vitamin+) semaglutide (Ozempic 2 mg/1.5 mL (1 mg dose) subcutaneous solution) umeclidinium (Incruse Ellipta 62.5 mcg inhalation powder) Procedures Performed Excision of mass (10/29/2023), Bunionectomy, Colonoscopy, Colonoscopy, Colonoscopy, Correction of hammer toe, AMEE BSO - Total abdominal hysterectomy and bilateral salpingo-oophorectom y, Tonsillectomy and adenoidectomy. Discharge Vitals Temperature (Oral) 36.9 ???C Heart Rate (Peripheral) 80 Respiratory Rate 16 Blood Pressure 136/84 Height 165.5 cm Height 65 in Weight 136.6 kg Weight 301.151 lb BMI 49.87 What to do next Scheduled Follow-Up Appointments 2024 1:00 PM EDT With: Roberto Ramirez MD Where: [facility] [place] [id number]- Medications What How Much When Why Instructions Unchanged albuterol (albuterol 0.083% Inh Mya 3 mL) 3 Milliliter Inhalation Every 6 hours as needed for for wheezing Unchanged atorvastatin (atorvastatin 20 mg Tab) 20 Unknown, oral, 1 Refill(s), Take 1 tablet (20 mg total) by mouth in the morning. Unchanged empagliflozin (Jardiance 25 mg oral tablet) 25 Unknown, oral, 1 Refill(s), Take 1 tablet (25 mg total) by mouth in the morning. Unchanged glimepiride (glimepiride 4 mg Tab) 2 times a day 4 Unknown, oral, 1 Refill(s), Take 1 tablet (4 mg total) by mouth in the morning and 1 tablet (4 mg total) before bedtime. Unchanged iron polysaccharide (ProFe 180 mg oral capsule) 1 Capsules By Mouth Every day Unchanged lisinopril (lisinopril 20 mg Tab) See instructions Take 1 tablet by mouth once daily Unchanged Misc Prescription (Handicap Nora, 5 years.) See instructions HTN (hypertension) BMI 45.0-49.9, adult Class 3 severe obesity due to excess calories with body mass index (BMI) of 45.0 to 49.9 in adult Former smoker COPD without exacerbation Hip pain, right Type 2 diabetes mellitus Handicap Placard, 5 years. Unchanged multivitamin (Multi Vitamin+) See instructions one tab daily Unchanged semaglutide (Ozempic 2 mg/ 1.5 mL (1 mg dose) subcutaneous solution) See instructions 1.0mg sub q once a week Unchanged umeclidinium (Incruse Ellipta 62.5 mcg inhalation powder) 1 Inhalation Inhalation Every 24 hours 1 Unknown, 1 Refill(s), 1 puff in the morning. Allergies Adhesive Bandage (Rash) No Known Medication Allergies Problems Ongoing - Any problem that you are currently receiving treatment for. BMI 45.0-49.9, adult COPD without exacerbation Cough Former smoker Hip pain, right HTN (hypertension) Iron deficiency Leukocytosis Morbid obesity Personal history of colonic polyps Physical exam Screening for malignant neoplasm of colon Screening mammogram, encounter for Skin tag Type 2 diabetes mellitus Vaginal yeast infection Wheezing Patient Survey You may receive a survey via text or e-mail asking about your office visit. Please share your experience with us by completing your survey. We appreciate your feedback and thank you for choosing us for your care. Normal [facility] Family Medicine Office/Clini c Noteon 09-12-2024 Family Medicine Office/Clinic Note Family Medicine Office/Clinic Note [facility] Staff Kassi is a 64 year old female presenting for sick visit Acute: congestion, ear pain Fevers: no Sinus congestion: yes Sneezing: yes Cough: yes Ear pain: yes bilateral Ear itching, popping, fullness, ringing, muffled hearing: muffled Ear drainage: no Swollen nodes: no Sore throat: on and off Ear pain worse with chewing: no DIfficulty hearing: none History of Present Illness The patient is a 64-year-old female presenting with respiratory symptoms and sinus pressure. She reports a cough that started approximately four days ago, which has worsened over the past two days. There was a recent attendance at a wedding and , where she was potentially exposed to viral infections, including COVID-19 and streptococcal infections, as she mentioned someone at the wedding was sick with strep throat. The patient has experienced increased mucus production, attempted to hack out mucus, and reports a mild cough. She denies any smoking currently but has a history of smoking. No other respiratory symptoms were mentioned. The patient expressed concern due to an elevated white blood cell count noted previously. The patient is worried about exacerbating COPD or having developed a new infection, considering her respiratory symptoms. Review of Systems PHQ Score Initial Depression Screen Score: 1 SCORE Physical Exam Vitals & Measurements T: 36.9 ???C(Oral) HR: 80(Peripheral) RR: 16 BP: 136/84 SpO2: 95% HT: 65 in HT: 165.5 cm WT: 136.6 kg WT: 301.151 lb BMI: 49.87 General: alert, no acute distress ENMT: oral mucosa moist, ears with a little bit of fluid, not red, landmarks visible, slightly bulging Cardiovascular: Regular rate and rhythm, normal peripheral perfusion Respiratory: Lungs clear to auscultation, respirations non labored, lungs sound really good Extremities: no deformity, no trauma Neurological: oriented x 4, level of consciousness appropriate for age, CN II-XII intact, motor strength equal & normal bilaterally, speech normal Abdomen: Soft, Non-tender, Non-distended, + Bowel sounds Assessment/Plan 1. Acute sinusitis, unspecified (J01.90) The patient reported sinus congestion and pressure. Mucinex (plain) was suggested to help alleviate mucus build-up without impacting blood pressure. Monitoring for symptom progression was recommended, and oral steroids included aim to relieve sinus-related inflammation. COVID-negative at this time. 2. Chronic obstructive pulmonary disease, unspecified (J44.9) The patient???s lung auscultation was clear, but given the history of COPD and recent symptoms, a short course of oral steroids and azithromycin was suggested as a precautionary measure to manage potential exacerbation. Discussion indicated assessing symptom improvement over the coming days and considering spirometry once symptoms resolve and the patient is baseline, in order to evaluate lung function outside of an acute episode. Will treat as a COPD exacerbation in the case that the symptoms go into her lungs. 3. BMI 45.0-49.9, adult (Z68.42: Body mass index [BMI] 45.0-49.9, adult) BMI education added Ordered: Body Mass Index (BMI) documented 3008F Current tobacco smoker 1034F Depression Screening Negative 3352F Influenza immunization administered or previously received 4274F Most recent diastolic blood pressure 80-89 mm Hg 3079F Rapid COVID POC 95613 Systolic BP 130-139 mm Hg (Most Recent) 3075F 4. Exogenous obesity (E66.09: Other obesity due to excess calories) Diet and exercise advised Ordered: Body Mass Index (BMI) documented 3008F Current tobacco smoker 1034F Depression Screening Negative 3352F Influenza immunization administered or previously received 4274F Most recent diastolic blood pressure 80-89 mm Hg 3079F Rapid COVID POC 71480 Systolic BP 130-139 mm Hg (Most Recent) 3075F 5. Former smoker (Z87.891: Personal history of nicotine dependence) Please continue to not smoke Ordered: Body Mass Index (BMI) documented 3008F Current tobacco smoker 1034F Depression Screening Negative 3352F Influenza immunization administered or previously received 4274F Most recent diastolic blood pressure 80-89 mm Hg 3079F Rapid COVID POC 17241 Systolic BP 130-139 mm Hg (Most Recent) 3075F Cough (R05.9: Cough, unspecified) Ordered: Rapid COVID POC 84458 Sinus congestion (R09.81: Nasal congestion) Ordered: Rapid COVID POC 78798 Orders: azithromycin, = 1 packet(s), Oral, As Directed, as directed on package labeling, X 5 day(s), # 6 tab(s), Refills(s) 0, Pharmacy: [facility], 165.5, cm, 09/12/24 9:11:00 EST, Height/Length Dosing, 136.6, kg, 09/12/24 9:11:00 EST, Weight Dosing methylPREDNISolone, = 1 packet(s), Oral, As Directed, as directed on package labeling, X 6 day(s), # 21 tab(s), Refills(s) 0, Pharmacy: [facility], 165.5, cm, 09/12/24 9:11:00 EST, Height/Length Dosing, 136.6, kg, 09/12/24 9:11:00 EST, Weight Dosing (more content not included)... [facility] Comment on above: Result Comment: Elec tronically Signed By: James SORIANO, Roberto Wallace\.br\Date and Time Signed: 09/12/24 10:16 EST Provider Letteron 09-05-2024 Provider Letter Provider Letter September 05, 2024 KASSI MENG [address] [address] : 1960 Dear Ms. Kassi Meng , We have been trying to reach you with no success. It is important that you return our call regarding your recent labs upon receiving this letter. Also, at the time of your call, please provide us with your current information. Thank you for your prompt attention to this matter. Sincerely, Dr. Roberto Ramirez [address] [address] [facility] .Interpretation:on 4 HCV Ab IA Ql Comment Invalid Interpretation Code [facility] Comment on above: Result Comment: Not infected with HCV unless early or acute infection is suspected (which may be delayed in an immunocompromised individual), or other evidence exists to indicate HCV infection. Performed at: [facility] [id number] PhD Carlo Berman Performed By: #### 2 [id number] #### [facility] [address] [place] [address] HCV Antibody RFX to Quant PC Jah 08-26-2024 HCV IgG IA Ql Non-Reactive Invalid Interpretation Code Non Reactive [facility] Comment on above: Result Comment: Perf ormed at: [facility] [address] [id number] PhD Carlo Berman Performed By: #### 2 [id number] #### [facility] [address] [place] [address] CBC w/ Auto Diffon 4 Basophils/100 WBC (Bld) 0.4 % Normal 0.0-2.0 [facility] Comment on above: Performed By: #### 2 [id number] #### [facility] [address] [place] [address] Basophils/Leukocytes Auto (Bld) [Pure # fraction] 0.1 E9/L Normal 0.0-0.[address] [facility] Comment on above: Performed By: #### 2 [id number] #### [facility] [address] [place] [address] Eosinophils (Bld) [#/Vol] 0.2 E9/L Normal 0.0-0.[address] [facility] Comment on above: Performed By: #### 2 [id number] #### [facility] [address] [place] [address] Eosinophils/100 WBC (Bld) 1.4 % Normal 0.0-8.[address] [facility] Comment on above: Performed By: #### 2 [id number] #### [facility] [address] [place] [address] Erythrocyte distribution width (RBC) [Ratio] 15.2 % High 10.9-14.[address] [facility] Comment on above: Performed By: #### 2 [id number] #### [facility] [address] [place] [address] Hematocrit (Bld) [Volume fraction] 49.0 % High 34.0-46.[address] [facility] Comment on above: Performed By: #### 2 [id number] #### [facility] [address] [place] [address] Hemoglobin (Bld) [Mass/Vol] 15.9 g/dL Normal 12.0-16.[address] [facility] Comment on above: Performed By: #### 2 [id number] #### [facility] [address] [place] [address] Lymphocytes (Bld) [#/Vol] 4.6 E9/L High 1.0-4.[address] [facility] Comment on above: Performed By: #### 2 [id number] #### [facility] [address] [place] [address] Lymphocytes/100 WBC (Bld) 28.9 % Normal 14.0-50.[address] [facility] Comment on above: Performed By: #### 2 [id number] #### [facility] [address] [place] [address] MCH (RBC) [Entitic mass] 26.2 pg Low 27.0-34.[address] [facility] Comment on above: Performed By: #### 2 438330 #### [facility] [address] [place] [address] MCHC (RBC) [Mass/Vol] 32.5 g/dL Normal 31.4-36.0 [facility] Comment on above: Performed By: #### 2 [id number] #### [facility] [address] [place] [address] MCV (RBC) [Entitic vol] 80.5 fL Normal 80.0-100.0 [facility] Comment on above: Performed By: #### 2 830460 #### [facility] [address] [place] [address] Monocytes (Bld) [#/Vol] 1.0 E9/L Normal 0.2-1.0 [facility] Comment on above: Performed By: #### 2 [id number] #### [facility] [address] [place] [address] Neutrophils (Bld) [#/Vol] 10.0 E9/L High 2.0-7.[address] [facility] Comment on above: Performed By: #### 2 458605 #### [facility] [address] [place] [address] Neutrophils/100 WBC (Bld) 62.7 % Normal 36.0-75.[address] [facility] Comment on above: Performed By: #### 2 [id number] #### [facility] [address] [place] [address] Platelet mean volume (Bld) [Entitic vol] 7.7 fL Normal 6.4-10.[address] [facility] Comment on above: Performed By: #### 2 [id number] #### [facility] [address] [place] [address] Platelets (Bld) [#/Vol] 377.0 E9/L Normal 150.0-500.[address] [facility] Comment on above: Performed By: #### 2 [id number] #### [facility] [address] [place] [address] RBC (Bld) [#/Vol] 6.1 E12/L High 4.3-5.[address] [facility] Comment on above: Performed By: #### 2 [id number] #### [facility] [address] [place] [address] WBC corrected for nucl RBC Auto (Bld) [#/Vol] 15.9 E9/L High 4.0-11.0 [facility] Comment on above: Performed By: #### 2 134937 #### [facility] [address] [place] [address] CHEMISTRYOrdered By: Prince Ochoa on 08-24-2024 Albumin DL <= 20 mg/L (U) [Mass/Vol] mg/dL Normal 0.0 - 1.9 mg/dL [facility] Albumin/Creatinine DL <= 20 mg/L (U) [Mass ratio] NOT CALCULATED Invalid Interpretation Code 0.0 - 30.0 [facility] Comment on above: Interpretive Data: 3 0-300 mg/g Cr indicates an increased risk for diabetic nephropathy. >300 mg/g Cr is consistent with clinical nephropathy. U Creatinine 73.7 mg/dL Invalid Interpretation Code [facility] CHEMISTRYOrdered By: SYSTEM SYSTEM on 08-24-2024 Albumin [Mass/Vol] 4.6 g/dL Normal 3.3 - 5.0 gm/dL [facility] Albumin/Globulin [Mass ratio] 1.3 {ratio} Normal 1.1 - 2.2 [facility] ALP [Catalytic activity/Vol] 90 [iU]/d Normal 21 - 98 Int._Unit/L [facility] ALT No additional P-5'-P [Catalytic activity/Vol] 14 [iU]/d Normal 6 - 46 Int._Unit/L [facility] Anion gap [Moles/Vol] 11 mmol/L Normal 6 - 16 mEq/L R [facility] AST [Catalytic activity/Vol] 12 [iU]/d Normal 5 - 43 Int._Unit/L [facility] Bilirubin [Mass/Vol] 0.5 mg/dL Normal 0.0 - 1 .1 mg/dL [facility] Calcium [Mass/Vol] 10.2 mg/dL Normal 8.9 - 11. 1 mg/dL [facility] Chloride [Moles/Vol] 96 mmol/L Low 101 - 1 11 mmol/L [facility] Cholesterol [Mass/Vol] 254 mg/dL High 120 - 200 mg/dL [facility] Cholesterol in HDL [Mass/Vol] 52 mg/dL Invalid Interpretation Code [facility] Comment on above: Result Comment: '>= 60 LOW RISK' '<= 40 HIGH RISK' Cholesterol in LDL [Mass/Vol] 168 mg/dL High <=129mg/dL [facility] Cholesterol in VLDL [Mass/Vol] 75 mg/dL High 7 - 40 mg/dL [facility] CO2 [Moles/Vol] 35 mmol/L High 21 - 31 mmol/L [facility] Creatinine [Mass/Vol] 0.9 mg/dL Normal 0.5 - 1.3 mg/dL [facility] eGFR 72 mL/min/1.73 m2 Normal >=59mL/min /1 .73 m2 [facility] Globulin (S) [Mass/Vol] 3.5 g/dL Normal 1.4 - 4.0 gm/dL [facility] Glucose [Mass/Vol] 84 mg/dL Normal 55 - 199 mg/dL [facility] Potassium [Moles/Vol] 4.6 mmol/L Normal 3.5 - 5.3 mmol/L [facility] Protein [Mass/Vol] 8.1 g/dL High 6.0 - 7.8 gm/dL [facility] Sodium [Moles/Vol] 137 mmol/L Normal 135 - 145 mmol/L [facility] Triglyceride [Mass/Vol] 375 mg/dL High <=149mg/dL R [facility] Urea nitrogen [Mass/Vol] 15 mg/dL Normal 5 - 21 mg/dL [facility] Urea nitrogen/Creatinine [Mass ratio] 17 mg/mg Normal 10 - 20 [facility] CHEMISTRYOrdered By: Meredith Jarquin on 08-24-2024 HbA1c (Bld) [Mass fraction] 7.3 % High <=5.9% [facility] ChemAutoSS CMPon 08-24-2024 Albumin [Mass/Vol] 4.6 g/dL Normal 3.3-5.[address] [facility] Comment on above: Performed By: #### 2 [id number] #### [facility] [address] [place] [address] Albumin/Globulin (S) [Mass conc ratio] 1.3 Normal 1.1-2.[address] [facility] Comment on above: Performed By: #### 2 785154 #### [facility] [address] [place] [address] ALP [Catalytic activity/Vol] 90 Int._Unit/L Normal 21-[address] [facility] Comment on above: Performed By: #### 2 239102 #### [facility] [address] [place] [address] ALT No additional P-5'-P [Catalytic activity/Vol] 14 Int._Unit/L Normal 6-[address] [facility] Comment on above: Performed By: #### 2 317098 #### [facility] [address] [place] [address] Anion gap [Moles/Vol] 11 mmol/L Normal 6-16 [facility] Comment on above: Performed By: #### 2 851525 #### [facility] [address] [place] [address] AST [Catalytic activity/Vol] 12 Int._Unit/L Normal 5-[address] [facility] Comment on above: Performed By: #### 2 186553 #### [facility] [address] [place] [address] Bilirubin [Mass/Vol] 0.5 mg/dL Normal 0.0-1.1 [facility] Comment on above: Performed By: #### 2 718145 #### [facility] [address] [place] [address] Calcium [Mass/Vol] 10.2 mg/dL Normal 8.9-11.[address] [facility] Comment on above: Performed By: #### 2 401324 #### [facility] [address] [place] [address] Chloride [Moles/Vol] 96 mmol/L Low 101-111 [facility] Comment on above: Performed By: #### 2 884109 #### [facility] [address] [place] [address] CO2 [Moles/Vol] 35 mmol/L High 21-31 [facility] Comment on above: Performed By: #### 2 708208 #### [facility] [address] [place] [address] Creatinine [Mass/Vol] 0.9 mg/dL Normal 0.5-1.3 [facility] Comment on above: Performed By: #### 2 727163 #### [facility] [address] [place] [address] Globulin (S) [Mass/Vol] 3.5 g/dL Normal 1.4-4.0 [facility] Comment on above: Performed By: #### 2 685519 #### [facility] [address] [place] [address] Glucose [Mass/Vol] 84 mg/dL Normal 55-[address] [facility] Comment on above: Performed By: #### 2 [id number] #### [facility] [address] [place] [address] Potassium [Moles/Vol] 4.6 mmol/L Normal 3.5-5.3 [facility] Comment on above: Performed By: #### 2 670687 #### [facility] [address] [place] [address] Protein [Mass/Vol] 8.1 g/dL High 6.0-7.[address] [facility] Comment on above: Performed By: #### 2 687755 #### [facility] [address] [place] [address] Sodium [Moles/Vol] 137 mmol/L Normal 135-[address] [facility] Comment on above: Performed By: #### 2 172941 #### [facility] [address] [place] [address] Urea nitrogen [Mass/Vol] 15 mg/dL Normal 5-[address] [facility] Comment on above: Performed By: #### 2 086362 #### [facility] [address] [place] [address] Urea nitrogen/Creatinine [Mass ratio] 17 No Units Normal 10-[address] [facility] Comment on above: Performed By: #### 2 935275 #### [facility] [address] [place] [address] Family Medicine Office/Clini c Noteon 08-24-2024 Family Medicine Office/Clinic Note Family Medicine Office/Clinic Note HPI Staff Kassi is a 64 year old female presenting for full PE Health Maintenance: Colonoscopy: 09/22/23 Dexa: none Mammo: due Pap: UTD 2022 Last Labs: 01/2024 bmp, lipids flu: 06/22/24 questions/concerns: History of Present Illness Pt here for CPE. NO issues at this time. Had EMG for sciatica pain. Chiropractics are working well. Review of Systems PHQ Score Initial Depression Screen Score: 0 SCORE Physical Exam Vitals & Measurements T: 36.3 ???C(Temporal Artery) HR: 86(Peripheral) RR: 18 BP: 126/80 SpO2: 95% HT: 66 in HT: 166.5 cm WT: 134.5 kg WT: 295.9 lb BMI: 48.52 General: alert, no acute distress ENMT: oral mucosa moist, Cardiovascular: regular rate and rhythm, normal peripheral perfusion Respiratory: Lungs CTA, respirations non labored Extremities: no deformity, no trauma Neurological: oriented x 4, LOC appropriate for age, CN II-XII intact, motor strength equal & normal bilaterally, speech normal Abdomen: Soft, Nontender, Non-distended, + BS Assessment/Plan 1. Physical exam (Z00.00: Encounter for general adult medical examination without abnormal findings) Anticipatory guidance given. Discussed diet and exercise. Discussed immunizations. Ordered: Est Preventative 40 to 64 years [address] 2. BMI 40.0-44.9, adult (Z68.41: Body mass index [BMI] 40.0-44.9, adult) BMI education added Ordered: Body Mass Index (BMI) documented 3008F CBC w/ Auto Diff Comprehensive Metabolic Panel Current tobacco non-user 1036F Depression Screening Negative 3352F Est Preventative 40 to 64 years [address] HCV Antibody RFX to Quant PCR HgbA1c Influenza immunization administered or previously received 4274F Lipid Panel MA Mamm Screen w/CAD if perf and 3D Edgar Most recent diastolic blood pressure 80-89 mm Hg 3079F Systolic BP <130 mm Hg (Most Recent) 3074F Urine Microalbumin/Creatin ine Ratio 3. Morbid obesity with BMI of 45.0-49.9, adult (E66.01: Morbid (severe) obesity due to excess calories) Diet and exercise advised Ordered: Body Mass Index (BMI) documented 3008F CBC w/ Auto Diff Comprehensive Metabolic Panel Current tobacco non-user 1036F Depression Screening Negative 3352F Est Preventative 40 to 64 years 17517 HCV Antibody RFX to Quant PCR HgbA1c Influenza immunization administered or previously received 4274F Lipid Panel MA Mamm Screen w/CAD if perf and 3D Edgar Most recent diastolic blood pressure 80-89 mm Hg 3079F Systolic BP <130 mm Hg (Most Recent) 3074F Urine Microalbumin/Creatin ine Ratio 4. Former smoker (Z87.891: Personal history of nicotine dependence) Please continue to not smoke Ordered: Body Mass Index (BMI) documented 3008F CBC w/ Auto Diff Comprehensive Metabolic Panel Current tobacco non-user 1036F Depression Screening Negative 3352F Est Preventative 40 to 64 years 83554 HCV Antibody RFX to Quant PCR HgbA1c Influenza immunization administered or previously received 4274F Lipid Panel MA Mamm Screen w/CAD if perf and 3D Edgar Most recent diastolic blood pressure 80-89 mm Hg 3079F Systolic BP <130 mm Hg (Most Recent) 3074F Urine Microalbumin/Creatin ine Ratio 5. COPD without exacerbation (J44.9: Chronic obstructive pulmonary disease, unspecified) No issues at this time. Meds refilled. Lungs sound good Ordered: CBC w/ Auto Diff Comprehensive Metabolic Panel Est Preventative 40 to 64 years 62582 HCV Antibody RFX to Quant PCR HgbA1c Lipid Panel MA Mamm Screen w/CAD if perf and 3D Edgar Urine Microalbumin/Creatin ine Ratio 6. HTN (hypertension) (I10: Essential (primary) hypertension) At goal at this time. Continue on meds as before Ordered: CBC w/ Auto Diff Comprehensive Metabolic Panel Est Preventative 40 to 64 years 85725 HCV Antibody RFX to Quant PCR HgbA1c Lipid Panel MA Mamm Screen w/CAD if perf and 3D Edgar Urine Microalbumin/Creatin ine Ratio 7. Iron deficiency (E61.1: Iron deficiency) Will check labs Ordered: CBC w/ Auto Diff Comprehensive Metabolic Panel Est Preventative 40 to 64 years 57134 HCV Antibody RFX to Quant PCR HgbA1c Lipid Panel MA Mamm Screen w/CAD if perf and 3D Edgar Urine Microalbumin/Creatin ine Ratio 8. Screening mammogram, encounter for (Z12.31: Encounter for screening mammogram for malignant neoplasm of breast) Ordered Ordered: CBC w/ Auto Diff Comprehensive Metabolic Panel Est Preventative 40 to 64 years 98365 HCV Antibody RFX to Quant PCR HgbA1c Lipid Panel Urine Microalbumin/Creatin ine Ratio 9. Type 2 diabetes mellitus (E11.9: Type 2 diabetes mellitus without complications) A1c is ordered. Follow up with Endo Ordered: CBC w/ Auto Diff Comprehensive Metabolic Panel Est Preventative 40 to 64 years 90796 HCV Antibody RFX to Quant PCR HgbA1c Lipid Panel Urine Microalbumin/Creatin ine Ratio Orders: albuterol, 2.5 mg, 3 mL, Inhalation, q6hr for wheezing, 60 EA, Refill(s) 0, [facility] [id number], (more content not included)... Normal [facility] Comment on above: Result Comment: Elec tronically Signed By: Roberto Ramirez MD\Date and Time Signed: 08/24/24 13:26 EST HEMATOLOGYOrdered By: SYSTEM SYSTEM on 08-24-2024 Basophils/100 WBC (Bld) 0.4 % Normal 0.0 - 2.0 % Remisol Heme Basophils/Leukocytes Auto (Bld) [Pure # fraction] 0.1 E9/L Normal 0.0 - 0.2 E9/L Remisol Heme Eosinophils (Bld) [#/Vol] 0.2 E9/L Normal 0.0 - 0.5 E9/L Remisol Heme Eosinophils/100 WBC (Bld) 1.4 % Normal 0.0 - 8.0 % Remisol Heme Erythrocyte distribution width (RBC) [Ratio] 15.2 % High 10.9 - 14.2 % Remisol Heme Hematocrit (Bld) [Volume fraction] 49.0 % High 34.0 - 46.0 % Remisol Heme Hemoglobin (Bld) [Mass/Vol] 15.9 g/dL Normal 12.0 - 16.0 gm/dL Rem[facility] Heme Lymphocytes (Bld) [#/Vol] 4.6 E9/L High 1.0 - 4.0 E9/L Rem[facility] Heme Lymphocytes/100 WBC (Bld) 28.9 % Normal 14.0 - 50.0 % Remisol Heme MCH (RBC) [Entitic mass] 26.2 pg Low 27.0 - 34.0 pg Remisol Heme MCHC (RBC) [Mass/Vol] 32.5 g/dL Normal 31.4 - 36.0 gm/dL Remisol Heme MCV (RBC) [Entitic vol] 80.5 fL Normal 80.0 - 100.0 fL Rem[facility] Heme Monocytes (Bld) [#/Vol] 1.0 E9/L Normal 0.2 - 1.0 E9/L Remisol Heme Monocytes/100 WBC (Bld) 6.6 % Normal 4.0 - 14.0 % Rem[facility] Heme Neutrophils (Bld) [#/Vol] 10.0 E9/L High 2.0 - 7.5 E9/L [facility] Heme Neutrophils/100 WBC (Bld) 62.7 % Normal 36.0 - 75.0 % Rem[facility] Heme Platelet mean volume (Bld) [Entitic vol] 7.7 fL Normal 6.4 - 10.8 fL Rem[facility] Heme Platelets (Bld) [#/Vol] 377.0 E9/L Normal 150. 0 - 500.0 E9/L Rem[facility] Heme RBC (Bld) [#/Vol] 6.1 E12/L High 4.3 - 5.9 E12/L Rem[facility] Heme WBC corrected for nucl RBC Auto (Bld) [#/Vol] 15.9 E9/L High 4.0 - 11.0 E9/L Remisol Heme [id number] 08-24-2024 HbA1c (Bld) [Mass fraction] 7.3 % High <=5.[address] [facility] Comment on above: Performed By: #### 7 [id number] #### [facility] [address] [place] [address] Lipid Panelon 08-24-2024 Cholesterol [Mass/Vol] 254 mg/dL High 120-200 Fi [facility] Comment on above: Performed By: #### 2 [id number] #### [facility] [address] [place] [address] Cholesterol in HDL [Mass/Vol] 52 mg/dL Invalid Interpretation Code [facility] Comment on above: Result Comment: '>= 60 LOW RISK' '<= 40 HIGH RISK' Performed By: #### 2 [id number] #### [facility] [address] [place] [address] Cholesterol in LDL [Mass/Vol] 168 mg/dL High <=[address] [facility] Comment on above: Performed By: #### 2 [id number] #### [facility] [address] [place] [address] Cholesterol in VLDL [Mass/Vol] 75 mg/dL High 7-[address] [facility] Comment on above: Performed By: #### 2 [id number] #### [facility] [address] [place] [address] Triglyceride [Mass/Vol] 375 mg/dL High <=149 F [facility] Comment on above: Performed By: #### 2 [id number] #### [facility] [address] [place] [address] U MA/Cr Ratioon 08-24-2024 Albumin DL <= 20 mg/L (U) [Mass/Vol] mg/dL Normal 0.0-1.[address] [facility] Comment on above: Performed By: #### 1 [id number] #### [facility] [address] [place] [address] Albumin/Creatinine DL <= 20 mg/L (U) [Mass ratio] NOT CALCULATED Invalid Interpretation Code .0-30.[address] [facility] Comment on above: Result Comment: 30-3 00 mg/g Cr indicates an increased risk for diabetic nephropathy. >300 mg/g Cr is consistent with clinical nephropathy. Performed By: #### 1 [id number] #### [facility] [address] [place] [address] U Creatinine 73.7 mg/dL Invalid Interpretation Code [facility] Comment on above: Performed By: #### 1 [id number] #### [facility] [address] [place] [address] eGFRon 08-24-2024 eGFR 72 mL/min/1.73 m2 Normal >=[address] [facility] Comment on above: Performed By: #### 1 [id number] #### [facility] [address] [place] [address] Family Medicine Office/Clini c Noteon 04-14-2024 Family Medicine Office/Clinic Note Family Medicine Office/Clinic Note HPI Staff Kassi is a 63 year old female presenting for sick visit Respiratory C/O: Onset: 1 week Body aches: no Chest congestion: yes Chills: no Cough: yes Sputum production: yes green Sore throat: started this morning but has been cough hard Ear complaints: no Eye itching/watering: no Fever: yes Headache: yes Nasal congestion: yes Nasal discharge: yes post nasal drip Poor appetite: yes Reduced activity: yes Sinus pain/pressure: no Sneezing: no Wheezing: yes Ill contacts: yes daughter has pneumonia Remedies tried: none Questions/Concerns: Pt states she feels like she has pneumonia she feels same way she did last year when she had it. Pt did do a breathing treatment yesterday and did feel better after. Will feel short of breathe when up and walking Needs refill on albuterol for nebulizer History of Present Illness pt presents today for cough, shortness of breath and wheezing Review of Systems PHQ Score Initial Depression Screen Score: 0 SCORE Physical Exam Vitals & Measurements T: 36.6 ?C(Tympanic) HR: 68(Peripheral) RR: 20 BP: 136/68 SpO2: 92% HT: 66 in HT: 166.5 cm WT: 134.7 kg WT: 296.34 lb BMI: 48.59 General: alert, no acute distress ENMT: oral mucosa moist, no pharyngeal erythema or exudate Cardiovascular: regular rate and rhythm, normal peripheral perfusion Respiratory: Lungs expiratory wheezes, respirations non labored Extremities: no deformity, no trauma Neurological: oriented x 4, LOC appropriate for age, CN II-XII intact, motor strength equal & normal bilaterally, speech normal Assessment/Plan 1. Wheezing, (R06.2: Wheezing)Wheezing wheezing noted throughout all lung craft will send levofloxacin and albuterol for nebulizer. 80 mg Kenalog given in office today. had pneumonia a year ago and feesl the same way she did then but did not want to go to the hospital. Ordered: triamcinolone, 80 mg = 2 mL, Injection, IntraMuscular, Once, Stop date 04/14/24 9:25:00 EDT, Routine, Start date 04/14/24 9:25:00 EDT, 04/14/24 9:25:00 EDT 2. Cough (R05.9: Cough, unspecified) cough is worsening 3. Former smoker (Z87.891: Personal history of nicotine dependence) continue not smoking Ordered: triamcinolone, 80 mg = 2 mL, Injection, IntraMuscular, Once, Stop date 04/14/24 9:25:00 EDT, Routine, Start date 04/14/24 9:25:00 EDT, 04/14/24 9:25:00 EDT 4. BMI 45.0-49.9, adult (Z68.42: Body mass index [BMI] 45.0-49.9, adult) BMI education given Ordered: triamcinolone, 80 mg = 2 mL, Injection, IntraMuscular, Once, Stop date 04/14/24 9:25:00 EDT, Routine, Start date 04/14/24 9:25:00 EDT, 04/14/24 9:25:00 EDT Orders: albuterol, 2.5 mg, 3 mL, Inhalation, q6hr for wheezing, 60 EA, Refill(s) 0, [facility] #[id number], 166.5, cm, 04/14/24 9:09:00 EDT, Height/Length Dosing, 134.7, kg, 04/14/24 9:09:00 EDT, Weight Dosing levofloxacin, 500 mg = 1 tab(s), Oral, q24hr, X 7 day(s), # 7 tab(s), Refills(s) 0, Pharmacy: [facility] #[id number], 166.5, cm, 04/14/24 9:09:00 EDT, Height/Length Dosing, 134.7, kg, 04/14/24 9:09:00 EDT, Weight Dosing Follow-up No qualifying data available Problem List/Past Medical History Ongoing BMI 45.0-49.9, adult COPD without exacerbation Cough Former smoker Hip pain, right HTN (hypertension) Iron deficiency Morbid obesity Personal history of colonic polyps Screening for colorectal cancer Screening for malignant neoplasm of colon Skin tag Type 2 diabetes mellitus Vaginal yeast infection Wheezing Historical No qualifying data Procedure/Surgical History Excision of mass (10/29/2023), Bunionectomy, Colonoscopy, Colonoscopy, Colonoscopy, Correction of hammer toe, AMEE BSO - Total abdominal hysterectomy and bilateral salpingo-oophorectom y, Tonsillectomy and adenoidectomy. Medications albuterol 0.083% Inh Mya 3 mL, 2.5 mg= 3 mL, Inhalation, q6hr, PRN atorvastatin 20 mg Tab glimepiride 4 mg Tab, BID Handicap Placard, 5 years., See Instructions Incruse Ellipta 62.5 mcg inhalation powder Jardiance 25 mg oral tablet levofloxacin 500 mg Tab, 500 mg= 1 tab(s), Oral, q24hr lisinopril 20 mg Tab, 20 mg= 1 [...] 30 days ago Smokeless Tobacco Use:. Cigarettes, Vaping, 2 per day. Started age 14.0 Years. Stopped age 56 Years. Household tobacco concerns: No., 04/14/2024 Family History Cardiac arrest: Father. Diverticulitis of colon: Brother. Prima (more content not included)... Normal [facility] Comment on above: Result Comment: Elec tronically Signed By: Ginny Woods\.br\Date and Time Signed: 04/14/24 09:41 EDT Glucose Glucometer (BldC) [M ass/Vol]Ordered By: Britton Sainz on 10-28-2023 Glucose [Mass/Vol] 170 mg/dL [facility] Comment on above: Random Glucose Refer ence Range is dependent on time and content of last meal. Glucose of more than 200 mg/dL in a nonstressed, ambulatory subject supports the diagnosis of Diabetes Mellitus. Glucose Poct Glucometerson 0 10-28-2023 Glucose [Mass/Vol] 170 mg/dL Normal [facility] Comment on above: Result Comment: [place] Glucose Reference Range is dependent on time and content of last meal. Glucose of more than 200 mg/dL in a nonstressed, ambulatory subject supports the diagnosis of Diabetes Mellitus. PERFORMED BY: [facility] [address] [place] [address] PATHOLOGIST FIXING MACHINE OPERATOR MIGUEL FOLEY M.D. Performed By: #### G LUFAIZAN #### Point of Care testing , Commemt1 Glu2: Cleaned Meter Normal [facility] Comment on above: Result Comment: PERF ORMED BY: [facility] [address] [place] [address] PATHOLOGIST FIXING MACHINE OPERATOR MIGUEL FOLEY M.D. Performed By: #### G LULS #### Point of Care testing , Glucose [Mass/Vol] 217 mg/dL Normal [facility] Comment on above: Result Comment: [place] Glucose Reference Range is dependent on time and content of last meal. Glucose of more than 200 mg/dL in a nonstressed, ambulatory subject supports the diagnosis of Diabetes Mellitus. Performed By: #### G LULS #### Point of Care testing , Obey 10-28-2023 L Specimen: [id number] Received: 10/28/23 Status: GISEL [place] Num: [id number] Spec Type: Surgical Subm Dr: Britton Sainz MD Tissues: A Skin-Other than Cyst, tag, debridement or plastic repair (RT THIGH MASS) B Skin-Other than Cyst, tag, debridement or plastic repair (LT LABIAL MASS) C Skin-Other than Cyst, tag, debridement or plastic repair (LT CHEST MASS) Procedures: S 100, HE/3, Gross/Micro L4/3, AE1-AE3, Ki-67, SOX-10 Age/ Patient Sex Location Account Attending Physician Kassi Meng 63/F [place] [id number] Britton Sainz MD SPEC NUM: [id number] RECD: 10/28/23 STATUS: GISEL [place] NUM: [id number] NANNETTE: 10/28/[address] [facility] [address]: Britton Sainz MD ENTERED: 10/28/23 [facility] DR: SPEC TYPE: Surgical DEPT: S [...] submitted in one cassette labeled B1. Specimen: [id number] Received: 10/28/23 Status: GISEL [place] Num: [id number] Spec Type: Surgical Subm Dr: Britton Sainz MD Tissues: A Skin-Other than Cyst, tag, debridement or plastic repair (RT THIGH MASS) B Skin-Other than Cyst, tag, debridement or plastic repair (LT LABIAL MASS) C Skin-Other than Cyst, tag, debridement or plastic repair (LT CHEST MASS) Procedures: S 100, HE/3, Gross/Micro L4/3, AE1-AE3, Ki-67, SOX-10 Patient: Kassi Meng [id number] (Continued) Specimen: [id number] Received: 10/28/23 (Continued) Gross Description (Continued) Signed (signature on file) Maya Pak MD 11/07/23 2249 Specimen: [id number] Received: 10/28/23 Status: GISEL [place] Num: [id number] Spec Type: Surgical Subm Dr: Britton Sainz MD Tissues: A Skin-Other than Cyst, tag, debridement or plastic repair (RT THIGH MASS) B Skin-Other than Cyst, tag, debridement or plastic repair (LT LABIAL MASS) C Skin-Other than Cyst, tag, debridement or plastic repair (LT CHEST MASS) Procedures: S 100, HE/3, Gross/Micro L4/3, AE1-AE3, Ki-67, SOX-10 Patient: Kassi Meng [id number] (Continued) Specimen: [id number] Received: 10/28/23 (Continued) Gross [...] microscopic examination confirms the diagnosis. CPT Codes 46491, 58075g8 Specimen: [id number] Received: 10/28/23 Status: GISEL [place] Num: [id number] Spec Type: Surgical Subm Dr: Britton Sainz MD Tissues: A Skin-Other than Cyst, tag, debridement or plastic repair (RT THIGH MASS) B Skin-Other than Cyst, tag, debridement or plastic repair (LT LABIAL MASS) C Skin-Other than Cyst, tag, debridement or plastic repair (LT CHEST MASS) Procedures: S 100, HE/3, Gross/Micro L4/3, AE1-AE3, Ki-67, SOX-10 --------- (more content not included)... Normal [facility] No Panel InformationOrdered By: Britton Sainz on 10-28-2023 Bedside Glucose Comment Glu2: cleaned meter [facility] Basic Metabolic Panelon 09-18 Anion gap [Moles/Vol] 10.3 mmol/L Normal 6.0-15.0 [facility] Comment on above: Performed By: #### B MP, CBC #### [facility] [address] [place] [address] [place] Calcium [Mass/Vol] 9.3 mg/dL Normal 8.6-10.3 [facility] Comment on above: Result Comment: PERF ORMED BY: [facility] [address] [place] [address] PATHOLOGIST FIXING MACHINE OPERATOR MIGUEL FOLEY M.D. Performed By: #### B MP, CBC #### [facility] [address] [place] [address] [place] Chloride [Moles/Vol] 103 mmol/L Normal 98-107 [facility] Comment on above: Performed By: #### B MP, CBC #### [facility] [address] [place] [id number] [place] CO2 [Moles/Vol] 27.2 mmol/L Normal 21.0-31.0 [facility] Comment on above: Performed By: #### B MP, CBC #### [facility] [address] [place] [address] [place] Creatinine [Mass/Vol] 0.65 mg/dL Normal 0.60-1.20 [facility] Comment on above: Performed By: #### B MP, CBC #### [facility] [address] [place] [address] [place] GFR/1.73 sq M.predicted MDRD (S/P/Bld) [Vol rate/Area] mL/min/{1.73_m2} [facility] Comment on above: Performed By: #### B MP, CBC #### [facility] [address] [place] [address] [place] Glucose [Mass/Vol] 153 mg/dL High 70-100 [facility] Comment on above: Result Comment: [place] Glucose Reference Range is dependent on time and content of last meal. Glucose of more than 200 mg/dL in a nonstressed, ambulatory subject supports the diagnosis of Diabetes Mellitus. ADA recommended reference range Performed By: #### B MP, CBC #### [facility] [address] Potassium [Moles/Vol] 4.5 mmol/L Normal 3.5-5.1 [facility] Comment on above: Performed By: #### B MP, CBC #### [facility] [address] Sodium [Moles/Vol] 136 mmol/L Normal 136-145 [facility] Comment on above: Performed By: #### B MP, CBC #### [facility] [address] Urea nitrogen [Mass/Vol] 15 mg/dL Normal 7-[address] [facility] Comment on above: Performed By: #### B MP, CBC #### [facility] [address] Basophils Auto (Bld) [#/Vol] Ordered By: Britton Sainz on 10-14-2023 Basophils (Bld) [#/Vol] 0.1 10*3/uL 0.0-0.[address] [facility] Basophils/100 WBC Auto (Bld) Ordered By: Britton Sainz on 10-14-2023 Basophils/100 WBC (Bld) 0.7 % . F [facility] Calcium [Mass/volume] in Ser um or PlasmaOrdered By: Britton Sainz on 10-14-2023 Calcium [Mass/Vol] 9.3 mg/dL 8.6-10.3 [facility] Carbon dioxide, total [Moles /volume] in Serum or PlasmaOrdered By: Britton Sainz on 10-14-2023 CO2 [Moles/Vol] 27.2 mmol/L 21.0-31.0 [facility] Chloride [Moles/volume] in S nadege or PlasmaOrdered By: Britton Sainz on 10-14-2023 Chloride [Moles/Vol] 103 mmol/L 98-107 [facility] Complete Blood Count Auto Di ffon 10-14-2023 Basophils (Bld) [#/Vol] 0.1 10*3/uL Normal 0.0-0.[address] [facility] Comment on above: Result Comment: PERF ORMED BY: [place] [address] PATHOLOGIST FIXING MACHINE OPERATOR MIGUEL FOLEY M.D. Performed By: #### B MP, CBC #### [address] Basophils/100 WBC (Bld) 0.7 % Normal . F [facility] Comment on above: Performed By: #### B MP, CBC #### [address] Eosinophils (Bld) [#/Vol] 0.2 10*3/uL Normal 0.0-0.[address] [facility] Comment on above: Performed By: #### B MP, CBC #### [address] Eosinophils/100 WBC (Bld) 1.9 % Normal . [facility] Comment on above: Performed By: #### B MP, CBC #### [address] Erythrocyte distribution width (RBC) [Ratio] 14.9 % Normal 11.9-15.[address] [facility] Comment on above: Performed By: #### B MP, CBC #### [address] Hematocrit (Bld) [Volume fraction] 46.4 % Normal 34.0-46.[address] [facility] Comment on above: Performed By: #### B MP, CBC #### [place] [address] [place] Hemoglobin (Bld) [Mass/Vol] 15.0 g/dL Normal 11.8-15.[address] [facility] Comment on above: Performed By: #### B MP, CBC #### [address] Lymphocytes (Bld) [#/Vol] 3.7 10*3/uL Normal 1.00-4.[address] [facility] Comment on above: Performed By: #### B MP, CBC #### [address] Lymphocytes/100 WBC (Bld) 32.7 % Normal . [facility] Comment on above: Performed By: #### B MP, CBC #### [address] MCH (RBC) [Entitic mass] 25.5 pg Normal 24.7-34.[address] [facility] Comment on above: Performed By: #### B MP, CBC #### [address] MCV (RBC) [Entitic vol] 79.1 fL Low 80-100 [facility] Comment on above: Performed By: #### B MP, CBC #### [address] Mean Corpuscular HGB Conc 32.3 g/dL Normal 32.0-35.[address] [facility] Comment on above: Performed By: #### B MP, CBC #### [address] Monocytes (Bld) [#/Vol] 0.5 10*3/uL Normal 0.0-0.[address] [facility] Comment on above: Performed By: #### B MP, CBC #### [place] [address] [place] Monocytes/100 WBC (Bld) 4.5 % Normal . [facility] Comment on above: Performed By: #### B MP, CBC #### [address] Neutrophils (Bld) [#/Vol] 6.7 10*3/uL Normal 1.8-7.[address] [facility] Comment on above: Performed By: #### B MP, CBC #### [facility] [address] Neutrophils/100 WBC (Bld) 60.2 % Normal . [facility] Comment on above: Performed By: #### B MP, CBC #### [facility] [address] NRBC% 0.1 /100{WBC} Normal 0-0.[address] [facility] Comment on above: Performed By: #### B MP, CBC #### [facility] [address] Platelet mean volume (Bld) [Entitic vol] 7.6 fL Normal 6.3-10.[address] [facility] Comment on above: Performed By: #### B MP, CBC #### [address] Platelets (Bld) [#/Vol] 303 10*3/uL Normal 150-[address] [facility] Comment on above: Performed By: #### B MP, CBC #### [facility] [address] [place] [address] RBC (Bld) [#/Vol] 5.86 10*6/uL High 3.60-5.00 [facility] Comment on above: Performed By: #### B MP, CBC #### [address] WBC (Bld) [#/Vol] 11.2 10*3/uL Normal 3.8-11.6 [facility] Comment on above: Performed By: #### B MP, CBC #### [address] Creatinine [Mass/volume] in Serum or PlasmaOrdered By: Britton Sainz on 10-14-2023 Creatinine [Mass/Vol] 0.65 mg/dL 0.60-1.20 [facility] ECG 12 lead ECGon 10-14-2023 ECG 12 lead ECG [facility] Main [place] [address] [place] [address] Electrocardiograph Report Signed Patient: Kassi Meng MR#: [id number] 0 : 1960 Acct:[id number] Age/Sex: 63 / F ADM Date: 10/14/23 Loc: Room: Type: [facility] Attending Dr: Britton Sainz MD Ordering Provider: Britton Sainz MD Date of Service: 10/14/23 ECG/ECG 12 [...] ECG No previous ECGs available Confirmed by JUAN CARLOS LUNA DO ([id number]) on 10/14/2023 3:35:35 PM Referred By: NIKOLAY Electronically Signed By:JUAN CARLOS LUNA DO Transcribed By: MUS Signed By Juan Carlos Luna DO 10/14 [address] [facility] Eosinophils Auto (Bld) [#/Vo l]Ordered By: Britton Sainz on 10-14-2023 Eosinophils (Bld) [#/Vol] 0.2 10*3/uL 0.0-0.[address] [facility] Eosinophils/100 WBC Auto (Bl d)Ordered By: Britton Sainz on 10-14-2023 Eosinophils/100 WBC (Bld) 1.9 % . [facility] Erythrocyte distribution wid th Auto (RBC) [Ratio]Ordered By: Britton Sainz on 10-14-2023 Erythrocyte distribution width (RBC) [Ratio] 14.9 % 11.9-15.[address] [facility] [facility] [facility] Glucose [Mass/volume] in Ser um or PlasmaOrdered By: Britton Sainz on 10-14-2023 Glucose [Mass/Vol] 153 mg/dL 70-100 [facility] Comment on above: ADA recommended refe rence rangeRandom Glucose Reference Range is dependent on time and content of last meal. Glucose of more than 200 mg/dL in a nonstressed, ambulatory subject supports the diagnosis of Diabetes Mellitus. Hematocrit Auto (Bld) [Volum e fraction]Ordered By: Britton Sainz on 10-14-2023 Hematocrit (Bld) [Volume fraction] 46.4 % 34.0-46.[address] [facility] Hemoglobin [Mass/volume] in BloodOrdered By: Britton Sainz on 10-14-2023 Hemoglobin (Bld) [Mass/Vol] 15.0 g/dL 11.8-15.[address] [facility] Leukocytes [#/volume] correc mc for nucleated erythrocytes in Blood by Automated counOrdered By: Britton Sainz on 10-14-2023 WBC corrected for nucl RBC Auto (Bld) [#/Vol] 11.2 10*3/uL 3.8-11.[address] [facility] Lymphocytes Auto (Bld) [#/Vo l]Ordered By: Britton Sainz on 10-14-2023 Lymphocytes (Bld) [#/Vol] 3.7 10*3/uL 1.00-4.[address] [facility] Lymphocytes/100 WBC Auto (Bl d)Ordered By: Britton Sainz on 10-14-2023 Lymphocytes/100 WBC (Bld) 32.7 % . [facility] MCH Auto (RBC) [Entitic mass ]Ordered By: Britton Sainz on 10-14-2023 MCH (RBC) [Entitic mass] 25.5 pg 24.7-34.[address] [facility] MCHC Auto (RBC) [Mass/Vol]Or dered By: Britton Sainz on 10-14-2023 MCHC (RBC) [Mass/Vol] 32.3 g/dL 32.0-35.0 [facility] MCV Auto (RBC) [Entitic vol] Ordered By: Britton Sainz on 10-14-2023 MCV (RBC) [Entitic vol] 79.1 fL 80-100 [facility] Monocytes Auto (Bld) [#/Vol] Ordered By: Britton Sainz on 10-14-2023 Monocytes (Bld) [#/Vol] 0.5 10*3/uL 0.0-0.[address] [facility] Monocytes/100 WBC Auto (Bld) Ordered By: Britton Sainz on 10-14-2023 Monocytes/100 WBC (Bld) 4.5 % . F [facility] Neutrophils Auto (Bld) [#/Vo l]Ordered By: Britton Sainz on 10-14-2023 Neutrophils (Bld) [#/Vol] 6.7 10*3/uL 1.8-7.[address] [facility] Neutrophils/100 WBC Auto (Bl d)Ordered By: Britton Sainz on 10-14-2023 Neutrophils/100 WBC (Bld) 60.2 % . [facility] No Panel InformationOrdered By: Britton Sainz on 10-14-2023 Estimated GFR (CKD-EPI) > 60.0 mL/Min [facility] Creatinine Clearance (Chem N/A [facility] Nucleated erythrocytes [Pres ence] in Blood by Automated countOrdered By: Britton Sainz on 10-14-2023 Nucleated RBC Auto Ql (Bld) 0.1 /100{WBC} 0-0.[address] [facility] Platelet mean volume Auto (B ld) [Entitic vol]Ordered By: Britton Sainz on 10-14-2023 Platelet mean volume (Bld) [Entitic vol] 7.6 fL 6.3-10.[address] [facility] Platelets Auto (Bld) [#/Vol] Ordered By: Britton Sainz on 10-14-2023 Platelets (Bld) [#/Vol] 303 10*3/uL 150-[address] [facility] Potassium [Moles/volume] in Serum or PlasmaOrdered By: Britton Sainz on 10-14-2023 Potassium [Moles/Vol] 4.5 mmol/L 3.5-5.1 [facility] RBC Auto (Bld) [#/Vol]Ordere d By: Britton Sainz on 10-14-2023 RBC (Bld) [#/Vol] 5.86 10*6/uL 3.60-5.00 [facility] Serum or plasma anion gap de terminationOrdered By: Britton Sainz on 10-14-2023 Anion gap [Moles/Vol] 10.3 mmol/L 6.0-15.0 [facility] Sodium [Moles/volume] in Ser um or PlasmaOrdered By: Britton Sainz on 10-14-2023 Sodium [Moles/Vol] 136 mmol/L 136-145 [facility] Urea nitrogen [Mass/volume] in Serum or PlasmaOrdered By: Britton Sainz on 10-14-2023 Urea nitrogen [Mass/Vol] 15 mg/dL 7-[address] [facility] WBC Auto (Bld) [#/Vol]Ordere d By: Britton Sainz on 10-14-2023 WBC (Bld) [#/Vol] 11.2 10*3/uL 3.8-11.6 [facility] CHEMISTRYOrdered By: SYSTEM SYSTEM on 07-08-2023 Albumin [Mass/Vol] 4.1 g/dL Normal 3.3 - 5.0 gm/dL [facility] Albumin/Globulin [Mass ratio] 1.1 {ratio} Normal 1.1 - 2.2 [facility] ALP [Catalytic activity/Vol] 79 [iU]/d Normal 21 - 98 Int._Unit/L [facility] ALT No additional P-5'-P [Catalytic activity/Vol] 29 [iU]/d Normal 6 - 46 Int._Unit/L [facility] Anion gap [Moles/Vol] 15 mmol/L Normal 6 - 16 mEq/L [facility] AST [Catalytic activity/Vol] 24 [iU]/d Normal 5 - 43 Int._Unit/L [facility] Bilirubin [Mass/Vol] 0.2 mg/dL Normal 0.0 - 1 .1 mg/dL [facility] Calcium [Mass/Vol] 9.1 mg/dL Normal 8.9 - 11. 1 mg/dL [facility] Chloride [Moles/Vol] 102 mmol/L Normal 101 - 1 11 mmol/L [facility] CO2 [Moles/Vol] 23 mmol/L Normal 21 - 31 mmol/L [facility] Creatinine [Mass/Vol] 0.7 mg/dL Normal 0.5 - 1.3 mg/dL [facility] GFR/1.73 sq M.predicted among non-blacks MDRD (S/P/Bld) [Vol rate/Area] 98 mL/min/1.73 m2 Normal >=59mL/min/1 .73 m2 FT Chem S Globulin (S) [Mass/Vol] 3.6 g/dL Normal 1.4 - 4.0 gm/dL [facility] Glucose [Mass/Vol] 138 mg/dL Normal 55 - 199 mg/dL [facility] Potassium [Moles/Vol] 4.4 mmol/L Normal 3.5 - 5.3 mmol/L [facility] Protein [Mass/Vol] 7.7 g/dL Normal 6.0 - 7.8 gm/dL [facility] Sodium [Moles/Vol] 136 mmol/L Normal 135 - 145 mmol/L [facility] Urea nitrogen [Mass/Vol] 15 mg/dL Normal 5 - 21 mg/dL [facility] Urea nitrogen/Creatinine [Mass ratio] 21 mg/mg High 10 - 20 [facility] HEMATOLOGYOrdered By: SYSTEM SYSTEM on 07-08-2023 Basophils/100 [...] 45.8 % Normal 36.0 - 75.0 % [facility] Neutrophils/Leukocytes Auto (Bld) [Pure # fraction] 4.2 E9/L Normal 2.0 - 7.5 E9/L [facility] HEMATOLOGYOrdered By: Elle Pittman on 07-08-2023 Erythrocyte distribution width (RBC) [Ratio] 15.6 % High 10.9 - 14.2 % [facility] Hematocrit (Bld) [Volume fraction] 47.2 % High 34.0 - 46.0 % [facility] Hemoglobin (Bld) [Mass/Vol] 15.2 g/dL Normal 12.0 - 16.0 gm/dL [facility] MCH (RBC) [Entitic mass] 25.6 pg Low 27.0 - 34.0 pg [facility] MCHC (RBC) [Mass/Vol] 32.1 g/dL Normal 31.4 - 36.0 gm/dL [facility] MCV (RBC) [Entitic vol] 79.8 fL Low 80.0 - 100.0 fL [facility] Platelet mean volume (Bld) [Entitic vol] 8.1 fL Normal 6.4 - 10.8 fL [facility] Platelets (Bld) [#/Vol] 297.0 E9/L Normal 150. 0 - 500.0 E9/L [facility] RBC (Bld) [#/Vol] 5.9 E12/L Normal 4.3 - 5.9 E12/L [facility] WBC corrected for nucl RBC Auto (Bld) [#/Vol] 9.1 E9/L Normal 4.0 - 11.0 E9/L [facility] LIPID PROFILEon 12-22-2022 CHOL-HDL RATIO NORM SEE BELOW Normal [facility] Comment on above: Result Comment: 3.3 - 4.4 LOW RISK 4.4 - 7.1 AVERAGE RISK 7.1 - 11.0 MODERATE RISK >11.0 HIGH RISK Performed By: #### R ENAL, LIPID #### [facility] [address] [address] [address] Martha Sutherland Cholesterol [Mass/Vol] 253 mg/dL Critically high <=200 [facility] Comment on above: Performed By: #### R ENAL, LIPID #### [facility] [address] [address] [address] Martha Sutherland Cholesterol in HDL [Mass/Vol] 45 mg/dL Normal 40-60 [facility] Comment on above: Performed By: #### R ENAL, LIPID #### [facility] [address] [address] [address] Martha Sutherland Cholesterol in LDL [Mass/Vol] 153.4 mg/dL Normal [facility] Comment on above: Performed By: #### R ENAL, LIPID #### [facility] [address] [address] [address] Martha Sutherland Cholesterol.total/Liyah sterol in HDL [Mass ratio] 5.6 {ratio} Normal [facility] Comment on above: Performed By: #### R ENAL, LIPID #### [facility] [address] [place] [address] Dr. Martha Sutherland HDL NORMAL > or = 60 mg/dl - LOW CARDIOVASCULAR RISK <40 mg/dl - HIGH CARDIOVASCULAR RISK Normal [facility] Comment on above: Performed By: #### R ENAL, LIPID #### [facility] [address] [address] [address] Martha Sutherland LDL CALC NORMAL SEE BELOW Normal [facility] Comment on above: Result Comment: <100 mg/dl OPTIMAL 100 - 129 mg/dl NEAR OR ABOVE OPTIMAL 130 - 159 mg/dl BORDERLINE HIGH 160 - 189 mg/dl HIGH >190 mg/dl VERY HIGH Performed By: #### R ENAL, LIPID #### [facility] [address] [address] [address] Martha Sutherland Triglyceride [Mass/Vol] 273 mg/dL Critically high <=150 [facility] Comment on above: Performed By: #### R ENAL, LIPID #### [facility] [address] [place] [address] Dr. Martha Sutherland VLDL CALC 54.6 mg/dL Normal [facility] Comment on above: Performed By: #### R ENAL, LIPID #### [facility] [address] [address] [address] Martha Sutherland MICROALB CREAT RATIO RANDOMo n 12-22-2022 mALB 2.0 mg/L Normal <=30.0 [facility] Comment on above: Performed By: #### M CRR #### [facility] [address] [address] [address] Martha Sutherland MALB CR RATIO 28.7 mg/g Normal 0.0-29.9 [facility] Comment on above: Performed By: #### M CRR #### [facility] [address] [place] [address] Dr. Martha Sutherland MALB CR RATIO RANGE SEE BELOW Normal [facility] Comment on above: Result Comment: NO M ICROALBUMINURIA 0-29 MG/G CLINICAL MICROALBUMINURIA 30-300 MG/G MACROALBUMINURIA >300 MG/G Performed By: #### M CRR #### [facility] [address] [place] [address] Dr. Martha Sutherland URINE CREAT 69.72 mg/dL Normal 20.00-300.00 [facility] Comment on above: Performed By: #### M CRR #### [facility] [address] [address] [address] Martha Sutherland RENAL FUNCTION PANELon 12-22 Albumin [Mass/Vol] 3.6 g/dL Normal 3.4-5.0 [facility] Comment on above: Performed By: #### R ENAL, LIPID #### [facility] [address] [address] [address] Martha Sutherland Calcium [Mass/Vol] 9.2 mg/dL Normal 8.5-10.1 [facility] Comment on above: Performed By: #### R ENAL, LIPID #### [facility] [address] [place] [address] Dr. Martha Sutherland Chloride [Moles/Vol] 102 mmol/L Normal 98-107 [facility] Comment on above: Performed By: #### R ENAL, LIPID #### [facility] [address] [address] [address] Martha Sutherland CO2 [Moles/Vol] 29.6 mmol/L Normal 21.0-32.0 [facility] Comment on above: Performed By: #### R ENAL, LIPID #### [facility] [address] [place] [address] Dr. Martha Sutherland Creatinine [Mass/Vol] 0.76 mg/dL Normal 0.55-1.02 [facility] Comment on above: Performed By: #### R ENAL, LIPID #### [facility] [address] [address] [address] Martha Sutherland EGFR-AF MALIAN >60 Normal >=60 [facility] Comment on above: Performed By: #### R ENAL, LIPID #### [facility] [address] [place] [address] Dr. Martha Sutherland EGFR-NON AF MALIAN >60 Normal >=60 [facility] Comment on above: Performed By: #### R ENAL, LIPID #### [facility] [address] [place] [address] Dr. Martha Sutherland Glucose [Mass/Vol] 212 mg/dL Critically high 74-106 [facility] Comment on above: Performed By: #### R ENAL, LIPID #### [facility] [address] [place] [address] Dr. Martha Sutherland Phosphate [Mass/Vol] 3.3 mg/dL Normal 2.6-4.7 [facility] Comment on above: Performed By: #### R ENAL, LIPID #### [facility] [address] [place] [address] Dr. Martha Sutherland Potassium [Moles/Vol] 5.0 mmol/L Normal 3.5-5.1 [facility] Comment on above: Performed By: #### R ENAL, LIPID #### [facility] [address] [place] [address] Dr. Martha Sutherland Sodium [Moles/Vol] 140 mmol/L Normal 136-145 [facility] Comment on above: Performed By: #### R ENAL, LIPID #### [facility] [address] [place] [address] Dr. Martha Sutherland Urea nitrogen [Mass/Vol] 13.0 mg/dL Normal 7.0-18.0 [facility] Comment on above: Performed By: #### R ENAL, LIPID #### [facility] [address] [address] [address] Martha Sutherland VITAMIN D 25 OHon 12-22-2022 VIT D 25-OH 28.5 ng/mL Normal [facility] Comment on above: Performed By: #### V ITAD #### [facility] [address] [address] [address] Martha Sutherland VIT D RANGES SEE BELOW Normal [facility] Comment on above: Result Comment: <20 ng/mL Vit D deficient 20 - <30 ng/mL Vit D insufficient 30 - 100 ng/mL Vit D sufficient >100 ng/mL Potential Toxicity Performed By: #### V ITAD #### [facility] [address] [address] [address] Martha Sutherland XR LUMBAR SPINE 2-3 [...] FINDINGS: Bones appear osteopenic. There are 5 nry-wwt-zvcfgxz lumbar type vertebral bodies segments noted. Convex right curvature of the thoracolumbar junction. Pedicles appear symmetric. No compression fracture is identified. No malalignment is seen. Hmpr-mz-toezljlu endplate spur along the lumbar spine is noted. Facet disease most pronounced along the lower lumbar spine. Mild calcific plaque in the abdominal aorta is seen. IMPRESSION: 1. Osteopenia. No acute fracture identified. 2. Convex right curvature of the thoracolumbar spine with ksmk-kp-aaglitfx degenerative disc disease. MPH/aw Workstation ID: [id number] Dictated by: BAYLEE TYSON on WedNov 23, 2018 2:09:01 PM EST Transcribed by: SHOAIB TORRES on WedNov 23, 2018 2:34:25 PM EST Finalized by: BAYLEE TYSON on WedNov 23, 2018 2:38:[address] [facility] Comment on above: Order Comment: Reaso n for exam?:lbp radiates down rt side Injury/Trauma or Illness?:Illness/Other How long have you had these symptoms (acute/chronic)?:Chronic History of cancer?:n Surgeries, chemotherapy, or radiation?:n Type of Exam?:Ongoing Additional signs and symptoms?:n XR Lumbar Spine 2-3 Views (S tandard)on 11-23-2018 1. Osteopenia. No acute fracture identified. 2. Convex right curvature of the thoracolumbar spine with eaqv-fp-wqajodbi degenerative disc disease. MPH/aw Workstation ID: [id number] [facility] EXAMINATION: XR LUMBAR SPINE 2-3 VIEWS [...] FINDINGS: Bones appear osteopenic. There are 5 vei-lee-njyzafh lumbar type vertebral bodies segments noted. Convex right curvature of the thoracolumbar junction. Pedicles appear symmetric. No compression fracture is identified. No malalignment is seen. Slyi-uv-euphefyb endplate spur along the lumbar spine is noted. Facet disease most pronounced along the lower lumbar spine. Mild calcific plaque in the abdominal aorta is seen. [facility] Interface, Rad In [place] Speechq - 11/23/2018 2:41 PM EST EXAMINATION: XR [...] FINDINGS: Bones appear osteopenic. There are 5 npm-oze-qlytbih lumbar type vertebral bodies segments noted. Convex right curvature of the thoracolumbar junction. Pedicles appear symmetric. No compression fracture is identified. No malalignment is seen. Ulcs-re-utmtizaw endplate spur along the lumbar spine is noted. Facet disease most pronounced along the lower lumbar spine. Mild calcific plaque in the abdominal aorta is seen. IMPRESSION: 1. Osteopenia. No acute fracture identified. 2. Convex right curvature of the thoracolumbar spine with oydr-iz-nngbbmqo degenerative disc disease. MPH/aw Workstation ID: [id number] [facility] Vital Signs Date Time Vital Sign Value Performing Clinician Facility 02-14-2025 09:49-0400 Body height 167.6 cm Cipriano Max MD Work Phone: [facility] 02-14-2025 09:49-0400 Body mass index (BMI) [Ratio] 47.45 kg/m2 Cipriano Max MD Work Phone: [facility] 02-14-2025 09:49-0400 Body weight 133.36 kg Cipriano Max MD Work Phone: [facility] 02-14-2025 09:49-0400 Diastolic blood pressure 64 mm[Hg] Cipriano Max MD Work Phone: [facility] 02-14-2025 09:49-0400 Heart rate 84 /min Cipriano Max MD Work Phone: [facility] 02-14-2025 09:49-0400 Respiratory rate 18 /min Cipriano Max MD Work Phone: [facility] 02-14-2025 09:49-0400 SaO2% (BldA) [Mass fraction] 99 % Cipriano Mxa MD Work Phone: [facility] 02-14-2025 09:49-0400 Systolic blood pressure 120 mm[Hg] Cipriano Max MD Work Phone: [facility] 10-04-2024 11:46-0500 Body height 167.6 cm Cipriano Max MD Work Phone: [facility] 10-04-2024 11:46-0500 Body mass index (BMI) [Ratio] 47.94 kg/m2 Cipriano Max MD Work Phone: [facility] 10-04-2024 11:46-0500 Body weight 134.72 kg Cipriano Max MD Work Phone: [facility] 10-04-2024 11:46-0500 Diastolic blood pressure 72 mm[Hg] Cipriano Max MD Work Phone: [facility] 10-04-2024 11:46-0500 Heart rate 88 /min Cipriano Max MD Work Phone: [facility] 10-04-2024 11:46-0500 Respiratory rate 18 /min Cipriano Max MD Work Phone: [facility] 10-04-2024 11:46-0500 Systolic blood pressure 150 mm[Hg] Cipriano Max MD Work Phone: [facility] 11-30-2023 10:10-0500 Body height 167.6 cm Abhilash Maza DPM Work Phone: [facility] 11-30-2023 10:10-0500 Body mass index (BMI) [Ratio] 48.74 kg/m2 Abhilash Maza DPM Work Phone: [facility] 11-30-2023 10:10-0500 Body weight 136.99 kg Abhilash Maza DPM Work Phone: [facility] 10-28-2023 10:50-0500 Diastolic blood pressure 83 mm[Hg] MD Roberto Ramirez Work Phone: [facility] 10-28-2023 10:50-0500 Heart rate 68 /min MD Roberto Ramirez Work Phone: [facility] 10-28-2023 10:50-0500 Respiratory rate 18 /min MD Roberto Ramirez Work Phone: [facility] 10-28-2023 10:50-0500 SaO2% (BldA) [Mass fraction] 94 % MD Roberto Ramirez Work Phone: [facility] 10-28-2023 10:50-0500 Systolic blood pressure 164 mm[Hg] MD Roberto Ramirez Work Phone: [facility] 10-28-2023 10:20-0500 Inhaled oxygen flow rate 8 L/min MD Roberto Ramirez Work Phone: [facility] 10-28-2023 09:11-0500 Body height 167.64 cm MD Roberto Ramirez Work Phone: [facility] 10-28-2023 09:11-0500 Body mass index (BMI) [Ratio] 49.1 kg/m2 MD Roberto Ramirez Work Phone: [facility] 10-28-2023 09:11-0500 Body weight 138 kg MD Roberto Ramirez Work Phone: [facility] 10-28-2023 07:23-0500 Body temperature 98 [degF] MD Roberto Ramirez Work Phone: [facility] 08-25-2023 15:05-0500 Blood Pressure Location Caden ROLL[facility] [place] 08-25-2023 15:05-0500 Diastolic blood pressure 66 mm[Hg] Caden ROLLINS [facility] [place] 08-25-2023 15:05-0500 Heart rate 64 /min Caden ROLLINS [facility] [place] 08-25-2023 15:05-0500 Respiratory rate 16 /min Caden ROLLINS [facility] [place] 08-25-2023 15:05-0500 Systolic blood pressure 120 mm[Hg] Caden ROLLINS [facility] [place] Encounters Encounter Date Encounter Type Care Provider Facility Start: 02-22-2025 End: 02-22-2025 ambulatory Roberto Ramirez Facility:[facility] Start: 02-14-2025 End: 02-14-2025 Bertramboo flowsnilesh Max MD Work Phone: [facility] Start: 02-14-2025 End: 02-14-2025 BamNativooo Bergheet Cipriano Max MD Work Phone: [facility] Start: 02-14-2025 End: 02-14-2025 Office outpatient visit 25 minutes Cipriano Max MD Work Phone: [facility] Comment on above: Adrenal gland disord er (CMS/HCC) (Primary Dx); Type 2 diabetes mellitus with hyperglycemia, without long-term current use of insulin ([facility]); Primary hypertension ([facility]/HCC); Vitamin D deficiency; Encounter for dietary consultation; Class 3 severe obesity due to excess calories with serious comorbidity and body mass index (BMI) of 45.0 to 49.9 in adult Start: 02-14-2025 End: 02-14-2025 ambulatory CIPRIANO MAX Not Available Start: 10-04-2024 End: 10-04-2024 BamNativooo Bergheet Cipriano Max MD Work Phone: [facility] Start: 10-04-2024 End: 10-04-2024 [employer] Cipriano Max MD Work Phone: [facility] Start: 10-04-2024 End: 10-04-2024 Office outpatient visit 25 minutes Cipriano Max MD Work Phone: [facility] Comment on above: Type 2 diabetes pedro itus with hyperglycemia, without long-term current use of insulin ([facility]/HCC) (Primary Dx); Adrenal gland disorder (CMS/HCC); Primary hypertension ([facility]); Vitamin D deficiency; Encounter for dietary consultation; Class 3 severe obesity due to excess calories with serious comorbidity and body mass index (BMI) of 45.0 to 49.9 in adult ([facility]/HCC) Start: 10-04-2024 End: 10-04-2024 ambulatory CIPRIANO MAX Not Available Start: 09-12-2024 End: 09-12-2024 ambulatory Roberto Ramirez Facility:[facility] Start: 09-11-2024 End: 09-11-2024 ambulatory Roberto Ramirez Facility: [facility] Start: 08-24-2024 End: 08-24-2024 Lab Drop off [facility] Start: 08-24-2024 End: 08-24-2024 ambulatory Roberto Ramirez [facility] Start: 04-25-2024 End: 04-25-2024 ambulatory Ginny L Paige Facility: [facility] Start: 04-14-2024 End: 04-14-2024 ambulatory Ginny L Paige Facility: [facility] Start: 02-28-2024 End: 02-28-2024 ambulatory ABHILASH MAZA Not Available Start: 11-30-2023 Bamboo flowsheet Abhilash Yin er DPM Work Phone: [facility] Start: 11-30-2023 Bamboo flowsheet Abhilash Yin er DPM Work Phone: [facility] Start: 11-30-2023 End: 11-30-2023 Office outpatient visit 15 minutes Abhilash Maza DPM Work Phone: [facility] Comment on above: Onychomycosis (Prima ry Dx); Dystrophic nail; Pain around toenail; Difficulty walking Start: 10-28-2023 End: 10-28-2023 ambulatory Britton Sainz Facility:[facility] Start: 10-28-2023 End: 10-28-2023 Admission to same day surgery center MD Roberto Ramirez Work Phone: [facility] [place] Start: 10-28-2023 End: 10-28-2023 ambulatory MD Roberto Ramirez Work Phone: [facility] Work Phone: Start: 10-14-2023 End: 10-14-2023 ambulatory Britton Sainz Facility:[facility] Start: 10-14-2023 End: 10-14-2023 ambulatory MD Roberto Ramirez Work Phone: [facility] Work Phone: Start: 10-14-2023 End: 10-14-2023 Patient encounter procedure MD Roberto Ramirez Work Phone: [facility] Work Phone: Start: 08-25-2023 End: 08-25-2023 Patient encounter procedure Caden Hobbs [facility] Nill/Said Tony Start: 07-08-2023 End: 07-08-2023 Lab Drop off [facility] Start: 12-22-2022 End: 12-23-2022 ambulatory CIPRIANO MAX Facility:[facility] Start: 09-22-2022 End: 09-23-[address] KEAGAN GILLILAND Facility:[facility] Start: 11-23-2018 End: 11-24-2018 Patient encounter [facility] Start: 11-23-2018 End: 11-23-2018 [facility] Work Phone: [facility] Comment on above: Low back pain Procedures Date Procedure Procedure Detail Performing Clinician Start: 02-14-2025 Gluc bld gluc mntr d ev cleared fda spec home use Cipriano Max MD Work Phone: Start: 10-04-2024 Gluc bld gluc mntr d ev cleared fda spec home use Cipriano Max MD Work Phone: Start: 10-29-2023 Excision of mass Roberto Ramirez Comment on above: Dr Sainz Start: 10-28-2023 Excision of cyst MD Dao Ramirez Work Phone: Start: 05-14-2023 Mammography Abhilash simmons DPM Work Phone: Start: 11-23-2018 Radex spine lumbosac ral 2/3 views External Transcribed Colonoscopy Caden ROLLINS Excision of bunion Caden HERNANDEZ Hammer toe operation Caden ROLLINS Surgical procedure Roberto Beverley johns Tonsillectomy and adenoidectomy Roberto Ramirez Total abdominal hysterectomy with bilateral salpingo-oophorectomy Roberto Ramirez Plan of Treatment Date Care Activity Detail Author Start: 06-13-2025 End: 06-13-2025 Patient encounter procedure 06/13/2025 9:50 AM EDT Office Visit [facility] [address] [place] [phone] Cipriano Max MD [address] [place] [address] [facility] Start: 02-14-2025 End: 02-14-2026 25-hydroxyvitamin D3 [Mass/volume] in Serum or Plasma Vitamin D 25 hydroxy Total Lab Routine Type 2 diabetes mellitus with hyperglycemia, without long-term current use of insulin ([facility] Expected: 02/14/2025 (Approximate), Expires: 02/14/2026 [facility] Comment on above: Expected: 02/14/2025 (Approximate), Expires: 02/14/2026 Start: 02-14-2025 End: 02-14-2026 C-peptide C-peptide Lab Routine Type 2 diabetes mellitus with hyperglycemia, without long-term current use of insulin ([facility] Expected: 02/14/2025 (Approximate), Expires: 02/14/2026 [facility] Work Phone: Comment on above: Expected: 02/14/2025 (Approximate), Expires: 02/14/2026 Start: 02-14-2025 End: 02-14-2026 Lipid 1996 panel - Serum or Plasma Lipid panel Lab Routine Type 2 diabetes mellitus with hyperglycemia, without long-term current use of insulin ([facility] Expected: 02/14/2025 (Approximate), Expires: 02/14/2026 [facility] Comment on above: Expected: 02/14/2025 (Approximate), Expires: 02/14/2026 Start: 02-14-2025 End: 02-14-2026 Microalbumin/Creatinin e panel in random Urine Microalbumin / creatinine urine ratio Lab Routine Type 2 diabetes mellitus with hyperglycemia, without long-term current use of insulin ([facility] Expected: 02/14/2025 (Approximate), Expires: 02/14/2026 [facility] Comment on above: Expected: 02/14/2025 (Approximate), Expires: 02/14/2026 Start: 02-14-2025 End: 02-14-2026 Renal function panel Renal function panel Lab Routine Type 2 diabetes mellitus with hyperglycemia, without long-term current use of insulin ([facility] Expected: 02/14/2025 (Approximate), Expires: 02/14/2026 [facility] Comment on above: Expected: 02/14/2025 (Approximate), Expires: 02/14/2026 Start: 02-14-2025 End: 02-14-2025 Patient encounter procedure 02/14/2025 10:00 AM EDT Office Visit [facility] [address] [place] [phone] Cipriano Max MD [address] [place] [address] Type 2 diabetes mellitus with hyperglycemia, without long-term current use of insulin ([facility] Comment on above: Type 2 diabetes pedro itus with hyperglycemia, without long-term current use of insulin ([facility] Start: 02-07-2025 End: 02-07-2025 Patient encounter procedure 02/07/2025 11:00 AM EDT Office [address] [facility] [address] [place] [phone] Cipriano Max MD [address] [place] [address] [facility] Start: 10-04-2024 End: 10-04-2024 Patient encounter procedure 10/04/2024 11:30 AM EST Office Visit [facility] [address] [place] [phone] Cipriano Max MD [address] [place] [address] Type 2 diabetes mellitus with hyperglycemia, without long-term current use of insulin ([facility]) [facility] Comment on above: Type 2 diabetes pedro itus with hyperglycemia, without long-term current use of insulin ([facility] Start: 05-14-2024 Screening for malignant neoplasm of breast Mammogram [facility] Start: 02-28-2024 End: 02-28-2024 Patient encounter procedure 02/28/2024 10:30 AM EDT Office Visit [facility] [address] [facility] [id number] Abhilash Maza, DPM [address] [facility] [place] [address] [facility] Start: 11-30-2023 End: 11-30-2023 Patient encounter procedure 11/30/2023 10:15 AM EST Office Visit [facility] [address] [facility] [id number] Abhilash Maza DPM [address] [place] [address] Arrived [facility] Comment on above: Arrived Start: 10-28-[address] [facility] Start: 10-28-[address] [facility] Start: 06-18-2018 Influenza vaccinatio n given SEQUENTIAL INFLUENZA VACCINE (#1) [facility] Start: 1991 Screening for malignant neoplasm of cervix [facility] Start: 1982 Screening for malignant neoplasm of cervix Pap Smear [facility] Start: 1961 Hepatitis C antibody , confirmatory test HEPATITIS C SCREENING [facility] Start: 1961 Protein mass conc COLONOSCOPY [facility] Start: 1961 Screening for malignant neoplasm of cervix PAP SMEAR [facility] Start: 1961 Screening for malignant neoplasm of colon [facility] Start: 1961 Tetanus vaccination TETANUS EVERY 10 YR [facility] Patient Education Laceration Rep air With Glue (DC) [facility] Work Phone: Patient referral [facility] Work Phone: Immunizations Immunization Date Immunization Notes Care Provider Fa cility 06-22-2024 influenza virus vacc ine, unspecified formulation Roberto Ramirez [facility] 06-22-2024 pneumococcal 20-balbir nt conjugate vaccine Roberto Ramirez [facility] 06-22-2024 tetanus toxoid, redu randi diphtheria toxoid, and acellular pertussis vaccine, adsorbed Roberto Ramirez [facility] 06-24-2023 influenza virus vacc ine, unspecified formulation Roberto Ramirez [facility] 06-24-2023 influenza, injectabl e, quadrivalent, preservative free Cipriano Max MD Work Phone: [facility] 06-03-2022 influenza virus vacc ine, unspecified formulation Roberto Ramirez [facility] 06-03-2022 influenza, injectabl e, quadrivalent, preservative free Cipriano Max MD Work Phone: [facility] 06-03-2022 zoster vaccine recombinant Roberto Ramirez [facility] 02-27-2022 COVID-19 (Pfizer) MD Roberto Ramirez Work Phone: [facility] 02-27-2022 SARS-CoV-2 mRNA (zwqnrhfueqc-ggyt-fnvjvw e) vaccine Roberto Ramirez [facility] 08-17-2021 COVID-19 (Pfizer) MD Roberto Ramirez Work Phone: [facility] 08-17-2021 SARS-CoV-2 (COVID-19 ) mRNA BNT-162b2 vax Roberto Ramirez [facility] 07-15-2021 influenza virus vacc ine, unspecified formulation Roberto Ramirez [facility] 07-15-2021 influenza, injectabl e, quadrivalent, preservative free Cipriano Max MD Work Phone: [facility] 07-15-2021 zoster vaccine recombinant Roberot Ramirez [facility] 01-31-2021 COVID-19 (Pfizer) MD Roberto Ramirez Work Phone: [facility] 01-31-2021 SARS-CoV-2 (COVID-19 ) mRNA BNT-162b2 vax Roberto Ramirez [facility] 01-10-2021 COVID-19 (Pfizer) MD Roberto Ramirez Work Phone: [facility] 01-10-2021 SARS-CoV-2 (COVID-19 ) mRNA BNT-162b2 vax Roberto Ramirez [facility] 07-21-2020 influenza virus vacc ine, unspecified formulation Roberto Ramirez [facility] 07-21-2020 influenza, injectabl e, quadrivalent, preservative free Cipriano Max MD Work Phone: [facility] 07-21-2020 pneumococcal conjuga te vaccine, 13 valent Roberto Ramirez [facility] 06-06-2019 influenza virus vacc ine, unspecified formulation Roberto Ramirez [facility] 06-06-2019 influenza, injectabl e, quadrivalent, preservative free Cipriano Max MD Work Phone: [facility] 06-22-2018 influenza virus vacc ine, unspecified formulation Roberto Ramirez [facility] 06-22-2018 influenza, injectabl e, quadrivalent, preservative free Cipriano Max MD Work Phone: [facility] 06-22-2018 pneumococcal polysaccharide vaccine, 23 valent Roberto Ramirez [facility] 05-28-2017 influenza virus vacc ine, unspecified formulation Roberto Ramirez [facility] 05-28-2017 influenza, injectabl e, quadrivalent, preservative free Cipriano Max MD Work Phone: [facility] 08-16-2016 influenza virus vacc ine, unspecified formulation Roberto Ramirez [facility] 08-16-2016 influenza, seasonal, injectable, preservative free Cipriano Max MD Work Phone: [facility] 07-31-2015 influenza virus vacc ine, unspecified formulation Roberto Ramirez [facility] 07-31-2015 influenza, seasonal, injectable, preservative free Cipriano Max MD Work Phone: [facility] Healthcare Payers Date Payer Category Payer Self-pay [id number] 2019 Medicaid [employer] [employer] [id number] 2019-Present [address] [place] [address] [id number] 2019 Medicaid (Managed Care) [employer] [id number] 2016 [facility] [employer]AN xxxxxxxxxxxx 2016-Present [id number] 1961 Unknown [id number] [id number]. 903 1961 Unknown [id number] [id number]. 593 1961 Unknown [id number] 2.16.840.1.005989.3.579.2. 593 1961 Unknown [id number] 2.16.840.1.383912.3.579.2. 727 1961 Unknown [id number] 2.16.840.1.072687.3.579.2. 727 1961 Unknown [id number] 2.16.840.1.832486.3.579.2. 1259 1961 Unknown [id number] 2.16.840.1.150044.3.579.2. 1259 1961 Unknown [id number] 2.16.840.1.835214.3.579.2. 1259 1961 Unknown [id number] 2.16.840.1.686882.3.579.2. 727 1961 Unknown [id number] 2.16.840.1.538532.3.579.2. 727 1961 Unknown [id number] 2.16.840.1.490483.3.579.2. 727 1961 Unknown [id number] 2.16.840.1.557266.3.579.2. 727 1961 Unknown [id number] 2.16.840.1.995904.3.579.2. 727 1959 Unknown [id number] Unknown [id number] [id number]. 531 Unknown [id number] [id number]. 531 Social History Date Type Detail Facility Tobacco smoking stat [facility] Unknown if [facility] Sex Assigned At Not on file [facility] Start: 07-08-2023 Tobacco smoking status Never smoked tobacco (finding) [facility] Tobacco smoking status Never [facility] Start: 11-09-2023 End: 02-28-2024 Sex Assigned At Female [facility] Start: 08-25-2023 End: 09-15-2023 Tobacco smoking status Ex-smoker (finding) [facility] Start: 1960 Sex Assigned At Female [facility] Start: 10-18-1975 End: 10-18-2016 History of tobacco use Current smoker [facility] Start: 10-18-1975 End: 10-18-2016 History of tobacco use Cigarette Smoker [facility] Start: 09-15-2023 End: 02-28-2024 Cigarettes smoked current (pack per day) - Reported 2 [facility] Start: 09-15-2023 Tobacco use and exposure Smokeless tobacco non-user [facility] Start: 11-09-2023 End: 09-19-2024 Alcohol intake Lifetime non-drinker (finding) [facility] Start: 07-14-2023 Gender identity Identifies as female gender (finding) [facility] Start: 07-14-2023 Sexual orientation Heterosexual (finding) [facility] Medical Equipment Procedure Code Equipment Code Equipment Origin al Text Equipment Identifier Dates Start: 11-10-2023 Goals Date Patient Goal Desired Activity /State Functional Status Date Assessment Result Facility 08-25-2023 Functional Status N/A General [facility]ino murali [facility] Clinical Notes 09-22-2022 to 02-22-2025 Cipriano Max MD - 02/14/2025 10:00 AM Joy Max MD - 10/04/2024 11:30 AM NADEGEtecarter Maza DPM - 11/30/2023 10:15 AM ESTPatient InstructionsRadiology Note Date & Type Note Facility 02-22-2025 Note Patient Education Nutrition BMI for Adults Body mass index (BMI) is a number found using a person's weight and height. BMI can help tell how much of a person's weight is made up of fat. BMI does not measure body fat directly. It is used instead of tests that directly measure body fat, which can be difficult and expensive. What are BMI measurements used for? BMI is useful to: ??? Find out if your weight puts you at higher risk for medical problems. ??? Help recommend changes, such as in diet and exercise. This can help you reach a healthy weight. BMI screening can be done again to see if these changes are working. How is BMI calculated? Your height and weight are measured. The BMI is found from those numbers. This can be done with U.S. or metric measurements. Note that charts and online BMI calculators are available to help you find your BMI quickly and easily without doing these calculations. To calculate your BMI in U.S. measurements: 1. Measure your weight in pounds (lb). 2. Multiply the number of pounds by 703. ??? So, for an adult who weighs 150 lb, multiply that number by 703: 150 x 703, which equals 105,450. 3. Measure your height in inches. Then multiply that number by itself to get a measurement called inches squared. ??? So, for an adult who is 70 inches tall, the inches squared measurement is 70 inches x 70 inches, which equals 4,900 inches squared. 4. Divide the total from step 2 (number of lb x 703) by the total from step 3 (inches squared): 105,450 ? 4,900 = 21.5. This is your BMI. To calculate your BMI in metric measurements: 1. Measure your weight in kilograms (kg). ??? For this example, the weight is 70 kg. 2. Measure your height in meters (m). Then multiply that number by itself to get a measurement called meters squared. ??? So, for an adult who is 1.75 m tall, the meters squared measurement is 1.75 m x 1.75 m, which equals 3.1 meters squared. 3. Divide the number of kilograms (your weight) by the meters squared number. In this example: 70 ? 3.1 = 22.6. This is your BMI. What do the results mean? BMI charts are used to see if you are underweight, normal weight, overweight, or obese. The following guidelines will be used: ??? Underweight: BMI less than 18.5. ??? Normal weight: BMI between 18.5 and 24.9. ??? Overweight: BMI between 25 and 29.9. ??? Obese: BMI of 30 or above. BMI is a tool and cannot diagnose a condition. Talk with your health care provider about what your BMI means for you. Keep these notes in mind: ??? Weight includes fat and muscle. Someone with a muscular build, such as an athlete, may have a BMI that is higher than 24.9. In cases like these, BMI is not a correct measure of body fat. ??? If you have a BMI of 25 or higher, your provider may need to do more testing to find out if excess body fat is the cause. ??? BMI is measured the same way for males and females. Females usually have more body fat than males of the same height and weight. Where to find more information For more information about BMI, including tools to quickly find your BMI, go to: ??? Centers for Disease Control and Prevention: cdc.gov ??? [place] Heart Association: heart.org ??? National Heart, Lung, and Blood [place]: nhlbi.nih.gov This information is not intended to replace advice given to you by your health care provider. Make sure you discuss any questions you have with your health care provider. Document Revised: 06/24/2023 Document Reviewed: 06/17/2023 [employer] Patient Education ? [address] [employer] [facility] 02-14-2025 History of Present illness Narrative Kassi Meng is a 64 y.o. female No ref. provider found presents with chief complaint of Diabetes and Follow-up HPI: History of Present Illness The patient is a 64-year-old female who presents for follow-up of diabetes. She reports no alterations in her medication regimen. However, she occasionally omits the second dose of glimepiride but ensures to take it at least once daily in the morning. She expresses a desire to increase the dosage of Ozempic. Her current treatment includes glimepiride 4 mg twice daily, Jardiance 25 mg once daily, and Ozempic 1 mg weekly. Interim History: 09/2024 Follow-up visit on , a1C 7.3, blood sugar 150, She is glimepiride 4 mg now bid , jardiance 25 mg once daily, Ozempic 1 mg once weekly. Interim History: 05/2024 Follow-up visit on 06/07/2024, a1C 7.9, blood sugar 143, She is glimepiride 4 mg now bid , jardiance 25 mg once daily, Trulicity 3 mg weekly but had allergy to it. Interim History: 01/2024 Follow-up visit on 02/09/2024, a1C 7.6, blood sugar 134, She is glimepiride 4 mg now bid , jardiance 25 mg once daily, Trulicity 3 mg weekly. on statin now. lab on 01/2024 C-PEPTIDE 8, VIT D 44, TC 225, HDL 46, LDL 117, GFR>60. Interim History: 10/2023 Follow-up visit on 11/09/2023, a1C 8.3, blood sugar 106, She is glimepiride 4 mg now bid , jardiance 25 mg once daily, Trulicity 0.75 mg weekly. on statin now Interim History: 07/2023 Follow-up visit on 07/21/2023, a1C 7.5, blood sugar 219, She is glimepiride 4 mg now bid , jardiance 25 mg once daily, trulicity 0.75 mg weekly. on statin Interim History: 04/2023 Follow-up visit on 04/21/2023 . A1c 8.5 , blood sugar 215. She is glimepiride 4 mg now bid , jardiance 25 mg noce daily. on statin Interim History: 12/2022 Follow-up visit on 12/23/2022 . A1c 8.9 , blood sugar 198. She is glimepiride 4 mg now bid ?, jardiance. lab GFR>60, TC 253, HDL 45, TG 273, LDL 153, VIT D 28. not on statin Interim History: 08/2022 Follow-up visit on 08/28/2022. A1c 7.8 , blood sugar 153. She is glimepiride 4 mg now bid, jardiance. Interim History: 02/2022 Follow-up visit on 03/09 2022. A1c 8.5, blood sugar 199. She is glimepiride 4 mg now bid, jardiance just approved for her . lab on 11/2021 TC 250, HDL 45, TG 348, LDL 131 Interim History: 11/2021 Follow-up visit on 12/09/2021. A1c with lab 11.3, blood sugar 302. She is only using glimepiride 4 mg but off for one month since had kid at her house . She is supposed to add Jardiane she is trying to apply for help program for these meds and I signed for her Interim History: 12/2020 Follow-up visit on 12/18/2019. A1c in the office 9.7, blood sugar 256. She is only using glimepiride 4 mg once. She is supposed to add Jardiance and Tradjenta and they state she does not approve it. she is trying to apply for help program for these meds and I signed for her Interim History: 07/2020. Follow-up visit on 07/25/2020. A1c in the office 7.8, blood sugar 134. She is off her medication for couple of weeks. She is only using glimepiride 4 mg once. She is supposed to add Jardiance and Tradjenta and they state she does not approve it. She did not call us for prior authorization, so I told her we need to start glimepiride 4 mg twice a day and Jardiance 25, sample given and prescription sent and we will do PA if needed. Interim History 02/2020. Followup visit on 03/05/2020 for type 2 diabetes. A1c in the office 8.1, blood sugar 129. She is still on glimepiride once a day, supposed to be twice a day. She is on Steglatro 15, and she is not on any DPP-4. She brings her list of medications. She is asking for some weight loss medication she can take over the counter. Amritasandra gives her GI symptoms. Interim History: 11/2019 Followup visit on 12/12/2019. A1c in the office 10.4. She is on alogliptin 25, glimepiride 4 mg twice a day, but not taking that consistently, Steglatro not approved, currently now in the process of approving for Jardiance. I gave her sample of Glyxambi 25/5 once a day until her medication is approved. CT done of abdomen in May 2019 shows 14 mm right adrenal nodules, Hounsfield unit 0 and in the left side 3.4 x 2.5 cm also Hounsfield unit 0 and it was last time 4 .2 x 2.9 cm compared to previous CT. Interim History 09/05: Followup visit on 08/31/2019 for type 2 diabetes. A1c in the office is 8.8. Blood sugar is 344. She is on glimepiride 4 mg twice a day, alogliptin 25 once a day. Interim History 06/05: Followup visit on 05/25/2019 for type 2 diabetes. Blood sugar is 197, Her CGM fell down, so cannot find it. Most likely, it dropped in . She did labs. Aldosterone 1.8, renin 3.04, ratio 0.6. Sodium 138, potassium 4.3, BUN 13, creatinine 0.79, GFR above 60. Total cholesterol 194, HDL 39, triglycerides 212, HDL 112, albumin/creatinine less than 1, vitamin D 16. C-peptide 7.8. 24-hour metanephrine 146 (45-290). 24-hour normetanephrine 482 ([160-500). CAT scan still pending. HPI: 05/05 New patient to this office. Last time seen by me in March 2017, before I left my office, for adrenal nodules on both sides. This time, she was sent from Dr. Keagan Carreon for uncontrolled diabetes. A1c 7.8. Currently, she is on glimepiride 4 mg twice a day and sometimes a second dose. Alogliptin 6.25 once a day. I don't know her kidney function. I reviewed her ultrasounds and labs we did for her adrenal nodules before. W concha I saw her in May 2015, right adrenal nodule mass 3.3 x 1.3, 5.8 HU on precontrast, 44 HU at 75 seconds, 31 HU on delayed imaging. Absolute washout 33%, looks like intermediate nodule. Left nodule was 5 x 3.4 adrenal mass with -4 HU on precontrast, 59 HU at 75 seconds, 12.8 HU at 15 minutes delayed imaging: Absolute washout 77, looks like adenoma. When we did 24-hour urine, total volume in September 2015 was 2215, 24-hour urine creatinine 1322, 24-hour urine metanephrine 128 (58-344), 24-hour urine normetanephrine 461 (55-44). 24-hour urine cortisol 21.3 (less than 45), renin 11.2, aldosterone 5.3. Repeated CAT scan in March 2017 showed right nodule 3.4 x 1.2 cm with 4 HU precontrast, absolute washout 61%, relative washout 55%. Left adrenal nodule 4.2 cm with 7 HU precontrast, absolute washout 75%, relative washout 65%. Both suggestive of adenoma. SUBJECTIVE: MEDICATIONS: Current Outpatient Medications Medication Instructions atorvastatin (LIPITOR) 20 mg, Daily glimepiride (AMARYL) 4 mg, Oral, 2 times daily HYDROcodone-acetaminophen ([place]) 5-325 MG tablet 1 tablet, Every 6 hours PRN Jardiance 25 mg, Oral, Daily lisinopril 10 mg, Daily Multiple Vitamin (multivitamin) tablet 1 tablet, Daily OneTouch Verio test strip Ozempic (2 MG/DOSE) 2 mg, Subcutaneous, Every 7 days ProFe 391.3 (180 Fe) MG capsule 1 capsule, Daily Trulicity 1.5 MG/0.5ML solution pen-injector Umeclidinium [place] (Incruse Ellipta) 62.5 MCG/ACT aerosol powder Inhale ALLERGIES: Allergies Allergen Reactions Latex Hives and Rash causes blisters blisters causes blisters Wound Dressing Adhesive Rash Past Medical History: Diagnosis Date 2016 Colon polyp COPD (chronic obstructive pulmonary disease) (CMS/HCC) Depression (CMS/HCC) Diverticulitis of colon 2015 Diverticulosis HTN (hypertension) (CMS/HCC) Other specified disorders of adrenal gland (CMS/HCC) Rectal bleeding 2014 Type II diabetes mellitus (CMS/HCC) Vitamin D deficiency, unspecified Past Surgical History: Procedure Laterality Date BUNIONECTOMY Right 2008 hammertoes SECTION, LOW TRANSVERSE 1995 COLONOSCOPY FOOT SURGERY 1971 blood vessel broken HYSTERECTOMY 1998 OTHER SURGICAL HISTORY Left 2007 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 No CP with breathing; CARDIO: No CP , SOB or fatigue, No edema, palpitations or dyspnea with exertion GI: No N/V/D or abd. pain; good appetite with no recent change. No heart burn, liver or gallbladder disease; no rectal bleeding or pain : No urinary pain , frequency or odor. MUSCULOSKELETAL: No muscle pain or cramps; no extremity weakness.No joint pain, stiffness, swelling or limitation of movement NEUROLOGY: No H/O seizures, stroke or fainting. No weakness, tremors. Hematology: No bleeding problems or excessive bruising ENDOCRINE: No increase in hunger, thirst or urination; admits compliance to medical management plan Feet: numbness tingling , ulcers or skin break Lab Results Component Value Date HGBA1C 7.1 02/14/2025 HGBA1C 7.3 10/04/2024 Lab Results Component Value Date GLU 144 02/14/2025 GLU 150 10/04/2024 GLU 170 10/28/2023 10/19/2023 3:21 PM 11/30/2023 10:10 AM 02/15/2024 9:00 AM 02/28/2024 10:23 AM 06/07/2024 1:55 PM 10/04/2024 11:46 AM 02/14/2025 9:49 AM Vitals BMI 48.91 kg/m2 48.74 kg/m2 48.1 kg/m2 48.1 kg/m2 47.7 kg/m2 47.94 kg/m2 47.45 kg/m2 BSA (m2) 2.53 m2 2.53 m2 2.51 m2 2.51 m2 2.53 m2 2.51 m2 2.49 m2 Systolic 126 150 120 Diastolic 78 72 64 Heart Rate 70 88 84 SpO2 95 % 99 % Resp 16 18 18 Height (in) 5' 6 5' 6 5' 6 5' 6 5' 6.5 5' 6 5' 6 Weight (lb) 303 302 298 298 300 297 294 Visit Report Report Report Report Report Report ASSESSMENT AND PLAN: Assessment/Plan Diagnoses and all orders for this visit: Adrenal gland disorder ([facility]) Type 2 diabetes mellitus with hyperglycemia, without long-term current use of insulin ([facility]) - POCT glucose manually resulted - POCT glycosylated hemoglobin (Hb A1C) docked device - C-peptide; Future - Vitamin D 25 hydroxy Total; Future - Microalbumin / creatinine urine ratio; Future - Lipid panel; Future - Renal function panel; Future - Semaglutide, 2 MG/DOSE, (Ozempic, 2 MG/DOSE,) 8 MG/3ML solution pen-injector; Inject 2 mg under the skin every 7 (seven) days Primary hypertension ([facility]) Vitamin D deficiency Encounter for dietary consultation Class 3 severe obesity due to excess calories with serious comorbidity and body mass index (BMI) of 45.0 to 49.9 in adult Assessment & Plan 1. Diabetes mellitus. Her A1c level has shown improvement, decreasing from 7.3 to 7.1. Blood sugar is 144. She will continue with her current regimen of glimepiride 4 mg twice daily and Jardiance 25 mg once daily. The dosage of Ozempic will be increased to 2 mg. She is advised to double her current dose until the new prescription is available. A blood work order will be provided during her next visit. Follow up in about 4 months (around 06/16/2025). documented in this encounter [facility] 10-04-2024 History of Present illness Narrative Kassi Meng is a 64 y.o. female Cipriano Max MD presents with chief complaint of Diabetes and Follow-up HPI: Interim History: 09/2024 Follow-up visit on , a1C 7.3, blood sugar 150, She is glimepiride 4 mg now bid , jardiance 25 mg once daily, Ozempic 1 mg once weekly. Interim History: 05/2024 Follow-up visit on 06/07/2024, a1C 7.9, blood sugar 143, She is glimepiride 4 mg now bid , jardiance 25 mg once daily, Trulicity 3 mg weekly but had allergy to it. Interim History: 01/2024 Follow-up visit on 02/09/2024, a1C 7.6, blood sugar 134, She is glimepiride 4 mg now bid , jardiance 25 mg once daily, Trulicity 3 mg weekly. on statin now. lab on 01/2024 C-PEPTIDE 8, VIT D 44, TC 225, HDL 46, LDL 117, GFR>60. Interim History: 10/2023 Follow-up visit on 11/09/2023, a1C 8.3, blood sugar 106, She is glimepiride 4 mg now bid , jardiance 25 mg once daily, Trulicity 0.75 mg weekly. on statin now Interim History: 07/2023 Follow-up visit on 07/21/2023, a1C 7.5, blood sugar 219, She is glimepiride 4 mg now bid , jardiance 25 mg once daily, trulicity 0.75 mg weekly. on statin Interim History: 04/2023 Follow-up visit on 04/21/2023 . A1c 8.5 , blood sugar 215. She is glimepiride 4 mg now bid , jardiance 25 mg noce daily. on statin Interim History: 12/2022 Follow-up visit on 12/23/2022 . A1c 8.9 , blood sugar 198. She is glimepiride 4 mg now bid ?, jardiance. lab GFR>60, TC 253, HDL 45, TG 273, LDL 153, VIT D 28. not on statin Interim History: 08/2022 Follow-up visit on 08/28/2022. A1c 7.8 , blood sugar 153. She is glimepiride 4 mg now bid, jardiance. Interim History: 02/2022 Follow-up visit on 03/09 2022. A1c 8.5, blood sugar 199. She is glimepiride 4 mg now bid, jardiance just approved for her . lab on 11/2021 TC 250, HDL 45, TG 348, LDL 131 Interim History: 11/2021 Follow-up visit on 12/09/2021. A1c with lab 11.3, blood sugar 302. She is only using glimepiride 4 mg but off for one month since had kid at her house . She is supposed to add Jardiane she is trying to apply for help program for these meds and I signed for her Interim History: 12/2020 Follow-up visit on 12/18/2019. A1c in the office 9.7, blood sugar 256. She is only using glimepiride 4 mg once. She is supposed to add Jardiance and Tradjenta and they state she does not approve it. she is trying to apply for help program for these meds and I signed for her Interim History: 07/2020. Follow-up visit on 07/25/2020. A1c in the office 7.8, blood sugar 134. She is off her medication for couple of weeks. She is only using glimepiride 4 mg once. She is supposed to add Jardiance and Tradjenta and they state she does not approve it. She did not call us for prior authorization, so I told her we need to start glimepiride 4 mg twice a day and Jardiance 25, sample given and prescription sent and we will do PA if needed. Interim History 02/2020. Followup visit on 03/05/2020 for type 2 diabetes. A1c in the office 8.1, blood sugar 129. She is still on glimepiride once a day, supposed to be twice a day. She is on Steglatro 15, and she is not on any DPP-4. She brings her list of medications. She is asking for some weight loss medication she can take over the counter. Alex gives her GI symptoms. Interim History: 11/2019 Followup visit on 12/12/2019. A1c in the office 10.4. She is on alogliptin 25, glimepiride 4 mg twice a day, but not taking that consistently, Steglatro not approved, currently now in the process of approving for Daniela. I gave her sample of Glyxambi 25/5 once a day until her medication is approved. CT done of abdomen in May 2019 shows 14 mm right adrenal nodules, Hounsfield unit 0 and in the left side 3.4 x 2.5 cm also Hounsfield unit 0 and it was last time 4 .2 x 2.9 cm compared to previous CT. Interim History 09/05: Followup visit on 08/31/2019 for type 2 diabetes. A1c in the office is 8.8. Blood sugar is 344. She is on glimepiride 4 mg twice a day, alogliptin 25 once a day. Interim History 06/05: Followup visit on 05/25/2019 for type 2 diabetes. Blood sugar is 197, Her CGM fell down, so cannot find it. Most likely, it dropped in . She did labs. Aldosterone 1.8, renin 3.04, ratio 0.6. Sodium 138, potassium 4.3, BUN 13, creatinine 0.79, GFR above 60. Total cholesterol 194, HDL 39, triglycerides 212, HDL 112, albumin/creatinine less than 1, vitamin D 16. C-peptide 7.8. 24-hour metanephrine 146 (45-290). 24-hour normetanephrine 482 ([160-500). CAT scan still pending. HPI: 05/05 New patient to this office. Last time seen by me in March 2017, before I left my office, for adrenal nodules on both sides. This time, she was sent from Dr. Keagan Carreon for uncontrolled diabetes. A1c 7.8. Currently, she is on glimepiride 4 mg twice a day and sometimes a second dose. Alogliptin 6.25 once a day. I don't know her kidney function. I reviewed her ultrasounds and labs we did for her adrenal nodules before. Bucky kern I saw her in May 2015, right adrenal nodule mass 3.3 x 1.3, 5.8 HU on precontrast, 44 HU at 75 seconds, 31 HU on delayed imaging. Absolute washout 33%, looks like intermediate nodule. Left nodule was 5 x 3.4 adrenal mass with -4 HU on precontrast, 59 HU at 75 seconds, 12.8 HU at 15 minutes delayed imaging: Absolute washout 77, looks like adenoma. When we did 24-hour urine, total volume in September 2015 was 2215, 24-hour urine creatinine 1322, 24-hour urine metanephrine 128 (58-344), 24-hour urine normetanephrine 461 (55-44). 24-hour urine cortisol 21.3 (less than 45), renin 11.2, aldosterone 5.3. Repeated CAT scan in March 2017 showed right nodule 3.4 x 1.2 cm with 4 HU precontrast, absolute washout 61%, relative washout 55%. Left adrenal nodule 4.2 cm with 7 HU precontrast, absolute washout 75%, relative washout 65%. Both suggestive of adenoma. SUBJECTIVE: MEDICATIONS: Current Outpatient Medications Medication Instructions atorvastatin (LIPITOR) 20 mg, Daily empagliflozin (JARDIANCE) 25 mg, Oral, Daily glimepiride (AMARYL) 4 mg, Oral, 2 times daily HYDROcodone-acetaminophen ([place]) 5-325 MG tablet 1 tablet, Every 6 hours PRN lisinopril 10 mg, Daily Multiple Vitamin (multivitamin) tablet 1 tablet, Daily OneTouch Verio test strip use 1 TEST STRIP to TEST BLOOD SUGAR once daily ProFe 391.3 (180 Fe) MG capsule 1 capsule, Daily semaglutide (OZEMPIC) 1 mg, Subcutaneous, Weekly Trulicity 1.5 MG/0.5ML solution pen-injector INJECT 1.5 MG SUBCUTANEOUSLY ONCE A WEEK Umeclidinium [place] (Incruse Ellipta) 62.5 MCG/ACT aerosol powder Inhale. ALLERGIES: Allergies Allergen Reactions Latex Hives and Rash causes blisters blisters causes blisters Wound Dressing Adhesive Rash Past Medical History: Diagnosis Date Bronchitis 2017 Colon polyp COPD (chronic obstructive pulmonary disease) (CMS/HCC) Depression (CMS/HCC) Diverticulitis of colon 2014 Diverticulosis HTN (hypertension) (CMS/HCC) Other specified disorders of adrenal gland (CMS/HCC) Rectal bleeding 2014 Type II diabetes mellitus (CMS/HCC) Vitamin D deficiency, unspecified Past Surgical History: Procedure Laterality Date BUNIONECTOMY Right 2007 hammertoes SECTION, LOW TRANSVERSE 1995 COLONOSCOPY FOOT SURGERY 1971 blood vessel broken HYSTERECTOMY 1998 OTHER SURGICAL HISTORY Left 2006 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 No CP with breathing; CARDIO: No CP , SOB or fatigue, No edema, palpitations or dyspnea with exertion GI: No N/V/D or abd. pain; good appetite with no recent change. No heart burn, liver or gallbladder disease; no rectal bleeding or pain : No urinary pain , frequency or odor. MUSCULOSKELETAL: No muscle pain or cramps; no extremity weakness.No joint pain, stiffness, swelling or limitation of movement NEUROLOGY: No H/O seizures, stroke or fainting. No weakness, tremors. Hematology: No bleeding problems or excessive bruising ENDOCRINE: No increase in hunger, thirst or urination; admits compliance to medical management plan Feet: numbness tingling , ulcers or skin break Lab Results Component Value Date HGBA1C 7.3 10/04/2024 Lab Results Component Value Date GLU 150 10/04/2024 GLU 170 10/28/2023 GLU 217 10/28/2023 Visit Vitals BP 150/72 Pulse 88 Resp 18 Ht 5' 6 Wt 297 lb BMI 47.94 kg/m Smoking Status Former BSA 2.51 m ASSESSMENT AND PLAN: Assessment/Plan Diagnoses and all orders for this visit: Type 2 diabetes mellitus with hyperglycemia, without long-term current use of insulin ([facility]) - POCT glucose manually resulted - POCT glycosylated hemoglobin (Hb A1C) docked device - semaglutide (Ozempic) 2 MG/1.5ML solution pen-injector; Inject 1 mg under the skin 1 (one) time per week - empagliflozin (Jardiance) 25 MG; Take 1 tablet (25 mg) by mouth Daily - glimepiride (Amaryl) 4 MG tablet; Take 1 tablet (4 mg) by mouth in the morning and 1 tablet (4 mg) before bedtime. Continue with glimepiride 4 mg twice a day, Jardiance 25 mg once a day, Ozempic 1 mg once weekly. Adrenal gland disorder ([facility]/HCC) CAT scan in March 2017 4.2 cm in the left adrenal and new one in 05/2019 3.4x2.5 cm HU , both suggestive of adenoma. renin, aldosterone, and 24 metanephrine all wnl Primary hypertension ([facility]) Vitamin D deficiency Encounter for dietary consultation Diet and exercise reviewed with the patient Class 3 severe obesity due to excess calories with serious comorbidity and body mass index (BMI) of 45.0 to 49.9 in adult ([facility]) Follow up in about 4 months (around 02/02/2025). documented in this encounter [facility] 09-12-2024 Note Patient Education Nutrition BMI for Adults Body mass index (BMI) is a number found using a person's weight and height. BMI can help tell how much of a person's weight is made up of fat. BMI does not measure body fat directly. It is used instead of tests that directly measure body fat, which can be difficult and expensive. What are BMI measurements used for? BMI is useful to: ??? Find out if your weight puts you at higher risk for medical problems. ??? Help recommend changes, such as in diet and exercise. This can help you reach a healthy weight. BMI screening can be done again to see if these changes are working. How is BMI calculated? Your height and weight are measured. The BMI is found from those numbers. This can be done with U.S. or metric measurements. Note that charts and online BMI calculators are available to help you find your BMI quickly and easily without doing these calculations. To calculate your BMI in [place] measurements: 1. Measure your weight in pounds (lb). 2. Multiply the number of pounds by 703. ??? So, for an adult who weighs 150 lb, multiply that number by 703: 150 x 703, which equals 105,450. 3. Measure your height in inches. Then multiply that number by itself to get a measurement called inches squared. ??? So, for an adult who is 70 inches tall, the inches squared measurement is 70 inches x 70 inches, which equals 4,900 inches squared. 4. Divide the total from step 2 (number of lb x 703) by the total from step 3 (inches squared): 105,450 ? 4,900 = 21.5. This is your BMI. To calculate your BMI in metric measurements: 1. Measure your weight in kilograms (kg). ??? For this example, the weight is 70 kg. 2. Measure your height in meters (m). Then multiply that number by itself to get a measurement called meters squared. ??? So, for an adult who is 1.75 m tall, the meters squared measurement is 1.75 m x 1.75 m, which equals 3.1 meters squared. 3. Divide the number of kilograms (your weight) by the meters squared number. In this example: 70 ? 3.1 = 22.6. This is your BMI. What do the results mean? BMI charts are used to see if you are underweight, normal weight, overweight, or obese. The following guidelines will be used: ??? Underweight: BMI less than 18.5. ??? Normal weight: BMI between 18.5 and 24.9. ??? Overweight: BMI between 25 and 29.9. ??? Obese: BMI of 30 or above. BMI is a tool and cannot diagnose a condition. Talk with your health care provider about what your BMI means for you. Keep these notes in mind: ??? Weight includes fat and muscle. Someone with a muscular build, such as an athlete, may have a BMI that is higher than 24.9. In cases like these, BMI is not a correct measure of body fat. ??? If you have a BMI of 25 or higher, your provider may need to do more testing to find out if excess body fat is the cause. ??? BMI is measured the same way for males and females. Females usually have more body fat than males of the same height and weight. Where to find more information For more information about BMI, including tools to quickly find your BMI, go to: ??? Centers for Disease Control and Prevention: cdc.gov ??? [place] Heart Association: heart.org ??? National Heart, Lung, and Blood [place]: nhlbi.nih.gov This information is not intended to replace advice given to you by your health care provider. Make sure you discuss any questions you have with your health care provider. Document Revised: 06/24/2023 Document Reviewed: 06/17/2023 [employer] Patient Education ? [address] [employer] 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 Thank you for your understanding. Abhilash Maza DPM documented in this encounter [facility] 11-30-2023 Instructions Abhilash Maza DPM - 11/30/2023 10:15 AM EST As noted documented in this encounter [facility] 09-22-2022 Note PROCEDURE: XR HIP RT 2 3V WO PELVIS HISTORY: Pain in right hip joint COMPARISON: None. FINDINGS: BONES:Moderate narrowing of the hip joint space with periarticular degenerative osteophytes. No fracture or dislocation. SOFT TISSUES:No visible soft tissue swelling. EFFUSION:None visible. OTHER: Negative. IMPRESSION: 1. Moderate degenerative joint disease. 2. No acute bone abnormality. Electronically authenticated by: ABHILASH SANTA Date: 2022-09-22 14:35 [facility] Evaluation + Plan note Future Appointments Appointment Date:07/22/2023 09:20:00 AM Scheduled Provider:Ginny Woods Location:[facility] Appointment Type: Open Appointment Date:08/04/2023 03:00:00 PM Scheduled Provider:Roberto Ramirez MD Location:[facility] Appointment Type: Open [facility] Evaluation + Plan note Future Appointments Appointment Date:11/04/2023 01:00:00 PM Scheduled Provider:Roberto Ramirez MD Location:[facility] Appointment Type: Open [facility] [place] Evaluation + Plan note Future Appointments Appointment Date:02/22/2025 01:00:00 PM Scheduled Provider:Roberto Ramirez MD Location:[facility] Appointment Type: Open Diagnostic Tests PendingHCV Antibody RFX to Quant PCR 08/24/24 Future Scheduled TestsMA Mamm Screen w/CAD if perf and 3D Edgar 08/24/24 [facility] Evaluation note No assessment inform ation available [facility] Work Phone: Evaluation note Diagnosis Onychomycosis- Primary Dermatophytosis of nail Dystrophic nail Other specified disease of nail Pain around toenail Difficulty walking Difficulty in walking documented in this encounter [facility] HealthcareEvaluation note* Diagnosis Type 2 diabetes mellitus with hyperglycemia, without long-term current use of insulin ([facility])- Primary Adrenal gland disorder ([facility]) Primary hypertension ([facility]) Unspecified essential hypertension Vitamin D deficiency Encounter for dietary consultation Class 3 severe obesity due to excess calories with serious comorbidity and body mass index (BMI) of 45.0 to 49.9 in adult ([facility]) documented in this encounter [facility] HealthcareEvaluation note* Diagnosis Adrenal gland disorder ([facility])- Primary Type 2 diabetes mellitus with hyperglycemia, without long-term current use of insulin ([facility]) Primary hypertension ([facility]) Unspecified essential hypertension Vitamin D deficiency Encounter for dietary consultation Class 3 severe obesity due to excess calories with serious comorbidity and body mass index (BMI) of 45.0 to 49.9 in adult documented in this encounter [facility] HealthcareHospital course Narrative No data available for this section [facility] No data available for this section [facility] No data available for this section [facility] Assessments Diagnosis Low back pain Lumbago Advance [...] section and content) DATE CREATED AUTHOR 07/23/2019 [facility] DATE CREATED AUTHOR AUTHOR'S ORGANIZ ATION 12/26/2022 [facility] DATE CREATED AUTHOR AUTHOR'S ORGANIZ ATION 11/10/2023 [facility] DATE CREATED AUTHOR AUTHOR'S ORGANIZ ATION 08/26/2024 Becerril Javed [facility] ical Center DATE CREATED AUTHOR AUTHOR'S ORGANIZ ATION 08/27/2024 Becerril [place] [facility] ical Center DATE CREATED AUTHOR AUTHOR'S ORGANIZ ATION 08/28/2024 Becerril Javed [facility] ical Center DATE CREATED AUTHOR AUTHOR'S ORGANIZ ATION 09/13/2024 Becerril Javed [facility] ical Center DATE CREATED AUTHOR AUTHOR'S ORGANIZ ATION 02/15/2025 [facility] dical [facility] DATE CREATED AUTHOR AUTHOR'S ORGANIZ ATION 02/24/2025 [facility] Patient Care team informatio n (unrecognized section and content) Team Status: Active Member Role Status Dates Roberto Ramirez MD Primary Care Provider Active Team Status: Inactive Member Role Status Dates Britton Sainz MD Attending Provider Active Roberto Ramirez MD Primary Care Provider Active Technical Translator Relationship Specialty Start Date End Date Roberto Ramirez MD [address] [place] [address] PCP - General Family Medicine 09/15/23 Technical Translator Relationship Specialty Start Date End Date Roberto Ramirez MD [address] [facility] [place] [address] PCP - General Family Medicine 09/15/23 Technical Translator Relationship Specialty Start Date End Date Roberto Ramirez MD [address] [place] [facility] [place] [address] PCP - General Family Medicine 06/16/24 Technical Translator Relationship Specialty Start Date End Date Roberto Ramirez MD [address] [place] [address] PCP - [facility] 06/16/24 Technical Translator Relationship Specialty Start Date End Date Roberto Ramirez MD [address] [facility], [place] [id number] PCP - [facility] 06/16/24 Technical Translator Relationship Specialty Start Date End Date Roberto Ramirez MD [address] [id number] PCP - [facility] 06/16/24 Goals (unrecognized section and content) Goals may be documented in a n alternate section Reason for Visit (unrecogniz ed section and content) Reason Comments DM Foot Care Pt presents today re questing nail care, BS: 147 A1C: 8.1Lv Dr. Max 11-05-2023SS: 9.5-10 Reason Comments Diabetes Follow-up Reason Comments Diabetes Follow-up FOR RECORDS PERTAINING TO PATIENTS WHO ARE [...] BE BASED ON THE PRIMARY CLINICAL RECORDS. [facility] provides no warranty or guarantee of the accuracy or completeness of information in this document.
[2025-02-26 09:06] LABS: Creatinine Urine Random 66.58 mg/dL (20.00-300.00); Microalbumin Urine Random <1.3 mg/dL (<=30.0)
[2025-02-26 10:36] LABS: Chol HDL Ratio 3.8; Cholesterol 210 mg/dL (<=200); HDL Cholesterol 55 mg/dL (40-60); Phosphorus 3.3 mg/dL (2.6-4.7); Triglycerides 184 mg/dL (<=150); VLDL CHOLESTEROL 36.8 mg/dL
[2025-02-27 04:07] LABS: C-Peptide, Serum 7.5 ng/mL (1.1-4.4)
== END 2025-02-26 08:01 | disposition home or self-care (01) ==
LOC: LAB 08:02
PROVIDERS: PCP Family Medicine; Visit Provider Internal Medicine
DX: E11.65 Type 2 diabetes mellitus with hyperglycemia (principal); E78.5 Hyperlipidemia, unspecified; J44.9 Chronic obstructive pulmonary disease, unspecified; Z68.42 Body mass index [BMI] 45.0-49.9, adult; E66.01 Morbid (severe) obesity due to excess calories; I10 Essential (primary) hypertension; Z87.891 Personal history of nicotine dependence
CPT/HCPCS: 36415; 80053; 80061; 82043; 82306; 82570; 83540; 84100; 84681

== ENCOUNTER 2025-02-26 08:05 | Outpatient (OUT) | payer OTHER, SELFPAY ==
--- OUTSIDE RECORDS SUMMARY | 2025-02-26 08:15 | XMS_ITS | CCD ---
Author Organization [facility] Care Team Providers Care Geriatric Social Work Professor Name Role Phone Keagan Gilliland Primary Care Provider RAMÓN ARNETT Attending Unavailable RAMÓN ARNETT Referring Unavailable KEAGAN GILLILAND Primary Care Unavailable CIPRIANO MAX Admitting Unavailable CIPRIANO MAX Consulting Unavailable DARSHANA, DR LESLIE Primary Care Unavailable CIPRIANO MAX Attending Unavailable DARSHANA, DR LESLIE Consulting Unavailable BEAUMONT, DR LESLIE Attending Unavailable DARSHANA, DR LESLIE Admitting Unavailable DARSHANA, DR LESLIE Primary Care Unavailable [facility], DR ABHILASH Hobbs Consulting Unavailable Roberto Ramirez Primary Care Physician [phone] MD Britton Sainz Attending Provider MD Roberto Ramirez Primary Care Provider Britton Sainz Attending Unavailable Roberto Ramirez Primary [...] source) Latex Drug allergy (disorder) 5 [facility] Repository (4 sources) Adhesive bandage; Translations: [Adhesive Bandage] Propensity to adverse reactions to substance Eruption of skin (disorder) [facility] [place] (3 sources) natural latex rubber; Translations: [Latex, Natural Rubber] Allergy to substance 3 [facility] (9 sources) Latex Allergy to substance 6 Hives, Rash [facility] Healthcare Work Phone: (9 sources) Wound Dressing Adhesive Drug Intolerance 3 [facility] (2 sources) No Known Medication Allergies; Translations: [No Known Medication Allergies] Propensity to adverse reactions (disorder) [facility] Repository NEGATED: Highlighted row has been ruled out! (1 source) Drug allergy [facility] NEGATED: Highlighted row has been ruled out! (1 source) Drug allergy [facility] Medications Current Medications Medication Drug Class(es) Dates Sig (Normalized) Sig (Original) 0.25 MG, 0.5 MG Dose 3 ML semaglutide 0.68 MG/ML Pen Injector [Ozempic] (1 source) Start: 07-08-2023 Ozempic 2 mg/3 mL (0.25 mg or 0.5 mg dose) subcutaneous solution 0.25 mg, SubCutaneous, qWeek, # 1 EA, Refills(s) 0, Pharmacy: [id number], 166.5, cm, 07/08/23 8:19:00 EDT, Height/Length Dosing, 136.7, kg, 07/08/23 8:19:00 EDT, Weight Dosing Start Date: 07/08/23 Status: Ordered acetaminophen 325 mg / HYDROcodone bitartrate 5 mg oral tablet (8 sources) Opioid Agonist Start: 10-14-2023 take 1 tablet by mouth every six hours as needed HYDROcodone-acetamin ophen ([place]) 5-325 MG tablet Take 1 tablet by mouth every 6 (six) hours if needed 10/14/2023 Active albuterol 0.83 mg/ml inhalation solution (1 source) beta2-Adrenergi c Agonist Start: 08-24-2024 take 2.5 mg by inhalation every six hours for wheezing albuterol 0.083% Inh Mya 3 mL 2.5 mg, 3 mL, Inhalation, q6hr for wheezing, 60 EA, Refill(s) 0, [facility], 166.5, cm, 08/24/24 13:01:00 EST, [...] hyperglycemia, without long-term current use of insulin ([facility]) Take 1 tablet by mouth once daily 30 tablet 5 12/08/2024 Active fluconazole 150 mg oral tablet (1 source) Azole Antifungal Start: 08-04-2023 take 1 tablet by mouth once Diflucan 150 mg Tab 150 mg = 1 tab(s), Oral, Once, # 1 tab(s), Refills(s) 0, Pharmacy: [facility] #[id number], 166.5, cm, 08/04/23 8:45:00 EDT, Height/Length Dosing, 137.8, kg, 08/04/23 8:45:00 EDT, Weight Dosing Start Date: 08/04/23 Status: Ordered glimepiride 4 mg oral tablet (16 sources) Sulfonylurea Start: 10-14-2023 End: 04-02-2025 take 1 tablet by mouth in the morning glimepiride (Amaryl) 4 MG tablet Indications: Type 2 diabetes mellitus with hyperglycemia, without long-term current use of insulin (CMS/[facility]) Take 1 tablet (4 mg) by mouth [...] daily, # 90 tab(s), Refills(s) 0, Pharmacy: [facility], 166.5, cm, 08/24/24 13:01:00 EST, Height/Length Dosing, 134.5, kg, 08/24/24 13:01:00 EST, Weight Dosing Start Date: 08/24/24 Status: Ordered Start: 08-04-2023 take 1 tablet by sadia once daily lisinopril 40 mg Tab 40 mg = 1 tab(s), Oral, Daily, # 90 tab(s), Refills(s) 0, Pharmacy: [facility] #[id number], 166.5, cm, 08/04/23 8:45:00 EDT, Height/Length Dosing, [...] by mouth in the morning. 0 Active Oj-Ata-Wyxou-Calcium Carb-K1 (Women's 50 Plus Multivitamin) 400 mcg-500 mg calcium-20 mcg Tablet (2 sources) Start: 10-14-2023 take 1 tablet by mouth once daily Fy-Jki-Zdezz-Calcium Carb-K1 (Women's 50 Plus Multivitamin) 400 mcg-500 mg calcium-20 mcg Tablet Active 1 TAB PO Daily October 14, 2023 12:00am polysaccharide iron complex 391 mg oral capsule (9 sources) Start: 08-21-2023 take 1 capsule by mouth once daily ProFe 391.3 (180 Fe) MG capsule Take 1 capsule by mouth Daily 08/21/2023 Active Start: 08-21-2023 take 1 capsule by mo [facility] in the morning ProFe 391.3 (180 Fe) MG capsule Take 1 capsule by mouth in the morning. 08/21/2023 Active ProFe 180 mg oral capsule (2 sources) Start: 08-24-2024 take 1 capsule by mouth once daily ProFe 180 mg oral capsule 180 mg = 1 cap(s), Oral, Daily, # 100 cap(s), Refills(s) 3, Pharmacy: [facility], 166.5, cm, 08/24/24 13:01:00 EST, Height/Length Dosing, 134.5, kg, 08/24/24 13:01:00 EST, Weight Dosing Start Date: 08/24/24 Status: Ordered Start: 07-12-2023 take 1 capsule by [facility] once daily ProFe 180 mg oral capsule 180 mg = 1 cap(s), Oral, Daily, # 100 cap(s), Refills(s) 3, Pharmacy: [facility] #[id number], 166.5, cm, 07/08/23 8:19:00 EDT, Height/Length Dosing, 136.7, kg, 07/08/23 8:19:00 EDT, Weight Dosing Start Date: 07/12/23 Status: Ordered 1 mg dose 1.5 ml semaglutide 1.34 mg/ml pen injector (8 sources) Start: 08-24-2024 End: 03-21-2025 inject 1 mg by subcutaneous injection every week semaglutide (Ozempic) 2 MG/1.5ML solution pen-injector Indications: Type 2 diabetes mellitus with hyperglycemia, without long-term current use of insulin (CMS/[facility]) Inject 1 mg under the skin 1 [...] dry powder inhaler (9 sources) Anticholinergic Umeclidinium [place] (Incruse Ellipta) 62.5 MCG/ACT aerosol powder Inhale [...] (BMI) of 45.0 to 49.9 in adult (CMS/[facility])] 10-04-2024 Chronic Other screening for suspected conditions [...] Daily, # 90 tab(s), Refills(s) 0, [facility], 165.5, cm, 02/22/25 12:53:00 EDT, [...] Daily, # 90 tab(s), Refills(s) 0, Pharmacy: [facility], 165.5, cm, 02/22/25 12:53:00 EDT, Height/Length Dosing, 134.4, kg, 02/22/25 12:53:00 EDT, Weight Dosing Comprehensive Metabolic Panel CT Chest, Low Dose Screening Iron Level 3. BMI 45.0-49.9, adult (Z68.42: Body mass index [BMI] 45.0-49.9, adult) Ordered: rosuvastatin, 20 mg = 1 tab(s), Oral, Daily, # 90 tab(s), Refills(s) 0, Pharmacy: [facility], 165.5, cm, 02/22/25 12:53:00 EDT, Height/Length Dosing, 134.4, kg, 02/22/25 12:53:00 EDT, Weight Dosing Comprehensive Metabolic Panel CT Chest, Low Dose Screening Iron Level Screening mammography documented and reviewed 3014F 4. Morbid obesity (E66.01: Morbid (severe) obesity due to excess calories) Ordered: rosuvastatin, 20 mg = 1 tab(s), Oral, Daily, # 90 tab(s), Refills(s) 0, Pharmacy: [facility], 165.5, cm, 02/22/25 12:53:00 EDT, Height/Length Dosing, 134.4, kg, 02/22/25 12:53:00 EDT, Weight Dosing Comprehensive Metabolic Panel CT Chest, Low Dose Screening Iron Level 5. HTN (hypertension) (I10: Essential (primary) hypertension) Ordered: rosuvastatin, 20 mg = 1 tab(s), Oral, Daily, # 90 tab(s), Refills(s) 0, Pharmacy: [facility], 165.5, cm, 02/22/25 12:53:00 EDT, Height/Length Dosing, 134.4, kg, 02/22/25 12:53:00 EDT, Weight Dosing Comprehensive Metabolic Panel CT Chest, Low Dose Screening Iron Level 6. Former smoker (Z87.891: Personal history of nicotine dependence) Ordered: rosuvastatin, 20 mg = 1 tab(s), Oral, Daily, # 90 tab(s), Refills(s) 0, Pharmacy: [facility], 165.5, cm, 02/22/25 12:53:00 EDT, Height/Length Dosing, 134.4, kg, 02/22/25 12:53:00 EDT, Weight Dosing Comprehensive Metabolic Panel CT Chest, Low Dose Screening Iron Level 7. Hyperlipidemia, unspecified (E78.5) Ordered: rosuvastatin, 20 mg = 1 tab(s), Oral, Daily, # 90 tab(s), Refills(s) 0, Pharmacy: [facility], 165.5, cm, 02/22/25 12:53:00 EDT, Height/Length Dosing, 134.4, kg, 02/22/25 12:53:00 EDT, Weight Dosing Comprehensive Metabolic Panel Iron Level Orders: MA Mamm Screen w/CAD if perf and 3D Edgar Follow-up No qualifying data available Patient Education BMI for Adults Problem List/Past Medical History [place] (more content not included)... Normal [facility] Comment on above: Result Comment: Elec tronically [...] 7. H (more content not included)... Normal [facility] Comment on above: Result Comment: Elec tronically Signed By: James SORIANO, Roberto Wallace\.br\Date and Time Signed: 02/22/25 13:18 EDT Glucose (Bld) [Mass/Vol]on 0 02-14-2025 Glucose Blood, POC 144 mg/dL [facility] - Hematology and Cell countson 02-14-2025 HbA1c (Bld) [Mass fraction] 7.1 % [facility] No Panel Informationon 02-14 [facility] Glucose (Bld) [Mass/Vol]Orde red By: Arelis Esqueda on 10-04-2024 Glucose Blood, POC 150 mg/dL [facility] - Hematology and Cell countson 10-04-2024 HbA1c (Bld) [Mass fraction] 7.3 % [facility] No Panel InformationOrdered By: Arelis Esqueda on 10-04-2024 [facility] Healthcare Ambulatory Visit Summaryon 1 11-12-2023 Ambulatory Visit Summary Ambulatory Visit Summary KASSI MENG :1960 Visit Date:09/12/2024 Ambulatory Visit Instructions Your Diagnosis BMI 45.0-49.9, adult Exogenous obesity Former smoker Your Care Team Attending Physician - Roberto Ramirez MD Primary Care Physician - Roberto Ramirez MD This Is Your Medications List [facility] Prescription (Handicap Nora, 5 years.) albuterol (albuterol [...] PM EDT With: Roberto Ramirez MD Where: [facility] [place] [id number]- Medications What How Much When Why Instructions [...] choosing us for your care. Normal [facility] Family Medicine Office/Clini c Noteon 09-12-2024 Family Medicine Office/Clinic Note Family Medicine Office/Clinic Note [facility] Staff Kassi is a 64 year old [...] 80-89 mm Hg 3079F Rapid COVID POC 84898 Systolic BP 130-139 mm Hg (Most Recent) 3075F 4. Exogenous obesity (E66.09: Other obesity due to excess calories) Diet and exercise advised Ordered: Body Mass Index (BMI) documented 3008F Current tobacco smoker 1034F Depression Screening Negative 3352F Influenza immunization administered or previously received 4274F Most recent diastolic blood pressure 80-89 mm Hg 3079F Rapid COVID POC 84682 Systolic BP 130-139 mm Hg (Most Recent) 3075F 5. Former smoker (Z87.891: Personal history of nicotine dependence) Please continue to not smoke Ordered: Body Mass Index (BMI) documented 3008F Current tobacco smoker 1034F Depression Screening Negative 3352F Influenza immunization administered or previously received 4274F Most recent diastolic blood pressure 80-89 mm Hg 3079F Rapid COVID POC 35865 Systolic BP 130-139 mm Hg (Most Recent) 3075F Cough (R05.9: Cough, unspecified) Ordered: Rapid COVID POC 10647 Sinus congestion (R09.81: Nasal congestion) Ordered: Rapid COVID POC 48759 Orders: azithromycin, = 1 packet(s), Oral, As Directed, as directed on package labeling, X 5 day(s), # 6 tab(s), Refills(s) 0, Pharmacy: [facility], 165.5, cm, 09/12/24 9:11:00 EST, Height/Length Dosing, 136.6, kg, 09/12/24 9:11:00 EST, Weight Dosing methylPREDNISolone, = 1 packet(s), Oral, As Directed, as directed on package labeling, X 6 day(s), # 21 tab(s), Refills(s) 0, Pharmacy: [facility], 165.5, cm, 09/12/24 9:11:00 EST, Height/Length Dosing, 136.6, kg, 09/12/24 9:11:00 EST, Weight Dosing (more content not included)... [facility] Comment on above: Result Comment: Elec tronically Signed By: James SORIANO, Roberto Wallace\.br\Date and Time Signed: 09/12/24 10:16 EST Provider Letteron 09-05-2024 Provider Letter Provider Letter September 05, 2024 KASSI MENG [address] [address] : 1960 Dear Ms. Kassi Meng , We have been trying to reach you with no success. It is important that you return our call regarding your recent labs upon receiving this letter. Also, at the time of your call, please provide us with your current information. Thank you for your prompt attention to this matter. Sincerely, Dr. Roberto Ramirez [address] [address] [facility] .Interpretation:on 4 HCV Ab IA Ql Comment Invalid Interpretation Code [facility] Comment on above: Result Comment: Not infected with HCV unless early or acute infection is suspected (which may be delayed in an immunocompromised individual), or other evidence exists to indicate HCV infection. Performed at: [facility] [id number] PhD Carlo Berman Performed By: #### 2 [id number] #### [facility] Laboratory [address] [place] [address] HCV Antibody RFX to Quant PC Jah 08-26-2024 HCV IgG IA Ql Non-Reactive Invalid Interpretation Code Non Reactive [facility] Comment on above: Result Comment: Perf ormed at: [facility] [address] [id number] PhD Carlo Berman Performed By: #### 2 [id number] #### [facility] [address] [place] [address] CBC w/ Auto Diffon 4 Basophils/100 WBC (Bld) 0.4 % Normal 0.0-2.0 [facility] Comment on above: Performed By: #### 2 [id number] #### [facility] [address] [place] [address] Basophils/Leukocytes Auto (Bld) [Pure # fraction] 0.1 E9/L Normal 0.0-0.2 [facility] Comment on above: Performed By: #### 2 [id number] #### [facility] [address] [place] [address] Eosinophils (Bld) [#/Vol] 0.2 E9/L Normal 0.0-0.5 [facility] Comment on above: Performed By: #### 2 [id number] #### [facility] [address] [place] [address] Eosinophils/100 WBC (Bld) 1.4 % Normal 0.0-8.0 [facility] Comment on above: Performed By: #### 2 [id number] #### [facility] [address] [place] [address] Erythrocyte distribution width (RBC) [Ratio] 15.2 % High 10.9-14.2 [facility] Comment on above: Performed By: #### 2 [id number] #### [facility] [address] [place] [address] Hematocrit (Bld) [Volume fraction] 49.0 % High 34.0-46.0 [facility] Comment on above: Performed By: #### 2 [id number] #### [facility] [address] [place] [address] Hemoglobin (Bld) [Mass/Vol] 15.9 g/dL Normal 12.0-16.0 [facility] Comment on above: Performed By: #### 2 [id number] #### [facility] [address] [place] [address] Lymphocytes (Bld) [#/Vol] 4.6 E9/L High 1.0-4.0 [facility] Comment on above: Performed By: #### 2 [id number] #### [facility] [address] [place] [address] Lymphocytes/100 WBC (Bld) 28.9 % Normal 14.0-50.0 [facility] Comment on above: Performed By: #### 2 [id number] #### [facility] [address] [place] [address] MCH (RBC) [Entitic mass] 26.2 pg Low 27.0-34.0 [facility] Comment on above: Performed By: #### 2 [id number] #### [facility] [address] [place] [address] MCHC (RBC) [Mass/Vol] 32.5 g/dL Normal 31.4-36.0 [facility] Comment on above: Performed By: #### 2 [id number] #### [facility] [address] [place] [address] MCV (RBC) [Entitic vol] 80.5 fL Normal 80.0-100.0 [facility] Comment on above: Performed By: #### 2 [id number] #### [facility] [address] [place] [address] Monocytes (Bld) [#/Vol] 1.0 E9/L Normal 0.2-1.0 [facility] Comment on above: Performed By: #### 2 [id number] #### [facility] [address] [place] [address] Neutrophils (Bld) [#/Vol] 10.0 E9/L High 2.0-7.5 [facility] Comment on above: Performed By: #### 2 [id number] #### [facility] [address] [place] [address] Neutrophils/100 WBC (Bld) 62.7 % Normal 36.0-75.0 [facility] Comment on above: Performed By: #### 2 [id number] #### [facility] [address] [place] [address] Platelet mean volume (Bld) [Entitic vol] 7.7 fL Normal 6.4-10.8 [facility] Comment on above: Performed By: #### 2 574756 #### [facility] [address] [place] [address] Platelets (Bld) [#/Vol] 377.0 E9/L Normal 150.0-500.0 [facility] Comment on above: Performed By: #### 2 [id number] #### [facility] [address] [place] [address] RBC (Bld) [#/Vol] 6.1 E12/L High 4.3-5.9 [facility] Comment on above: Performed By: #### 2 332907 #### [facility] [address] [place] [address] WBC corrected for nucl RBC Auto (Bld) [#/Vol] 15.9 E9/L High 4.0-11.0 [facility] Comment on above: Performed By: #### 2 [id number] #### [facility] [address] [place] [address] CHEMISTRYOrdered By: Prince Ochoa on 08-24-2024 Albumin [...] (Bld) [Mass fraction] 7.3 % High <=5.9% [facility] ChemAutoSS CMPon 08-24-2024 Albumin [Mass/Vol] 4.6 g/dL Normal 3.3-5.0 [facility] Comment on above: Performed By: #### 2 [id number] #### [facility] [address] [place] [address] Albumin/Globulin (S) [Mass conc ratio] 1.3 Normal 1.1-2.2 [facility] Comment on above: Performed By: #### 2 [id number] #### [facility] [address] [place] [address] ALP [Catalytic activity/Vol] 90 Int._Unit/L Normal 21-98 [facility] Comment on above: Performed By: #### 2 [id number] #### [facility] [address] [place] [address] ALT No additional P-5'-P [Catalytic activity/Vol] 14 Int._Unit/L Normal 6-46 [facility] Comment on above: Performed By: #### 2 [id number] #### [facility] [address] [place] [address] Anion gap [Moles/Vol] 11 mmol/L Normal 6-16 [facility] Comment on above: Performed By: #### 2 [id number] #### [facility] [address] [place] [address] AST [Catalytic activity/Vol] 12 Int._Unit/L Normal 5-43 [facility] Comment on above: Performed By: #### 2 [id number] #### [facility] [address] [place] [address] Bilirubin [Mass/Vol] 0.5 mg/dL Normal 0.0-1.1 [facility] Comment on above: Performed By: #### 2 416009 #### [facility] [address] [place] [address] Calcium [Mass/Vol] 10.2 mg/dL Normal 8.9-11.1 [facility] Comment on above: Performed By: #### 2 238607 #### [facility] [address] [place] [address] Chloride [Moles/Vol] 96 mmol/L Low 101-111 [facility] Comment on above: Performed By: #### 2 [id number] #### [facility] [address] [place] [address] CO2 [Moles/Vol] 35 mmol/L High 21-31 [facility] Comment on above: Performed By: #### 2 [id number] #### [facility] [address] [place] [address] Creatinine [Mass/Vol] 0.9 mg/dL Normal 0.5-1.3 [facility] Comment on above: Performed By: #### 2 [id number] #### [facility] [address] [place] [address] Globulin (S) [Mass/Vol] 3.5 g/dL Normal 1.4-4.0 [facility] Comment on above: Performed By: #### 2 [id number] #### [facility] [address] [place] [address] Glucose [Mass/Vol] 84 mg/dL Normal 55-199 [facility] Comment on above: Performed By: #### 2 [id number] #### [facility] [address] [place] [address] Potassium [Moles/Vol] 4.6 mmol/L Normal 3.5-5.3 [facility] Comment on above: Performed By: #### 2 [id number] #### [facility] [address] [place] [address] Protein [Mass/Vol] 8.1 g/dL High 6.0-7.8 [facility] Comment on above: Performed By: #### 2 [id number] #### [facility] [address] [place] [address] Sodium [Moles/Vol] 137 mmol/L Normal 135-145 [facility] Comment on above: Performed By: #### 2 [id number] #### [facility] [address] [place] [address] Urea nitrogen [Mass/Vol] 15 mg/dL Normal 5-21 [facility] Comment on above: Performed By: #### 2 [id number] #### [facility] [address] [place] [address] Urea nitrogen/Creatinine [Mass ratio] 17 No Units Normal 10-20 [facility] [facility] Comment on above: Performed By: #### 2 [id number] #### [facility] [address] [place] [address] Family Medicine Office/Clini c Noteon 08-24-2024 Family [...] Ordered: Est Preventative 40 to 64 years 79400 2. BMI 40.0-44.9, adult (Z68.41: Body mass index [BMI] 40.0-44.9, adult) BMI education added Ordered: Body Mass Index (BMI) documented 3008F CBC w/ Auto Diff Comprehensive Metabolic Panel Current tobacco non-user 1036F Depression Screening Negative 3352F Est Preventative 40 to 64 years 97725 HCV Antibody RFX to Quant PCR HgbA1c [...] 3352F Est Preventative 40 to 64 years 04877 HCV Antibody RFX to Quant PCR HgbA1c [...] 3352F Est Preventative 40 to 64 years 22133 HCV Antibody RFX to Quant PCR HgbA1c [...] Panel Est Preventative 40 to 64 years 68975 HCV Antibody RFX to Quant PCR HgbA1c Lipid Panel MA Mamm Screen w/CAD if perf and 3D Edgar Urine Microalbumin/Creatin ine Ratio 6. HTN (hypertension) (I10: Essential (primary) hypertension) At goal at this time. Continue on meds as before Ordered: CBC w/ Auto Diff Comprehensive Metabolic Panel Est Preventative 40 to 64 years 77518 HCV Antibody RFX to Quant PCR HgbA1c Lipid Panel MA Mamm Screen w/CAD if perf and 3D Edgar Urine Microalbumin/Creatin ine Ratio 7. Iron deficiency (E61.1: Iron deficiency) Will check labs Ordered: CBC w/ Auto Diff Comprehensive Metabolic Panel Est Preventative 40 to 64 years 80568 HCV Antibody RFX to Quant PCR HgbA1c Lipid Panel MA Mamm Screen w/CAD if perf and 3D Edgar Urine Microalbumin/Creatin ine Ratio 8. Screening mammogram, encounter for (Z12.31: Encounter for screening mammogram for malignant neoplasm of breast) Ordered Ordered: CBC w/ Auto Diff Comprehensive Metabolic Panel Est Preventative 40 to 64 years 60666 HCV Antibody RFX to Quant PCR HgbA1c Lipid Panel Urine Microalbumin/Creatin ine Ratio 9. Type 2 diabetes mellitus (E11.9: Type 2 diabetes mellitus without complications) A1c is ordered. Follow up with Endo Ordered: CBC w/ Auto Diff Comprehensive Metabolic Panel Est Preventative 40 to 64 years 00186 HCV Antibody RFX to Quant PCR HgbA1c Lipid Panel Urine Microalbumin/Creatin ine Ratio Orders: albuterol, 2.5 mg, 3 mL, Inhalation, q6hr for wheezing, 60 EA, Refill(s) 0, [facility] 6075, (more content not included)... Normal [facility] Comment on above: Result Comment: Elec tronically [...] High 4.0 - 11.0 E9/L Remisol Heme [id number] 08-24-2024 HbA1c (Bld) [Mass fraction] 7.3 % High <=5.9 [facility] Comment on above: Performed By: #### 7 [id number] #### [facility] [address] [place] [address] Lipid Panelon 08-24-2024 Cholesterol [Mass/Vol] 254 mg/dL High 120-200 [facility] Comment on above: Performed By: #### 2 [id number] #### [facility] [address] [place] [address] Cholesterol in HDL [Mass/Vol] 52 mg/dL Invalid Interpretation Code [facility] Comment on above: Result Comment: '>= 60 LOW RISK' '<= 40 HIGH RISK' Performed By: #### 2 [id number] #### [facility] [address] [place] [address] Cholesterol in LDL [Mass/Vol] 168 mg/dL High <=129 [facility] Comment on above: Performed By: #### 2 [id number] #### [facility] [address] [place] [address] Cholesterol in VLDL [Mass/Vol] 75 mg/dL High 7-40 [facility] Comment on above: Performed By: #### 2 [id number] #### [facility] [address] [place] [address] Triglyceride [Mass/Vol] 375 mg/dL High <=149 [facility] Comment on above: Performed By: #### 2 [id number] #### [facility] [address] [place] [address] U MA/Cr Ratioon 08-24-2024 Albumin DL <= 20 mg/L (U) [Mass/Vol] mg/dL Normal 0.0-1.9 [facility] Comment on above: Performed By: #### 1 [id number] #### [facility] [address] [place] [address] Albumin/Creatinine DL <= 20 mg/L (U) [Mass ratio] NOT CALCULATED Invalid Interpretation Code .0-30.0 [facility] Comment on above: Result Comment: 30-3 00 mg/g Cr indicates an increased risk for diabetic nephropathy. >300 mg/g Cr is consistent with clinical nephropathy. Performed By: #### 1 [id number] #### [facility] [address] [place] [address] U Creatinine 73.7 mg/dL Invalid Interpretation Code [facility] Comment on above: Performed By: #### 1 [id number] #### [facility] [address] [place] [address] eGFRon 08-24-2024 eGFR 72 mL/min/1.73 m2 Normal >=59 [facility] Comment on above: Performed By: #### 1 [id number] #### [facility] [address] [place] [address] Family Medicine Office/Clini c Noteon 04-14-2024 Family [...] wheezing, 60 EA, Refill(s) 0, [id number], 166.5, cm, 04/14/24 9:09:00 EDT, Height/Length Dosing, 134.7, kg, 04/14/24 9:09:00 EDT, Weight Dosing levofloxacin, 500 mg = 1 tab(s), Oral, q24hr, X 7 day(s), # 7 tab(s), Refills(s) 0, Pharmacy: [facility] #[id number], 166.5, cm, 04/14/24 9:09:00 EDT, Height/Length Dosing, [...] Brother. Prima (more content not included)... Normal [facility] Comment on above: Result Comment: Elec tronically Signed By: Ginny Woods\.br\Date and Time Signed: 04/14/24 09:41 EDT Glucose Glucometer (BldC) [M ass/Vol]Ordered By: Britton Sainz on 10-28-2023 Glucose [Mass/Vol] 170 mg/dL [facility] Comment on above: Random Glucose Refer ence Range is dependent on time and content of last meal. Glucose of more than 200 mg/dL in a nonstressed, ambulatory subject supports the diagnosis of Diabetes Mellitus. Glucose Poct Glucometerson 0 10-28-2023 Glucose [Mass/Vol] 170 mg/dL Normal [facility] Comment on above: Result Comment: [place] Glucose Reference Range is dependent on time and content of last meal. Glucose of more than 200 mg/dL in a nonstressed, ambulatory subject supports the diagnosis of Diabetes Mellitus. PERFORMED BY: [facility] [address] [place] [address] PATHOLOGIST [employer]ICKEN DRESSER MIGUEL FOLEY M.D. Performed By: #### G LUFAIZAN #### Point of Care testing , Commemt1 Glu2: Cleaned Meter Normal [place] Comment on above: Result Comment: PERF ORMED BY: [facility] [address] [place] [address] PATHOLOGIST [employer]ICKEN DRESSER MIGUEL FOLEY M.D. Performed By: #### G LULS #### Point of Care testing , Glucose [Mass/Vol] 217 mg/dL Normal [facility] Comment on above: Result Comment: [place] Glucose Reference Range is dependent on time and content of last meal. Glucose of more than 200 mg/dL in a nonstressed, ambulatory subject supports the diagnosis of Diabetes Mellitus. Performed By: #### G LULS #### Point of Care testing , [place] 10-28-2023 L Specimen: [id number] Received: 10/28/23 Status: GISEL [place] Num: [id number] Spec Type: Surgical Subm Dr: Britton Sainz [...] Location Account Attending Physician Kassi Meng 63/F [place] [id number] Britton Sainz MD SPEC NUM: [id number] RECD: 10/28/23 STATUS: GISEL [place] NUM: [id number] NANNETTE: 10/28/[address] [facility] [address]: Britton Sainz MD ENTERED: 10/28/[address] [facility] [address]: SPEC TYPE: Surgical DEPT: S ORDERED: [...] [id number] Received: 10/28/23 Status: GISEL Dar[place] Num: [id number] Spec Type: Surgical Subm Dr: Britton Sainz MD Tissues: A Skin-Other than Cyst, tag, debridement or plastic repair (RT THIGH MASS) B Skin-Other than Cyst, tag, debridement or plastic repair (LT LABIAL MASS) C Skin-Other than Cyst, tag, debridement or plastic repair (LT CHEST MASS) Procedures: S 100, HE/3, Gross/Micro L4/3, AE1-AE3, Ki-67, SOX-10 Patient: Kassi Meng [id number] (Continued) Specimen: [id number] Received: 10/28/23 (Continued) Gross Description (Continued) Signed (signature on file) Maya Pak MD 11/07/23 2249 Specimen: [id number] Received: 10/28/23 Status: GISEL [place] Num: [id number] Spec Type: Surgical Subm Dr: Britton Sainz MD Tissues: A Skin-Other than Cyst, tag, debridement or plastic repair (RT THIGH MASS) B Skin-Other than Cyst, tag, debridement or plastic repair (LT LABIAL MASS) C Skin-Other than Cyst, tag, debridement or plastic repair (LT CHEST MASS) Procedures: S 100, HE/3, Gross/Micro L4/3, AE1-AE3, Ki-67, SOX-10 Patient: Kassi Meng [id number] (Continued) Specimen: [id number] Received: 10/28/23 (Continued) Gross [...] microscopic examination confirms the diagnosis. CPT Codes 37341, 37685a5 Specimen: [id number] Received: 10/28/23 Status: GISEL [place] Num: [id number] Spec Type: Surgical Subm Dr: Britton Sainz MD Tissues: A Skin-Other than Cyst, tag, debridement or plastic repair (RT THIGH MASS) B Skin-Other than Cyst, tag, debridement or plastic repair (LT LABIAL MASS) C Skin-Other than Cyst, tag, debridement or plastic repair (LT CHEST MASS) Procedures: S 100, HE/3, Gross/Micro L4/3, AE1-AE3, Ki-67, SOX-10 --------- (more content not included)... Normal [facility] No Panel InformationOrdered By: Britton Sainz on 10-28-2023 Bedside Glucose Comment Glu2: cleaned meter [facility] Basic Metabolic Panelon 09-18 Anion gap [Moles/Vol] 10.3 mmol/L Normal 6.0-15.0 [facility] Comment on above: Performed By: #### B MP, CBC #### [facility] [address] [place] [address] [place] Calcium [Mass/Vol] 9.3 mg/dL Normal 8.6-10.3 [facility] Comment on above: Result Comment: PERF ORMED BY: [facility] [address] [place] [address] PATHOLOGIST CHICKEN DRESSER MIGUEL FOLEY M.D. Performed By: #### B MP, CBC #### [facility] [address] [place] [address] [place] Chloride [Moles/Vol] 103 mmol/L Normal 98-107 [facility] Comment on above: Performed By: #### B MP, CBC #### [facility] [address] [place] [id number] [place] CO2 [Moles/Vol] 27.2 mmol/L Normal 21.0-31.0 [facility] Comment on above: Performed By: #### B MP, CBC #### [facility] [address] [place] [address] [place] Creatinine [Mass/Vol] 0.65 mg/dL Normal 0.60-1.20 [facility] Comment on above: Performed By: #### B MP, CBC #### [facility] [address] [place] [address] [place] GFR/1.73 sq M.predicted MDRD (S/P/Bld) [Vol rate/Area] mL/min/{1.73_m2} [facility] Comment on above: Performed By: #### B MP, CBC #### [facility] [address] [place] [address] [place] Glucose [Mass/Vol] 153 mg/dL High 70-100 [facility] Comment on above: Result Comment: [place] Glucose Reference Range is dependent on time and content of last meal. Glucose of more than 200 mg/dL in a nonstressed, ambulatory subject supports the diagnosis of Diabetes Mellitus. ADA recommended reference range Performed By: #### B MP, CBC #### [facility] [address] Potassium [Moles/Vol] 4.5 mmol/L Normal 3.5-5.1 [facility] Comment on above: Performed By: #### B MP, CBC #### [facility] [address] Sodium [Moles/Vol] 136 mmol/L Normal 136-145 [facility] Comment on above: Performed By: #### B MP, CBC #### [facility] [address] Urea nitrogen [Mass/Vol] 15 mg/dL Normal 7-25 [facility] Comment on above: Performed By: #### B MP, CBC #### [facility] [address] Basophils Auto (Bld) [#/Vol] Ordered By: Britton Sainz on 10-14-2023 Basophils (Bld) [#/Vol] 0.1 10*3/uL 0.0-0.2 [facility] Basophils/100 WBC Auto (Bld) Ordered By: Britton Sainz on 10-14-2023 Basophils/100 WBC (Bld) 0.7 % . [facility] Calcium [Mass/volume] in Ser um or PlasmaOrdered By: Britton Sainz on 10-14-2023 Calcium [Mass/Vol] 9.3 mg/dL 8.6-10.3 [facility] Carbon dioxide, total [Moles /volume] in Serum or PlasmaOrdered By: Britton Sainz on 10-14-2023 CO2 [Moles/Vol] 27.2 mmol/L 21.0-31.0 [facility] Chloride [Moles/volume] in S nadege or PlasmaOrdered By: Britton Sainz on 10-14-2023 Chloride [Moles/Vol] 103 mmol/L 98-107 [facility] Complete Blood Count Auto Di ffon 10-14-2023 Basophils (Bld) [#/Vol] 0.1 10*3/uL Normal 0.0-0.2 [facility] Comment on above: Result Comment: PERF ORMED BY: [place] [address] PATHOLOGIST CHICKEN DRESSER MIGUEL FOLEY M.D. Performed By: #### B MP, CBC #### [address] Basophils/100 WBC (Bld) 0.7 % Normal . [facility] Comment on above: Performed By: #### B MP, CBC #### [address] Eosinophils (Bld) [#/Vol] 0.2 10*3/uL Normal 0.0-0.45 [facility] Comment on above: Performed By: #### B MP, CBC #### [address] Eosinophils/100 WBC (Bld) 1.9 % Normal . [facility] Comment on above: Performed By: #### B MP, CBC #### [address] Erythrocyte distribution width (RBC) [Ratio] 14.9 % Normal 11.9-15.3 [facility] Comment on above: Performed By: #### B MP, CBC #### [address] Hematocrit (Bld) [Volume fraction] 46.4 % Normal 34.0-46.4 [facility] Comment on above: Performed By: #### B MP, CBC #### [place] [address] [place] Hemoglobin (Bld) [Mass/Vol] 15.0 g/dL Normal 11.8-15.4 [facility] Comment on above: Performed By: #### B MP, CBC #### [address] Lymphocytes (Bld) [#/Vol] 3.7 10*3/uL Normal 1.00-4.8 [facility] Comment on above: Performed By: #### B MP, CBC #### [address] Lymphocytes/100 WBC (Bld) 32.7 % Normal . [facility] Comment on above: Performed By: #### B MP, CBC #### [address] MCH (RBC) [Entitic mass] 25.5 pg Normal 24.7-34.3 [facility] Comment on above: Performed By: #### B MP, CBC #### [address] MCV (RBC) [Entitic vol] 79.1 fL Low 80-100 [facility] Comment on above: Performed By: #### B MP, CBC #### [address] Mean Corpuscular HGB Conc 32.3 g/dL Normal 32.0-35.0 [facility] Comment on above: Performed By: #### B MP, CBC #### [address] Monocytes (Bld) [#/Vol] 0.5 10*3/uL Normal 0.0-0.8 [facility] Comment on above: Performed By: #### B MP, CBC #### [place] [address] [place] Monocytes/100 WBC (Bld) 4.5 % Normal . [facility] Comment on above: Performed By: #### B MP, CBC #### [address] Neutrophils (Bld) [#/Vol] 6.7 10*3/uL Normal 1.8-7.7 [facility] Comment on above: Performed By: #### B MP, CBC #### [facility] [address] Neutrophils/100 WBC (Bld) 60.2 % Normal . [facility] Comment on above: Performed By: #### B MP, CBC #### [facility] [address] NRBC% 0.1 /100{WBC} Normal 0-0.5 [facility] Comment on above: Performed By: #### B MP, CBC #### [facility] [address] Platelet mean volume (Bld) [Entitic vol] 7.6 fL Normal 6.3-10.7 [facility] Comment on above: Performed By: #### B MP, CBC #### [address] Platelets (Bld) [#/Vol] 303 10*3/uL Normal 150-450 [facility] Comment on above: Performed By: #### B MP, CBC #### [facility] [address] [place] [address] RBC (Bld) [#/Vol] 5.86 10*6/uL High 3.60-5.00 [place] Comment on above: Performed By: #### B MP, CBC #### [address] WBC (Bld) [#/Vol] 11.2 10*3/uL Normal 3.8-11.6 [place] Comment on above: Performed By: #### B MP, CBC #### [address] Creatinine [Mass/volume] in Serum or PlasmaOrdered By: Brittno Sainz on 10-14-2023 Creatinine [Mass/Vol] 0.65 mg/dL 0.60-1.20 [facility] ECG 12 lead ECGon 10-14-2023 ECG 12 lead ECG [facility] [place] [address] [place] [address] Electrocardiograph Report Signed Patient: Kassi Meng MR#: [id number] 0 : 1960 Acct:[id number] Age/Sex: 63 / F ADM Date: 10/14/23 Loc: Room: Type: [facility] Attending Dr: Britton Sainz MD Ordering Provider: [...] Juan Carlos Luna DO 10/14 1535 Normal [facility] Eosinophils Auto (Bld) [#/Vo l]Ordered By: Britton Sainz on 10-14-2023 Eosinophils (Bld) [#/Vol] 0.2 10*3/uL 0.0-0.45 [facility] Eosinophils/100 WBC Auto (Bl d)Ordered By: Britton Sainz on 10-14-2023 Eosinophils/100 WBC (Bld) 1.9 % . [facility] Erythrocyte distribution wid th Auto (RBC) [Ratio]Ordered By: Britton Sainz on 10-14-2023 Erythrocyte distribution width (RBC) [Ratio] 14.9 % 11.9-15.3 [facility] Glucose [Mass/volume] in Ser um or PlasmaOrdered By: Britton Sainz on 10-14-2023 Glucose [Mass/Vol] 153 mg/dL 70-100 [facility] Comment on above: ADA recommended refe rence rangeRandom Glucose Reference Range is dependent on time and content of last meal. Glucose of more than 200 mg/dL in a nonstressed, ambulatory subject supports the diagnosis of Diabetes Mellitus. Hematocrit Auto (Bld) [Volum e fraction]Ordered By: Britton Sainz on 10-14-2023 Hematocrit (Bld) [Volume fraction] 46.4 % 34.0-46.4 [facility] Hemoglobin [Mass/volume] in BloodOrdered By: Britton Sainz on 10-14-2023 Hemoglobin (Bld) [Mass/Vol] 15.0 g/dL 11.8-15.4 [facility] Leukocytes [#/volume] correc mc for nucleated erythrocytes in Blood by Automated counOrdered By: Britton Sainz on 10-14-2023 WBC corrected for nucl RBC Auto (Bld) [#/Vol] 11.2 10*3/uL 3.8-11.6 [facility] Lymphocytes Auto (Bld) [#/Vo l]Ordered By: Britton Sainz on 10-14-2023 Lymphocytes (Bld) [#/Vol] 3.7 10*3/uL 1.00-4.8 [facility] Lymphocytes/100 WBC Auto (Bl d)Ordered By: Britton Sainz on 10-14-2023 Lymphocytes/100 WBC (Bld) 32.7 % . [facility] MCH Auto (RBC) [Entitic mass ]Ordered By: Britton Sainz on 10-14-2023 MCH (RBC) [Entitic mass] 25.5 pg 24.7-34.3 [facility] MCHC Auto (RBC) [Mass/Vol]Or dered By: Britton Sainz on 10-14-2023 MCHC (RBC) [Mass/Vol] 32.3 g/dL 32.0-35.0 [facility] MCV Auto (RBC) [Entitic vol] Ordered By: Britton Sainz on 10-14-2023 MCV (RBC) [Entitic vol] 79.1 fL 80-100 [facility] Monocytes Auto (Bld) [#/Vol] Ordered By: Britton Sainz on 10-14-2023 Monocytes (Bld) [#/Vol] 0.5 10*3/uL 0.0-0.8 [facility] Monocytes/100 WBC Auto (Bld) Ordered By: Britton Sainz on 10-14-2023 Monocytes/100 WBC (Bld) 4.5 % . [facility] Neutrophils Auto (Bld) [#/Vo l]Ordered By: Britton Sainz on 10-14-2023 Neutrophils (Bld) [#/Vol] 6.7 10*3/uL 1.8-7.7 [facility] Neutrophils/100 WBC Auto (Bl d)Ordered By: Britton Sainz on 10-14-2023 Neutrophils/100 WBC (Bld) 60.2 % . [facility] No Panel InformationOrdered By: Britton Sainz on 10-14-2023 Estimated GFR (CKD-EPI) > 60.0 mL/Min [facility] Creatinine Clearance (Chem N/A [facility] Nucleated erythrocytes [Pres ence] in Blood by Automated countOrdered By: Britton Sainz on 10-14-2023 Nucleated RBC Auto Ql (Bld) 0.1 /100{WBC} 0-0.5 [facility] Platelet mean volume Auto (B ld) [Entitic vol]Ordered By: Britton Sainz on 10-14-2023 Platelet mean volume (Bld) [Entitic vol] 7.6 fL 6.3-10.7 [facility] Platelets Auto (Bld) [#/Vol] Ordered By: Britton Sainz on 10-14-2023 Platelets (Bld) [#/Vol] 303 10*3/uL 150-450 [facility] Potassium [Moles/volume] in Serum or PlasmaOrdered By: Britton Sainz on 10-14-2023 Potassium [Moles/Vol] 4.5 mmol/L 3.5-5.1 [facility] RBC Auto (Bld) [#/Vol]Ordere d By: Britton Sainz on 10-14-2023 RBC (Bld) [#/Vol] 5.86 10*6/uL 3.60-5.00 [place] Serum or plasma anion gap de terminationOrdered By: Britton Sainz on 10-14-2023 Anion gap [Moles/Vol] 10.3 mmol/L 6.0-15.0 [facility] Sodium [Moles/volume] in Ser um or PlasmaOrdered By: Britton Sainz on 10-14-2023 Sodium [Moles/Vol] 136 mmol/L 136-145 [facility] Urea nitrogen [Mass/volume] in Serum or PlasmaOrdered By: Britton Sainz on 10-14-2023 Urea nitrogen [Mass/Vol] 15 mg/dL 7-25 [facility] WBC Auto (Bld) [#/Vol]Ordere d By: Britton Sainz on 10-14-2023 WBC (Bld) [#/Vol] 11.2 10*3/uL 3.8-11.6 [place] CHEMISTRYOrdered By: SYSTEM SYSTEM on 07-08-2023 Albumin [...] 9.1 E9/L Normal 4.0 - 11.0 E9/L [facility] HemeAutoSS LIPID PROFILEon 12-22-2022 CHOL-HDL RATIO NORM SEE BELOW Normal [facility] Comment on above: Result Comment: 3.3 - 4.4 LOW RISK 4.4 - 7.1 AVERAGE RISK 7.1 - 11.0 MODERATE RISK >11.0 HIGH RISK Performed By: #### R ENAL, LIPID #### [facility] [address] [address] [address] Martha Sutherland Cholesterol [Mass/Vol] 253 mg/dL Critically high <=200 [facility] Comment on above: Performed By: #### R ENAL, LIPID #### [facility] [address] [place] [address] [address] Martha Sutherland Cholesterol in HDL [Mass/Vol] 45 mg/dL Normal 40-60 [facility] Comment on above: Performed By: #### R ENAL, LIPID #### [facility] [address] [place] [address] [address] Martha Sutherland Cholesterol in LDL [Mass/Vol] 153.4 mg/dL Normal [facility] Comment on above: Performed By: #### R ENAL, LIPID #### [facility] [address] [place] [address] [address] Martha Sutherland Cholesterol.total/Liyah sterol in HDL [Mass ratio] 5.6 {ratio} Normal [facility] Comment on above: Performed By: #### R ENAL, LIPID #### [facility] [address] [place] [address] Dr. Martha Sutherland HDL NORMAL > or = 60 mg/dl - LOW CARDIOVASCULAR RISK <40 mg/dl - HIGH CARDIOVASCULAR RISK Normal [facility] Comment on above: Performed By: #### R ENAL, LIPID #### [facility] [address] [place] [address] [address] Martha Sutherland LDL CALC NORMAL SEE BELOW Normal [facility] Comment on above: Result Comment: <100 mg/dl OPTIMAL 100 - 129 mg/dl NEAR OR ABOVE OPTIMAL 130 - 159 mg/dl BORDERLINE HIGH 160 - 189 mg/dl HIGH >190 mg/dl VERY HIGH Performed By: #### R ENAL, LIPID #### [facility] [address] [place] [address] [address] Martha Sutherland Triglyceride [Mass/Vol] 273 mg/dL Critically high <=150 [facility] Comment on above: Performed By: #### R ENAL, LIPID #### [facility] [address] [place] [address] Dr. Martha Sutherland VLDL CALC 54.6 mg/dL Normal [facility] Comment on above: Performed By: #### R ENAL, LIPID #### [facility] [address] [address] [address] Martha Sutherland MICROALB CREAT RATIO RANDOMo n 12-22-2022 mALB 2.0 mg/L Normal <=30.0 [facility] Comment on above: Performed By: #### M CRR #### [facility] [address] [address] [address] Martha Sutherland MALB CR RATIO 28.7 mg/g Normal 0.0-29.9 [facility] Comment on above: Performed By: #### M CRR #### [facility] [address] [place] [address] Dr. Martha Sutherland MALB CR RATIO RANGE SEE BELOW Normal [facility] Comment on above: Result Comment: NO M ICROALBUMINURIA 0-29 MG/G CLINICAL MICROALBUMINURIA 30-300 MG/G MACROALBUMINURIA >300 MG/G Performed By: #### M CRR #### [facility] [address] [place] [address] Dr. Martha Sutherland URINE CREAT 69.72 mg/dL Normal 20.00-300.00 [facility] Comment on above: Performed By: #### M CRR #### [facility] [address] [address] [address] Martha Sutherland RENAL FUNCTION PANELon 12-22 Albumin [Mass/Vol] 3.6 g/dL Normal 3.4-5.0 [facility] Comment on above: Performed By: #### R ENAL, LIPID #### [facility] [address] [address] [address] Martha Sutherland Calcium [Mass/Vol] 9.2 mg/dL Normal 8.5-10.1 [facility] Comment on above: Performed By: #### R ENAL, LIPID #### [facility] [address] [place] [address] Dr. Martha Sutherland Chloride [Moles/Vol] 102 mmol/L Normal 98-107 [facility] Comment on above: Performed By: #### R ENAL, LIPID #### [facility] [address] [address] [address] Martha Sutherland CO2 [Moles/Vol] 29.6 mmol/L Normal 21.0-32.0 [facility] Comment on above: Performed By: #### R ENAL, LIPID #### [facility] [address] [place] [address] Dr. Martha Sutherland Creatinine [Mass/Vol] 0.76 mg/dL Normal 0.55-1.02 [facility] Comment on above: Performed By: #### R ENAL, LIPID #### [facility] [address] [address] [address] Martha Sutherland EGFR-AF BURUNDIAN >60 Normal >=60 [facility] Comment on above: Performed By: #### R ENAL, LIPID #### [facility] [address] [place] [address] Dr. Martha Sutherland EGFR-NON AF BURUNDIAN >60 Normal >=60 [facility] Comment on above: Performed By: #### R ENAL, LIPID #### [facility] [address] [place] [address] Dr. Martha Sutherland Glucose [Mass/Vol] 212 mg/dL Critically high 74-106 [facility] Comment on above: Performed By: #### R ENAL, LIPID #### [facility] [address] [place] [address] Dr. Martha Sutherland Phosphate [Mass/Vol] 3.3 mg/dL Normal 2.6-4.7 [facility] Comment on above: Performed By: #### R ENAL, LIPID #### [facility] [address] [place] [address] Dr. Martha Sutherland Potassium [Moles/Vol] 5.0 mmol/L Normal 3.5-5.1 [facility] Comment on above: Performed By: #### R ENAL, LIPID #### [facility] [address] [place] [address] Dr. Martha Sutherland Sodium [Moles/Vol] 140 mmol/L Normal 136-145 [facility] Comment on above: Performed By: #### R ENAL, LIPID #### [facility] [address] [place] [address] Dr. Martha Sutherland Urea nitrogen [Mass/Vol] 13.0 mg/dL Normal 7.0-18.0 [facility] Comment on above: Performed By: #### R ENAL, LIPID #### [facility] [address] [address] [address] Martha Sutherland VITAMIN D 25 OHon 12-22-2022 VIT D 25-OH 28.5 ng/mL Normal [facility] Comment on above: Performed By: #### V ITAD #### [facility] [address] [address] [address] Martha Sutherland VIT D RANGES SEE BELOW Normal [facility] Comment on above: Result Comment: <20 ng/mL Vit D deficient 20 - <30 ng/mL Vit D insufficient 30 - 100 ng/mL Vit D sufficient >100 ng/mL Potential Toxicity Performed By: #### V ITAD #### [facility] [address] [address] [address] Martha Sutherland XR LUMBAR SPINE 2-3 [...] FINDINGS: Bones appear osteopenic. There are 5 hip-vvm-qhacnca lumbar type vertebral bodies segments noted. Convex right curvature of the thoracolumbar junction. Pedicles appear symmetric. No compression fracture is identified. No malalignment is seen. Gcbx-ic-cpuvhwje endplate spur along the lumbar spine is noted. Facet disease most pronounced along the lower lumbar spine. Mild calcific plaque in the abdominal aorta is seen. IMPRESSION: 1. Osteopenia. No acute fracture identified. 2. Convex right curvature of the thoracolumbar spine with nado-oe-pqfimyci degenerative disc disease. MPH/aw Workstation ID: [id number] Dictated by: BAYLEE TYSON on WedNov 23, 2018 2:09:01 PM EST Transcribed by: SHOAIB TORRES on WedNov 23, 2018 2:34:25 PM EST Finalized by: BAYLEE TYSON on WedNov 23, 2018 2:38:51 PM EST Normal [facility] Comment on above: Order Comment: Reaso n for exam?:lbp radiates down rt side Injury/Trauma or Illness?:Illness/Other How long have you had these symptoms (acute/chronic)?:Chronic History of cancer?:n Surgeries, chemotherapy, or radiation?:n Type of Exam?:Ongoing Additional signs and symptoms?:n XR Lumbar Spine 2-3 Views (S tandard)on 11-23-2018 1. Osteopenia. No acute fracture identified. 2. Convex right curvature of the thoracolumbar spine with goya-fm-etefnmhe degenerative disc disease. MPH/aw Workstation ID: [id number] [facility] EXAMINATION: XR LUMBAR SPINE 2-3 [...] FINDINGS: Bones appear osteopenic. There are 5 liv-nwu-rrgarjb lumbar type vertebral bodies segments noted. Convex right curvature of the thoracolumbar junction. Pedicles appear symmetric. No compression fracture is identified. No malalignment is seen. Leuy-ef-vlfamtxs endplate spur along the lumbar spine is noted. Facet disease most pronounced along the lower lumbar spine. Mild calcific plaque in the abdominal aorta is seen. [facility] Interface, Rad In [place] Speechq [...] FINDINGS: Bones appear osteopenic. There are 5 ekh-vmp-apstesb lumbar type vertebral bodies segments noted. Convex right curvature of the thoracolumbar junction. Pedicles appear symmetric. No compression fracture is identified. No malalignment is seen. Cyvg-dp-mioxlxsd endplate spur along the lumbar spine is noted. Facet disease most pronounced along the lower lumbar spine. Mild calcific plaque in the abdominal aorta is seen. IMPRESSION: 1. Osteopenia. No acute fracture identified. 2. Convex right curvature of the thoracolumbar spine with nrgh-ud-ejwzfahe degenerative disc disease. MPH/aw Workstation ID: [id number] [facility] Vital Signs Date Time Vital Sign Value Performing Clinician Facility 02-14-2025 09:49-0400 Body height 167.6 cm Cipriano Max MD Work Phone: [facility] 02-14-2025 09:49-0400 Body mass index (BMI) [Ratio] 47.45 kg/m2 Cipriano Max MD Work Phone: [facility] 02-14-2025 09:49-0400 Body weight 133.36 kg Cipriano Max MD Work Phone: [facility] 02-14-2025 09:49-0400 Diastolic blood pressure 64 mm[Hg] Cipriano Max MD Work Phone: [facility] 02-14-2025 09:49-0400 Heart rate 84 /min Cipriano Max MD Work Phone: [facility] 02-14-2025 09:49-0400 Respiratory rate 18 /min Cipriano Max MD Work Phone: [facility] 02-14-2025 09:49-0400 SaO2% (BldA) [Mass fraction] 99 % Cipriano Max MD Work Phone: [facility] 02-14-2025 09:49-0400 Systolic blood pressure 120 mm[Hg] Cipriano Max MD Work Phone: [facility] 10-04-2024 11:46-0500 Body height 167.6 cm Cipriano Max MD Work Phone: [facility] 10-04-2024 11:46-0500 Body mass index (BMI) [Ratio] 47.94 kg/m2 Cipriano Max MD Work Phone: [facility] 10-04-2024 11:46-0500 Body weight 134.72 kg Cipriano Max MD Work Phone: [facility] 10-04-2024 11:46-0500 Diastolic blood pressure 72 mm[Hg] Cipriano Max MD Work Phone: [facility] 10-04-2024 11:46-0500 Heart rate 88 /min Cipriano Max MD Work Phone: [facility] 10-04-2024 11:46-0500 Respiratory rate 18 /min Cipriano Max MD Work Phone: [facility] 10-04-2024 11:46-0500 Systolic blood pressure 150 mm[Hg] Cipriano Max MD Work Phone: [facility] 11-30-2023 10:10-0500 Body height 167.6 cm Abhilash Maza DPM Work Phone: [facility] 11-30-2023 10:10-0500 Body mass index (BMI) [Ratio] 48.74 kg/m2 Abhilash Maza DPM Work Phone: [facility] 11-30-2023 10:10-0500 Body weight 136.99 kg Abhilash Maza DPM Work Phone: [facility] 10-28-2023 10:50-0500 Diastolic blood pressure 83 mm[Hg] MD Roberto Ramirez Work Phone: [facility] 10-28-2023 10:50-0500 Heart rate 68 /min MD Roberto Ramirez Work Phone: [facility] 10-28-2023 10:50-0500 Respiratory rate 18 /min MD Roberto Ramirez Work Phone: [facility] 10-28-2023 10:50-0500 SaO2% (BldA) [Mass fraction] 94 % MD Roberto Ramirez Work Phone: [facility] 10-28-2023 10:50-0500 Systolic blood pressure 164 mm[Hg] MD Roberto Ramirez Work Phone: [facility] 10-28-2023 10:20-0500 Inhaled oxygen flow rate 8 L/min MD Roberto Ramirez Work Phone: [facility] 10-28-2023 09:11-0500 Body height 167.64 cm MD Roberto Ramirez Work Phone: [facility] 10-28-2023 09:11-0500 Body mass index (BMI) [Ratio] 49.1 kg/m2 MD Roberto Ramierz Work Phone: [facility] 10-28-2023 09:11-0500 Body weight 138 kg MD Roberto Ramirez Work Phone: [facility] 10-28-2023 07:23-0500 Body temperature 98 [degF] MD Roberto Ramirez Work Phone: [facility] 08-25-2023 15:05-0500 Blood Pressure Location Caden [facility] 08-25-2023 15:05-0500 Diastolic blood pressure 66 mm[Hg] Caden [facility] 08-25-2023 15:05-0500 Heart rate 64 /min Caden [facility] 08-25-2023 15:05-0500 Respiratory rate 16 /min Caden [facility] 08-25-2023 15:05-0500 Systolic blood pressure 120 mm[Hg] Caden [facility] Encounters Encounter Date Encounter Type Care Provider Facility Start: 02-22-2025 End: 02-22-2025 ambulatory Roberto Ramirez Facility:[facility] Start: 02-14-2025 End: 02-14-2025 Bertramboo flowsnilesh Max MD Work Phone: [facility] Start: 02-14-2025 End: 02-14-2025 [employer] Cipriano Max MD Work Phone: [facility] Start: 02-14-2025 End: 02-14-2025 Office outpatient visit 25 minutes Cipriano Max MD Work Phone: [facility] Comment on above: Adrenal gland disord er (CMS/HCC) (Primary Dx); Type 2 diabetes mellitus with hyperglycemia, without long-term current use of insulin ([facility]); Primary hypertension ([facility]/HCC); Vitamin D deficiency; Encounter for dietary consultation; Class 3 severe obesity due to excess calories with serious comorbidity and body mass index (BMI) of 45.0 to 49.9 in adult Start: 02-14-2025 End: 02-14-2025 ambulatory CIPRIANO MAX Not Available Start: 10-04-2024 End: 10-04-2024 [employer] Cipriano Max MD Work Phone: [facility] Start: 10-04-2024 End: 10-04-2024 [employer] Cipriano Max MD Work Phone: [facility] Start: 10-04-2024 End: 10-04-2024 Office outpatient visit 25 minutes Cipriano Max MD Work Phone: [facility] Comment on above: Type 2 diabetes pedro itus with hyperglycemia, without long-term current use of insulin ([facility]/HCC) (Primary Dx); Adrenal gland disorder (CMS/HCC); Primary hypertension ([facility]); Vitamin D deficiency; Encounter for dietary consultation; Class 3 severe obesity due to excess calories with serious comorbidity and body mass index (BMI) of 45.0 to 49.9 in adult ([facility]/HCC) Start: 10-04-2024 End: 10-04-2024 ambulatory CIPRIANO MAX Not Available Start: 09-12-2024 End: 09-12-2024 ambulatory Roberto Ramirez Facility:[facility] Start: 09-11-2024 End: 09-11-2024 ambulatory Roberto Ramirez Facility: [facility] Start: 08-24-2024 End: 08-24-2024 Lab Drop off Roberto Ramirez [facility] Start: 08-24-2024 End: 08-24-2024 ambulatory Roberto Ramirez Facility:[facility] Start: 04-25-2024 End: 04-25-2024 ambulatory Ginny L Paige Facility: [facility] Start: 04-14-2024 End: 04-14-2024 ambulatory Ginny L Paige Facility: [facility] Start: 02-28-2024 End: 02-28-2024 ambulatory ABHILASH MAZA Not Available Start: 11-30-2023 Bamboo flowsheet Abhilash Yin er DPM Work Phone: [facility] Start: 11-30-2023 Bamboo flowsheet Abhilash Yin er DPM Work Phone: [facility] Start: 11-30-2023 End: 11-30-2023 Office outpatient visit 15 minutes Abhilash Maza DPM Work Phone: [facility] Comment on above: Onychomycosis (Prima ry Dx); Dystrophic nail; Pain around toenail; Difficulty walking Start: 10-28-2023 End: 10-28-2023 ambulatory Britton Sainz Facility:[facility] Start: 10-28-2023 End: 10-28-2023 Admission to same day surgery center MD Roberto Ramirez Work Phone: [facility] [place] Start: 10-28-2023 End: 10-28-2023 ambulatory MD Roberto Ramirez Work Phone: [facility] Work Phone: Start: 10-14-2023 End: 10-14-2023 ambulatory Britton Sainz Facility:[facility] Start: 10-14-2023 End: 10-14-2023 ambulatory MD Roberto Ramirez Work Phone: [facility] Work Phone: Start: 10-14-2023 End: 10-14-2023 Patient encounter procedure MD Roberto Ramirez Work Phone: [facility] Work Phone: Start: 08-25-2023 End: 08-25-2023 Patient encounter procedure Caden Hobbs [facility]Said Tony Start: 07-08-2023 End: 07-08-2023 Lab Drop off Roberto Ramirez [facility] Start: 12-22-2022 End: 12-23-2022 ambulatory CIPRIANO MAX Facility:[facility] Start: 09-22-2022 End: 09-23-[address] KEAGAN GILLILAND Facility:[facility] Start: 11-23-2018 End: 11-24-2018 [facility] Start: 11-23-2018 End: 11-23-2018 [facility] Work Phone: [facility] Comment on above: Low back [...] procedure 06/13/2025 9:50 AM EDT Office Visit [facility] [address] [place] [address] Cipriano Max MD [address] [place] [address] [facility] Start: 02-14-2025 End: 02-14-2026 25-hydroxyvitamin D3 [Mass/volume] in Serum or Plasma Vitamin D 25 hydroxy Total Lab Routine Type 2 diabetes mellitus with hyperglycemia, without long-term current use of insulin ([facility]) Expected: 02/14/2025 (Approximate), Expires: 02/14/2026 [facility] Comment on above: Expected: 02/14/2025 (Approximate), Expires: 02/14/2026 Start: 02-14-2025 End: 02-14-2026 C-peptide C-peptide Lab Routine Type 2 diabetes mellitus with hyperglycemia, without long-term current use of insulin ([facility]) Expected: 02/14/2025 (Approximate), Expires: 02/14/2026 [facility] Work Phone: Comment on above: Expected: 02/14/2025 (Approximate), Expires: 02/14/2026 Start: 02-14-2025 End: 02-14-2026 Lipid 1996 panel - Serum or Plasma Lipid panel Lab Routine Type 2 diabetes mellitus with hyperglycemia, without long-term current use of insulin ([facility]) Expected: 02/14/2025 (Approximate), Expires: 02/14/2026 [facility] Comment on above: Expected: 02/14/2025 (Approximate), Expires: 02/14/2026 Start: 02-14-2025 End: 02-14-2026 Microalbumin/Creatinin e panel in random Urine Microalbumin / creatinine urine ratio Lab Routine Type 2 diabetes mellitus with hyperglycemia, without long-term current use of insulin ([facility]) Expected: 02/14/2025 (Approximate), Expires: 02/14/2026 [facility] Comment on above: Expected: 02/14/2025 (Approximate), Expires: 02/14/2026 Start: 02-14-2025 End: 02-14-2026 Renal function panel Renal function panel Lab Routine Type 2 diabetes mellitus with hyperglycemia, without long-term current use of insulin ([facility]) Expected: 02/14/2025 (Approximate), Expires: 02/14/2026 [facility] Comment on above: Expected: 02/14/2025 (Approximate), Expires: 02/14/2026 Start: 02-14-2025 End: 02-14-2025 Patient encounter procedure 02/14/2025 10:00 AM EDT Office Visit [facility] [address] [place] [phone] Cipriano Max MD [address] [place] [address] Type 2 diabetes mellitus with hyperglycemia, without long-term current use of insulin ([facility]) [facility] Comment on above: Type 2 diabetes pedro itus with hyperglycemia, without long-term current use of insulin ([facility]) Start: 02-07-2025 End: 02-07-2025 Patient encounter procedure 02/07/2025 11:00 AM EDT Office Visit [facility] [address] [place] [address] Cipriano Max MD [address] [place] [address] [facility] Start: 10-04-2024 End: 10-04-2024 Patient encounter procedure 10/04/2024 11:30 AM EST Office Visit [facility] [address] [place] [address] Cipriano Max MD [address] [place] [address] Type 2 diabetes mellitus with hyperglycemia, without long-term current use of insulin ([facility]) [facility] Comment on above: Type 2 diabetes pedro itus with hyperglycemia, without long-term current use of insulin ([facility]) Start: 05-14-2024 Screening for malignant neoplasm of breast Mammogram [facility] Start: 02-28-2024 End: 02-28-2024 Patient encounter procedure 02/28/2024 10:30 AM EDT Office Visit [facility] [address] [facility] [place] [id number] Abhilash Maza, DPM [address] [facility] [place] [address] [facility] Start: 11-30-2023 End: 11-30-2023 Patient encounter procedure 11/30/2023 10:15 AM EST Office Visit [facility] [address] [facility] [place] [id number] Abhilash Maza DPM [address] [place] [address] Arrived [facility] Comment on above: Arrived Start: 10-28-2023 [facility] Start: 10-28-2023 [facility] Start: 06-18-2018 Influenza vaccinatio n given SEQUENTIAL INFLUENZA VACCINE (#1) [facility] Start: 1991 Screening for malignant neoplasm of cervix [facility] Start: 1982 Screening for malignant neoplasm of cervix Pap Smear [facility] Start: 1961 Hepatitis C antibody , confirmatory test HEPATITIS C SCREENING [facility] Start: 1961 Protein mass conc COLONOSCOPY [facility] Start: 1961 Screening for malignant neoplasm of cervix PAP SMEAR [facility] Start: 1961 Screening for malignant neoplasm of colon [facility] Start: 1961 Tetanus vaccination TETANUS EVERY 10 YR [facility] Patient Education Laceration Rep air With Glue (DC) [facility] Work Phone: Patient referral [facility] Work Phone: Immunizations Immunization Date Immunization Notes Care Provider Fa cility 06-22-2024 influenza virus vacc ine, unspecified formulation [facility] 06-22-2024 pneumococcal 20-balbir nt conjugate vaccine [facility] 06-22-2024 tetanus toxoid, redu randi diphtheria toxoid, and acellular pertussis vaccine, adsorbed [facility] 06-24-2023 influenza virus vacc ine, unspecified formulation Roberto Ramirez [facility] 06-24-2023 influenza, injectabl e, quadrivalent, preservative free Cipriano Max MD Work Phone: [facility] 06-03-2022 influenza virus vacc ine, unspecified formulation Roberto Ramirez [facility] 06-03-2022 influenza, injectabl e, quadrivalent, preservative free Cipriano Max MD Work Phone: [facility] 06-03-2022 zoster vaccine recombinant Roberto Ramirez [facility] 02-27-2022 COVID-19 (Pfizer) MD Roberto Ramirez Work Phone: [facility] 02-27-2022 SARS-CoV-2 mRNA (wbcsdfgmndv-pvbg-nliflg e) vaccine Roberto Ramirez [facility] 08-17-2021 COVID-19 (Pfizer) MD Roberto Ramirez Work Phone: [facility] 08-17-2021 SARS-CoV-2 (COVID-19 ) mRNA BNT-162b2 vax Roberto Ramirez [facility] 07-15-2021 influenza virus vacc ine, unspecified formulation Roberto Ramirez [facility] 07-15-2021 influenza, injectabl e, quadrivalent, preservative free Cipriano Max MD Work Phone: [facility] 07-15-2021 zoster vaccine recombinant Roberto Ramirez [facility] 01-31-2021 COVID-19 (Pfizer) MD Roberto Ramirez Work Phone: [facility] 01-31-2021 SARS-CoV-2 (COVID-19 ) mRNA BNT-162b2 vax Roberto Ramirez [facility] 01-10-2021 COVID-19 (Pfizer) MD Roberto Ramirez Work Phone: [facility] 01-10-2021 SARS-CoV-2 (COVID-19 ) mRNA BNT-162b2 vax Roberto Ramirez [facility] 07-21-2020 influenza virus vacc ine, unspecified formulation Roberto Ramirez [facility] 07-21-2020 influenza, injectabl e, quadrivalent, preservative free Cipriano Max MD Work Phone: [facility] 07-21-2020 pneumococcal conjuga te vaccine, 13 valent Roberto Ramirez [facility] 06-06-2019 influenza virus vacc ine, unspecified formulation Roberto Ramirez [facility] 06-06-2019 influenza, injectabl e, quadrivalent, preservative free Cipriano Max MD Work Phone: [facility] 06-22-2018 influenza virus vacc ine, unspecified formulation Roberto Ramirez [facility] 06-22-2018 influenza, injectabl e, quadrivalent, preservative free Cipriano Max MD Work Phone: [facility] 06-22-2018 pneumococcal polysaccharide vaccine, 23 valent Roberto Ramirez [facility] 05-28-2017 influenza virus vacc ine, unspecified formulation Roberto Ramirez [facility] 05-28-2017 influenza, injectabl e, quadrivalent, preservative free Cipriano Max MD Work Phone: [facility] 08-16-2016 influenza virus vacc ine, unspecified formulation Roberto Ramirez [facility] 08-16-2016 influenza, seasonal, injectable, preservative free Cipriano Max MD Work Phone: [facility] 07-31-2015 influenza virus vacc ine, unspecified formulation Roberto Ramirez [facility] 07-31-2015 influenza, seasonal, injectable, preservative free Cipriano Max MD Work Phone: [facility] Healthcare Payers Date Payer Category Payer Self-pay [id number] 2019 Medicaid [employer] [place] [id number] 2019-Present [address] [place] [address] [id number] 2019 Medicaid (Managed Care) [employer] [id number] 2016 [facility] [employer] [employer] xxxxxxxxxxxx 2016-Present [id number] 1961 Unknown [id number] 2.16.840.1.640971.3.579.2. 903 1961 Unknown [id number] 2.16.840.1.296034.3.579.2. 593 1961 Unknown [id number] 2.16.840.1.082796.3.579.2. 593 1961 Unknown [id number] 2.16.840.1.918560.3.579.2. 727 1961 Unknown [id number] 2.16.840.1.057669.3.579.2. 727 1961 Unknown [id number] 2.16.840.1.106867.3.579.2. 1259 1961 Unknown [id number] 2.16.840.1.277303.3.579.2. 1259 1961 Unknown [id number] 2.16.840.1.857164.3.579.2. 1259 1961 Unknown [id number] 2.16.840.1.256693.3.579.2. 727 1961 Unknown [id number] 2.16.840.1.344697.3.579.2. 727 1961 Unknown [id number] 2.16.840.1.000482.3.579.2. 727 1961 Unknown [id number] 2.16.840.1.501040.3.579.2. 727 1961 Unknown [id number] 2.16.840.1.529513.3.579.2. 727 1959 Unknown [id number] Unknown [id number] 2.16.840.1.446259.3.579.2. 531 Unknown [id number] 2.16.840.1.927378.3.579.2. 531 Social History Date Type Detail Facility Tobacco smoking stat [facility] Unknown if ever smoked [facility] Sex Assigned At Not on file [facility] Start: 07-08-2023 Tobacco smoking status Never smoked tobacco (finding) [facility] Tobacco smoking status Never [facility] Start: 11-09-2023 End: 02-28-2024 Sex Assigned At Female [facility] Start: 08-25-2023 End: 09-15-2023 Tobacco smoking status Ex-smoker (finding) [facility] Start: 1960 Sex Assigned At Female [facility] Start: 10-18-1975 End: 10-18-2016 History of tobacco use Current smoker [facility] Start: 10-18-1975 End: 10-18-2016 History of tobacco use Cigarette Smoker [facility] Start: 09-15-2023 End: 02-28-2024 Cigarettes [...] for Disease Control and Prevention: cdc.gov ??? [place] [employer]: heart.org ??? National Heart, Lung, and Blood [place]: nhlbi.nih.gov This information is not intended to replace advice given to you by your health care provider. Make sure you discuss any questions you have with your health care provider. Document Revised: 06/24/2023 Document Reviewed: 06/17/2023 Nu-Pulse Patient Education ? 2023 [employer]. [facility] 02-14-2025 History of Present illness Narrative Kassi [...] 4 mg, Oral, 2 times daily HYDROcodone-acetaminophen ([place]) 5-325 MG tablet 1 tablet, Every 6 hours PRN Jardiance 25 mg, Oral, Daily lisinopril 10 mg, Daily Multiple Vitamin (multivitamin) tablet 1 tablet, Daily OneTouch Verio test strip Ozempic (2 MG/DOSE) 2 mg, Subcutaneous, Every 7 days ProFe 391.3 (180 Fe) MG capsule 1 capsule, Daily Trulicity 1.5 MG/0.5ML solution pen-injector Umeclidinium [place] (Incruse Ellipta) 62.5 MCG/ACT aerosol powder Inhale [...] orders for this visit: Adrenal gland disorder ([facility]) Type 2 diabetes mellitus with hyperglycemia, without long-term current use of insulin ([facility]) - POCT glucose manually resulted - POCT glycosylated hemoglobin (Hb A1C) docked device - C-peptide; Future - Vitamin D 25 hydroxy Total; Future - Microalbumin / creatinine urine ratio; Future - Lipid panel; Future - Renal function panel; Future - Semaglutide, 2 MG/DOSE, (Ozempic, 2 MG/DOSE,) 8 MG/3ML solution pen-injector; Inject 2 mg under the skin every 7 (seven) days Primary hypertension ([facility]) Vitamin D deficiency Encounter for dietary consultation [...] months (around 06/16/2025). documented in this encounter [facility] 10-04-2024 History of Present illness Narrative Kassi [...] 4 mg, Oral, 2 times daily HYDROcodone-acetaminophen ([place]) 5-325 MG tablet 1 tablet, Every 6 hours PRN lisinopril 10 mg, Daily Multiple Vitamin (multivitamin) tablet 1 tablet, Daily OneTouch Verio test strip use 1 TEST STRIP to TEST BLOOD SUGAR once daily ProFe 391.3 (180 Fe) MG capsule 1 capsule, Daily semaglutide (OZEMPIC) 1 mg, Subcutaneous, Weekly Trulicity 1.5 MG/0.5ML solution pen-injector INJECT 1.5 MG SUBCUTANEOUSLY ONCE A WEEK Umeclidinium [place] (Incruse Ellipta) 62.5 MCG/ACT aerosol powder Inhale. [...] hyperglycemia, without long-term current use of insulin ([facility]) - POCT glucose manually resulted - POCT [...] 1 mg once weekly. Adrenal gland disorder ([facility]) CAT scan in March 2017 4.2 cm in the left adrenal and new one in 05/2019 3.4x2.5 cm HU , both suggestive of adenoma. renin, aldosterone, and 24 metanephrine all wnl Primary hypertension ([facility]) Vitamin D deficiency Encounter for dietary consultation Diet and exercise reviewed with the patient Class 3 severe obesity due to excess calories with serious comorbidity and body mass index (BMI) of 45.0 to 49.9 in adult ([facility]) Follow up in about 4 months (around 02/02/2025). documented in this encounter [facility] 09-12-2024 Note Patient Education Nutrition BMI for [...] for Disease Control and Prevention: cdc.gov ??? [place] [employer]: heart.org ??? National Heart, Lung, and Blood [place]: nhlbi.nih.gov This information is not intended to replace advice given to you by your health care provider. Make sure you discuss any questions you have with your health care provider. Document Revised: 06/24/2023 Document Reviewed: 06/17/2023 Nu-Pulse Patient Education ? 2023 [employer]. [facility] 11-30-2023 History of Present illness Narrative Images [...] ONCE A WEEK, Disp: , Rfl: Umeclidinium [place] (Incruse Ellipta) 62.5 MCG/ACT aerosol powder , Inhale., Disp: , Rfl: Allergies Latex and Wound dressing adhesive Past Surgical History Past Surgical History: Procedure Laterality Date [facility] LOW TRANSVERSE 1996 COLONOSCOPY FOOT SURGERY [...] Abhilash Maza DPM documented in this encounter [facility] 11-30-2023 Instructions Abhilash Maza DPM - 11/30/2023 10:15 AM EST As noted documented in this encounter [facility] 09-22-2022 Note PROCEDURE: XR HIP RT 2 3V WO PELVIS HISTORY: Pain in right hip joint COMPARISON: None. FINDINGS: BONES:Moderate narrowing of the hip joint space with periarticular degenerative osteophytes. No fracture or dislocation. SOFT TISSUES:No visible soft tissue swelling. EFFUSION:None visible. OTHER: Negative. IMPRESSION: 1. Moderate degenerative joint disease. 2. No acute bone abnormality. Electronically authenticated by: ABHILASH SANTA Date: 2022-09-22 14:35 [facility] Evaluation + Plan note Future Appointments Appointment Date:07/22/2023 09:20:00 AM Scheduled Provider:Ginny Woods Location:[facility] Appointment Type: Open Appointment Date:08/04/2023 03:00:00 PM Scheduled Provider:Roberto Ramirez MD Location:[facility] Appointment Type: Open [facility] Evaluation + Plan note Future Appointments Appointment Date:11/04/2023 01:00:00 PM Scheduled Provider:Roberto Ramirez MD Location:[facility] Appointment Type: Open [facility] Evaluation + Plan note Future Appointments Appointment Date:02/22/2025 01:00:00 PM Scheduled Provider:Roberto Ramirez MD Location:[facility] Appointment Type: Open Diagnostic Tests PendingHCV Antibody RFX to Quant PCR 08/24/24 Future Scheduled TestsMA Mamm Screen w/CAD if perf and 3D Edgar 08/24/24 [facility] Evaluation note No assessment inform ation available [facility] Work Phone: Evaluation note Diagnosis Onychomycosis- Primary Dermatophytosis of nail Dystrophic nail Other specified disease of nail Pain around toenail Difficulty walking Difficulty in walking documented in this encounter [facility] HealthcareEvaluation note* Diagnosis Type 2 diabetes mellitus with hyperglycemia, without long-term current use of insulin ([facility])- Primary Adrenal gland disorder ([facility]) Primary hypertension ([facility]) Unspecified essential hypertension Vitamin D deficiency Encounter for dietary consultation Class 3 severe obesity due to excess calories with serious comorbidity and body mass index (BMI) of 45.0 to 49.9 in adult ([facility]) documented in this encounter [facility] HealthcareEvaluation note* Diagnosis Adrenal gland disorder ([facility])- Primary Type 2 diabetes mellitus with hyperglycemia, without long-term current use of insulin ([facility]) Primary hypertension ([facility]) Unspecified essential hypertension Vitamin D deficiency Encounter for dietary consultation Class 3 severe obesity due to excess calories with serious comorbidity and body mass index (BMI) of 45.0 to 49.9 in adult documented in this encounter [facility] HealthcareHospital course Narrative No data available for this section [facility] No data available for this section [facility] No data available for this section [facility] Assessments Diagnosis Low back pain Lumbago [...] section and content) DATE CREATED AUTHOR 07/23/2019 [facility] DATE CREATED AUTHOR AUTHOR'S ORGANIZ ATION 12/26/2022 [facility] DATE CREATED AUTHOR AUTHOR'S ORGANIZ ATION 11/10/2023 [facility] DATE CREATED AUTHOR AUTHOR'S ORGANIZ ATION 08/26/[address] [facility] DATE CREATED AUTHOR AUTHOR'S ORGANIZ ATION 08/27/[address] [facility] DATE CREATED AUTHOR AUTHOR'S ORGANIZ ATION 08/28/[address] [facility] DATE CREATED AUTHOR AUTHOR'S ORGANIZ ATION 09/13/[address] [facility] DATE CREATED AUTHOR AUTHOR'S ORGANIZ ATION 02/15/2025 [facility] DATE CREATED AUTHOR AUTHOR'S ORGANIZ ATION 02/24/2025 [facility] Patient Care team informatio n (unrecognized section and content) Team Status: Active Member Role Status Dates Roberto Ramirez MD Primary Care Provider Active Team Status: Inactive Member Role Status Dates Britton Sainz MD Attending Provider Active Roberto Ramirez MD Primary Care Provider Active Geriatric Social Work Professor Relationship Specialty Start Date End Date Roberto Ramirez MD [address] [place] [address] PCP - General Family Medicine 09/15/23 Geriatric Social Work Professor Relationship Specialty Start Date End Date Roberto Ramirez MD [address] [facility] [place] [address] PCP - General Family Medicine 09/15/23 Geriatric Social Work Professor Relationship Specialty Start Date End Date Roberto Ramirez MD [address] [place] [facility] [place] [address] PCP - General Family Medicine 06/16/24 Geriatric Social Work Professor Relationship Specialty Start Date End Date Roberto Ramirez MD [address] [place] [address] PCP - [facility] 06/16/24 Geriatric Social Work Professor Relationship Specialty Start Date End Date Roberto Ramirez MD [address] [facility], [place] [id number] PCP - [facility] 06/16/24 Geriatric Social Work Professor Relationship Specialty Start Date End Date Roberto Ramirez MD [address] [id number] PCP - [facility] 06/16/24 Goals (unrecognized section and [...] BE BASED ON THE PRIMARY CLINICAL RECORDS. [employer] provides no warranty or guarantee of the accuracy or completeness of information in this document.
[2025-02-26 09:17] LABS: Alanine Aminotransferase 20 U/L (14-59); Albumin Globulin Ratio 0.9; Albumin Level 3.2 g/dL (3.4-5.0); Alkaline Phosphatase 104 U/L (46-116); Anion Gap 9.9; Aspartate Amino Transferase <5 U/L (15-37); BUN Creatinine Ratio 21.9; Bilirubin Total 0.5 mg/dL (0.2-1.0); Calcium 9.1 mg/dL (8.5-10.1); Carbon Dioxide 31.5 mmol/L (21.0-32.0); Chloride 99 mmol/L (98-107); Estimated GFR (African America >60 (>=60 mL/min/1.73m^2); Estimated GFR (Non-African Ame >60 (>=60 mL/min/1.73m^2); Globulin 3.7 g/dL; Glucose 122 mg/dL (74-106); Potassium 4.4 mmol/L (3.5-5.1); Sodium 136 mmol/L (136-145); Total Protein 6.9 g/dL (6.4-8.2)
== END 2025-02-26 08:06 | disposition home or self-care (01) ==
LOC: LAB 08:06
PROVIDERS: PCP Family Medicine; Visit Provider Family Medicine
DX: E78.5 Hyperlipidemia, unspecified (principal); E11.9 Type 2 diabetes mellitus without complications; J44.9 Chronic obstructive pulmonary disease, unspecified; Z68.42 Body mass index [BMI] 45.0-49.9, adult; E66.01 Morbid (severe) obesity due to excess calories; I10 Essential (primary) hypertension; Z87.891 Personal history of nicotine dependence
CPT/HCPCS: 36415; 80053; 83540

== ENCOUNTER 2025-03-23 09:20 | Outpatient (OUT) | payer OTHER, SELFPAY ==
--- NOTE | 2025-03-23 09:23 | CT_ITS ---
The [address] [address] Patient Name: MARCIE MENG MRN: [id number] date: 1960 Sex: F Assigned Patient Location: CT Current Patient Location: CT Accession/Order Number: [id number] Exam Date: 03/23/2025 10:56 Report Date: 03/23/2025 11:03 At the request of: RANJIT BARNARD Procedure: CT lung screening low-dose LOW-DOSE SCREENING CHEST CT WITHOUT CONTRAST COMPARISON: None CLINICAL DATA: Smoker for approximately 38 years. Spiral axial low-dose images were obtained through the chest without contrast. Images were reviewed using both narrow and wide window settings. This CT exam was performed using one or more following dose reduction techniques: Automated exposure control, adjustment of the mA and/or kV according to patient size, or use of iterative reconstruction technique. The heart is within normal limits for size. No pericardial effusion is present. Minor coronary artery disease is seen. There is no aortic aneurysm. There is minor plaque at the aortic arch and proximal great vessels. No enlarged lymph nodes are identified. The left thyroid lobe is larger than the right. There are calcifications and suspected nodularity. Slight levoscoliotic curvature and degenerative changes are visualized at this time. There is mild linear scarring or atelectasis at the lung bases. No consolidation, pleural effusion or pneumothorax is noted. No pulmonary nodularity is seen. Limited cuts through the upper abdomen show a left adrenal nodule measuring approximately 3.[address]/CT lung screening low-dose IMPRESSION: MINOR ATELECTASIS AND/OR SCARRING. NO PULMONARY NODULARITY. SUSPECTED LEFT THYROID NODULES WITH CALCIFICATION. FOLLOW-UP ULTRASOUND IS SUGGESTED. INCIDENTAL LEFT ADRENAL NODULE. Impression dictated by: Elsa Allred M.D. 03/23/2025 11:03 AM Dictation Location: [place] [address] Electronically authenticated by: [id number] Y Date: 03/23/2025 11:03
== END 2025-03-23 09:21 | disposition home or self-care (01) ==
LOC: CT 09:20
PROVIDERS: PCP Family Medicine; Visit Provider Family Medicine
DX: E78.5 Hyperlipidemia, unspecified (principal); E11.9 Type 2 diabetes mellitus without complications; J44.9 Chronic obstructive pulmonary disease, unspecified; Z68.42 Body mass index [BMI] 45.0-49.9, adult; E66.01 Morbid (severe) obesity due to excess calories; I10 Essential (primary) hypertension; Z87.891 Personal history of nicotine dependence
CPT/HCPCS: 71271